=== PATIENT | female | born 1960 | race Caucasian/White ===

== ENCOUNTER → 2017-02-09 | Outpatient (CLI) | payer MEDICARE, OTHER ==
[2017-02-09 14:30] LABS: EKG EKG PERFORMED
[2017-02-09 14:58] LABS: CH 33.2; HCT 47.9 % (34.0-46.0); HDW 2.47; HGB 15.8 gm/dL (11.4-16.0); MCH 32.3 pg (25.0-35.0); Mean Platelet Volume 6.9; RBC 4.88 m/uL (3.80-5.40); WBC 11.9 k/uL (3.8-10.6)
[2017-02-09 15:00] LABS: INR 1.1 (<1.1); Partial Thromboplastin Time 25.8 sec (22.0-30.0)
[2017-02-09 15:01] LABS: ALT 26 U/L (9-52); AST 15 U/L (14-36); Alkaline Phosphatase 93 U/L (38-126); Anion Gap 11 mmol/L; Blood Urea Nitrogen 19 mg/dL (7-17); Calcium 10.4 mg/dL (8.4-10.2); Carbon Dioxide 25 mmol/L (22-30); Chloride 106 mmol/L (98-107); Glucose 104 mg/dL (74-99); Non-African American GFR(MDRD) >60 (>60 ml/min/1.73 sqM); Potassium 4.5 mmol/L (3.5-5.1); Sodium 142 mmol/L (137-145); Total Bilirubin 0.7 mg/dL (0.2-1.3); Total Protein 8.3 g/dL (6.3-8.2)
[2017-02-09 15:14] LABS: Appearance,Urine Cloudy (Clear); Bacteria,Urine Occasional /hpf; Bilirubin,Urine Negative (Negative); Glucose,Urine (UA) Negative (Negative); Ketones,Urine Negative (Negative); Leukocyte Esterase,Urine Large (Negative); Mucus,Urine Rare /hpf; Nitrite,Urine Negative (Negative); Particle Count 5813; Protein,Urine Trace (Negative); Specific Gravity,Urine 1.017 (1.001-1.035); Squamous Epithelial Cell,Urine 8 /hpf (0-4); UA Billing (MACRO vs. MICRO) MICRO; Uric Acid Crystals,Urine Occasional /hpf; Urobilinogen,Urine <2.0 mg/dL (<2.0); WBC,Urine 9 /hpf (0-5)
== END | disposition home or self-care (01) ==
LOC: LABPAT 14:18
PROVIDERS: ATTEND Orthopaedic Surgery
DX: Z01.812 Encounter for preprocedural laboratory examination (principal); Z01.818 Encounter for other preprocedural examination
CPT/HCPCS: 80053; 81001; 85027; 85610; 85730; 86850; 86900; 86901; 87070; 93005

== ENCOUNTER 2017-02-17 09:30 | Inpatient (IN) | payer MEDICARE, OTHER ==
[2017-02-16 09:01] VITALS: BMI 28.3
[~2017-02-17 09:30] MED LIST: ACETAMINOPHEN TAB 500 MG TAB PO ONE; MELOXICAM 7.5 MG TAB PO ONE; TRANEXAMIC ACID 1,000 MG in SODIUM CHLORIDE 0.9% 100 ML IVPB ONE; ceFAZolin 2 GM in SODIUM CHLORIDE 0.9% 100 ML IVPB ONE
[2017-02-17] MEDS ORDERED: LACTATED RINGERS 1,000 ML IV ONE ×3 (10:31→16:41)
[2017-02-17] MEDS ORDERED: ONDANSETRON 4 MG/2 ML VIAL IVP ONE (10:32)
[2017-02-17] MEDS ORDERED: DEXAMETHASONE SOD PHOSPHATE 10 MG/ML 1 ML VIAL IV ONE (10:33)
[2017-02-17] MEDS ORDERED: MIDAZOLAM 2 MG/2 ML VIAL IV ONE (12:38)
[2017-02-17] MEDS ORDERED: fentaNYL (PF) 50 MCG/ML 2 ML AMP IV ONE (13:22)
[2017-02-17] MEDS ORDERED: SUCCINYLCHOLINE CHLORIDE 100 MG/5 ML SYR IV ONE (13:27)
[2017-02-17] MEDS ORDERED: LIDOCAINE 1% INJ 10MG/ML (20 ML MDV) ONE (13:27)
[2017-02-17] MEDS ORDERED: SODIUM CHLORIDE 0.9% 100 ML BAG ONE (13:27)
[2017-02-17] MEDS ORDERED: MIDAZOLAM 2 MG/2 ML VIAL ONE (13:27)
[2017-02-17] MEDS ORDERED: SODIUM CHLORIDE 0.9% IRRIG 1,000 ML BTL IRRIGATION ONE (13:27)
[2017-02-17] MEDS ORDERED: GLYCOPYRROLATE 0.2 MG/ML 2 ML VIAL ONE (13:27)
[2017-02-17] MEDS ORDERED: TRANEXAMIC ACID 1,000 MG/10 ML VIAL ONE (13:27)
[2017-02-17] MEDS ORDERED: HEPARIN SODIUM,PORCINE 10,000 UNIT/ML 1 ML VIAL ONE (13:27)
[2017-02-17] MEDS ORDERED: fentaNYL (PF) 50 MCG/ML 2 ML AMP ONE (13:27)
[2017-02-17] MEDS ORDERED: NEOSTIGMINE 1 MG/ML 10 ML VIAL ONE (13:27)
[2017-02-17] MEDS ORDERED: PROPOFOL 10 MG/ML 20 ML VIAL IV ONE (13:27)
[2017-02-17] MEDS ORDERED: ROCURONIUM BROMIDE 10 MG/ML 10 ML VIAL IV ONE (13:27)
[2017-02-17] MEDS ORDERED: MORPHINE SULFATE 10 MG/ML SYRINGE ONE (13:27)
[2017-02-17] MEDS ORDERED: MAGNESIUM HYDROXIDE 2,400 MG/10 ML CUP PO PRN (13:52)
[2017-02-17] MEDS ORDERED: hydrOXYzine PAMOATE 25 MG CAP PO PRN (13:52)
[2017-02-17] MEDS ORDERED: HYDROcodone/APAP 5-325MG 1 EACH TAB PO PRN (13:52)
[2017-02-17] MEDS ORDERED: HYDROmorphone 1 MG/ML 1 ML SYRINGE IVP PRN ×2 (13:52)
[2017-02-17] MEDS ORDERED: NALOXONE 0.4 MG/ML 1 ML VIAL IV PRN (13:52)
[2017-02-17] MEDS ORDERED: ONDANSETRON 4 MG/2 ML VIAL IVP PRN (13:52)
[2017-02-17] MEDS ORDERED: DIAZEPAM 5 MG TAB PO PRN ×2 (13:52)
[2017-02-17] MEDS: ROPIVACAINE 246.25 MG, EPINEPHrine 0.5 MG, KETOROLAC 30 MG, cloNIDine HCL/PF 80 MCG, WA... MISCELLANE ONE ×10 (14:18→14:58)
[2017-02-17] MEDS ORDERED: ceFAZolin 3,000 MG in SODIUM CHLORIDE 0.9% IRRIGATIO 3,000 ML IRRIGATION ONE (14:19)
--- NOTE | 2017-02-17 15:11 | P.OP ---
Date of Procedure: 02/17/17 Preoperative Diagnosis: Severe osteoarthritis left hip Postoperative Diagnosis: Severe osteoarthritis left hip Procedure(s) Performed: Left total hip arthroplasty with a direct anterior approach Implants: Francois and nephew Polarstem size 2 standard [employer]ois [employer] Nephew R3, 3 hole acetabular shell, 50 mm [employer]ois [employer]hew reflection 6.5 mm cancellus screw, 20 mm 2 [employer]hew R3, XLPE 20 acetabular liner [employer]ois [employer]hew Oxinium femoral head 32 m, +8 All components were press-fit. The articulation is ceramic on polyethylene. Anesthesia: spinal Surgeon: Darwin Garcia Electronics Lead #1: Susi Romero Electronics Lead #2: Elyssa Díaz Estimated Blood Loss (ml): 150 (63cc returned with cell saver) Pathology: other (Femoral head) Condition: stable Disposition: PACU Indications for Procedure: After failure of conservative treatment we discussed the surgical and nonsurgical treatment options at length. Patient wishes to proceed with a total hip arthroplasty with a direct anterior approach. Complications specific to this procedure were discussed at length, including but not limited to infection, leg length discrepancy, dislocation, and nerve injury. Patient is aware of all these complications and informed consent was obtained Operative Findings: The operative findings are consistent with severe osteoarthritis the left hip Description of Procedure: Patient was seen and evaluated in the preoperative area, consent was reviewed, and the surgical site was marked with a skin marker. Patient was then brought to the operating room and given prophylactic antibiotics intravenously. 1 g of Tranexamic acid was also given. A spinal anesthetic was administered by the anesthesia department. The patient was then placed on the [place] table with the bony prominences well-padded. The hip area was then prepped and draped in usual sterile fashion. A universal timeout was then performed, which confirmed the patient's name, surgical site, ALLERGIES, and procedure being performed. Next the incision site was located at 1 cm distal and 1 cm lateral to the anterior superior iliac spine. The skin and subcutaneous tissues were sharply incised. Incision was carefully dissected down to the fascia overlying the tensor fascia romario muscle. This fascia was then incised in line with the incision. Next, using blunt finger dissection, the tensor fascia romario muscle was dissected off its investing fascia. The muscle was then carefully retracted laterally with a cobra retractor over the lateral neck of the femur. Next, the circumflex vessels were identified and cauterized using the AquaMantis device. The anterior hip capsule was then exposed. The capsule was then opened and an inverted T fashion. Retention sutures were placed in the inferior arms of the capsule. Cobra retractors were then placed intracapsularly. The proximal femur was then visualized. The femoral neck was then osteotomized appropriate level above the lesser trochanter. Small amount of traction was placed with the [place] table. A small wedge of bone was then removed from the remaining femoral head. Next, using a corkscrew femoral head was easily removed from the acetabulum. On gross visual inspection, the femoral head had complete loss of articular cartilage in multiple periarticular osteophytes. Attention was then turned to the acetabulum. the acetabulum was exposed and any remaining labrum was excised. Sequential reaming of the acetabulum was performed using fluoroscopic guidance. When the appropriate size was reached, a trial was then placed. The position and fit of the trial was checked with fluoroscopy. The trial was then removed. Then, using fluoroscopic guidance, the final implant was impacted at 20 of anteversion and 40 of abduction, and fully seated in the acetabulum. 2 screws were then placed in the acetabulum. Again fluoroscopy was used to check position of the screws. Next, the liner was then impacted, with a 20 elevated liner located in the anterior superior quadrant. Component locking was confirmed. Attention was then directed to the femur. With the aid of the [place] table, the femur was externally rotated to approximately 130, extended, and abducted under the opposite leg. A side hook was then placed under the proximal femur, and the side hook elevator was used to elevate the proximal femur. Retractors were then placed. A capsular release was performed, as well as a release of the conjoined tendon, which afforded excellent visualization of the proximal femur. Next, a box osteotome was used to lateralize the proximal femur. A hand i thermal cutter was then used to locate the femoral canal. Sequential broaching was then performed with appropriate size which afforded excellent fixation in the proximal femur. A trial was then placed with appropriate head and neck, and the hip was gently reduced with the aid of the [place] table. Fluoroscopy was then used to check position of the components, as well as to ensure equal leg lengths. The hip was then gently dislocated and the trials were then removed. Final implants were then impacted and the hip was again reduced. Final fluoroscopic x-rays confirmed that the components were in anatomic position, as well as equal leg lengths. The hip was also taken through range of motion, and found to be stable. The hip was then copiously irrigated with antibiotic solution with pulsatile lavage. The hip was then irrigated with Irrisept solution. The soft tissues were then injected with a ropivacaine solution, which consisted of 246.25 mg of ropivacaine, 0.5 mg of epinephrine, 30 mg of Toradol, 80 g of clonidine, and 48.45 mL of sterile water, for a total of 100 mL of fluid injected. A second dose of 1 g of Tranexamic acid was also given. the fascia was then closed with 2-0 strata fix suture. The subcutaneous tissue was closed with 3-0 Vicryl. The subcuticular tissue was closed with 3-0 strata fix suture. The skin was then closed with Dermabond tape. The patient was then transferred to the recovery room in stable condition. The sound assistant CAMILA Padilla was required due to the complexity of surgery , and the need for skilled compliance assistant for positioning, draping, exposure , retraction, and closure of the wound.
--- NOTE | 2017-02-17 15:18 | XR ---
Limited left hip HISTORY: Left hip arthroplasty 3 intraoperative C-arm images document the procedure
--- NOTE | 2017-02-17 15:18 | FL ---
Fluoroscopy HISTORY: Hip arthroplasty 48 seconds fluoroscopy time supplied to the referring clinician. 3 intraoperative C-arm images docum ent the procedure. See dictated report from orthopedic surgery.
[2017-02-17] MEDS ORDERED: HYDROmorphone 1 MG/ML 1 ML SYRINGE IVP ONE ×2 (16:20→16:28)
--- NOTE | 2017-02-17 16:41 | XR ---
EXAMINATION TYPE: XR Hip Limited LT DATE OF EXAM: 02/17/2017 4:21 PM COMPARISON: Pelvis x-ray November 12, 2013 HISTORY: Postop TECHNIQUE: Single view FINDINGS: There is a new left hip prosthesis. Components appear in anatomic position. IMPRESSION: Left hip prosthesis without evidence of a complicating process.
[2017-02-17] MEDS: HYDROmorphone 1 MG/ML 1 ML SYRINGE IVP PRN (18:45)
[2017-02-17] MEDS ORDERED: SENNOSIDES-DOCUSATE SODIUM 1 EACH TAB PO SCH (21:00)
[2017-02-17] MEDS ORDERED: amLODIPine 10 MG TAB PO SCH (21:00)
[2017-02-17] MEDS: HYDROcodone/APAP 5-325MG 1 EACH TAB PO PRN (21:01)
[2017-02-17] MEDS: ASPIRIN 325 MG TAB PO SCH (21:05)
[2017-02-17] MEDS: ceFAZolin 2 GM in SODIUM CHLORIDE 0.9% 100 ML IVPB SCH (21:42)
[2017-02-18] MEDS: HYDROcodone/APAP 5-325MG 1 EACH TAB PO PRN ×2 (03:32→10:42)
[2017-02-18] MEDS ORDERED: LEVOTHYROXINE 25 MCG TAB PO SCH (06:30)
[2017-02-18] MEDS: HYDROmorphone 1 MG/ML 1 ML SYRINGE IVP PRN (07:19)
[2017-02-18 07:21] VITALS: BP 130/90; PULSE 66; RESP 16; TEMP 97.7
[2017-02-18 07:36] LABS: Basophils # (A) 0.1 k/uL (0-0.2); Basophils % (A) 1 %; CH 33.7; Eosinophils # (A) 0.1 k/uL (0-0.7); Eosinophils % (A) 0 %; HCT 37.9 % (34.0-46.0); HDW 2.53; HGB 12.9 gm/dL (11.4-16.0); Luc # (Auto) 0.12; Luc % (Auto) 1; Lymphocytes # (A) 2.2 k/uL (1.0-4.8); Lymphocytes % (A) 19 %; MCH 33.8 pg (25.0-35.0); MCV 99.5 fL (80.0-100.0); Monocytes # (A) 0.6 k/uL (0-1.0); Monocytes % (A) 5 %; Neutrophils # (A) 8.8 k/uL (1.3-7.7); Neutrophils % (A) 75 %; RDW 13.2 % (11.5-15.5); WBC 11.7 k/uL (3.8-10.6); WBC (Perox) 11.04
[2017-02-18] MEDS: ASPIRIN 325 MG TAB PO SCH (08:01)
[2017-02-18] MEDS: SODIUM CHLORIDE 0.9% 1,000 ML IV SCH (08:08)
[2017-02-18] MEDS ORDERED: METOPROLOL SUCCINATE (ER) 100 MG TAB.ER.24H PO SCH (09:00)
[2017-02-18] MEDS ORDERED: LISINOPRIL-HCTZ 10-12.5 MG 1 EACH TAB PO SCH (09:00)
[2017-02-18] MEDS ORDERED: MELOXICAM 7.5 MG TAB PO SCH (09:00)
--- NOTE | 2017-02-18 09:03 | P.DS ---
Providers Date of admission: 02/17/17 09:30 Expected date of discharge: 02/18/17 Attending physician: Darwin Garcia Consults: 02/17/17 13:55 Consult Physician Routine Consulting Provider: Petrona Cardenas Consult Reason/Comments: medical management Do you want consulting provider notified?: Yes 02/17/17 17:51 Consult Physician Routine Consulting Provider: Lashonda Pina Consult Reason/Comments: Medical Management Do you want consulting provider notified?: Yes Primary care physician: Warren Garcia, [facility] Hospital Course: This is a 56-year-old female with known history of degenerative arthritis of the left hip. The patient presents for evaluation. After discussion and consideration patient elects to proceed with total hip arthroplasty. The patient is seen preoperatively by Dr. Garcia and cleared for surgery. Patient is admitted to [facility] on 02/17/2017 for total hip arthroplasty. The procedures performed without complication or sequelae. The patient is doing well postoperatively. Labs and vital signs are stable on day of discharge. On day of discharge patient's hip incision is healing well. Patient has been up walking with physical therapy. There is minimal erythema. There is no drainage noted at this time. There is minimal soft tissue swelling to the hip and thigh. Patient has full foot and ankle motion without difficulty or pain. Neurovascular status to the left lower extremity is intact. Patient is discharged home in good condition.Please see med rec for accurate list of home medications. Plan - Discharge Summary New Discharge Prescriptions: Aspirin 325 mg PO BID #60 tab HYDROcodone/APAP 5-325MG [[place] 5-325] 1 - 2 tab PO Q4-6H PRN #90 tab PRN Reason: Pain Sennosides-Docusate Sodium [Senokot-S] 1 tab PO BID #60 tablet Discharge Medication List amLODIPine [Norvasc] 10 mg PO HS 05/16/14 [History] Aspirin 650 mg PO Q8HR PRN 02/16/17 [History] Celecoxib [CeleBREX] 200 mg PO DAILY 02/16/17 [History] HYDROcodone/APAP 10-325MG [[place] 10-325] 1 tab PO BID PRN 02/16/17 [History] Ibuprofen [Motrin] 800 mg PO Q8HR PRN 02/16/17 [History] Levothyroxine Sodium [Synthroid] 25 mcg PO DAILY 02/16/17 [History] Lisinopril-Hctz 10-12.5 mg [Zestoretic 10-12.5] 1 tab PO QAM 02/16/17 [History] Metoprolol Succinate [Toprol XL] 100 mg PO QAM 02/16/17 [History] Aspirin 325 mg PO BID #60 tab 02/18/17 [Rx] HYDROcodone/APAP 5-325MG [[place] 5-325] 1 - 2 tab PO Q4-6H PRN #90 tab 02/18/17 [ Rx] Sennosides-Docusate Sodium [Senokot-S] 1 tab PO BID #60 tablet 02/18/17 [Rx] Follow up Appointment(s)/Referral(s): Darwin Garcia DO [Doctor of Osteopathic Medicine] - 2 Weeks Activity/Diet/Wound Care/Special Instructions: Weightbearing as tolerated with walker May shower after 2 days if no drainage from the incision Follow-up with [facility] in 2 weeks with any questions or concerns, [phone] Discharge Disposition: HOME WITH HOME HEALTH SERVICES
[2017-02-18] MEDS: ceFAZolin 2 GM in SODIUM CHLORIDE 0.9% 100 ML IVPB SCH (09:18)
--- NOTE | 2017-02-18 11:52 | P.CONS ---
History of Present Illness - Reason for Consult Consult date: 02/18/17 Medical management Requesting physician: Sukhwinder Mukherjee - Chief Complaint Left hip pain - History of Present Illness This is a 56-year-old female with past medical history noted below significant for severe osteoarthritis of the left hip who was admitted to the hospital for elective total left hip arthroplasty. Patient is postoperative day #1. She's tolerated the procedure well. She was up with physical therapy earlier with no difficulty. She denies any pain or discomfort at this time. I was asked to see her for medical management. Review of Systems Review of system: 14 points review of systems were obtained and were negative except to what were mentioned in the HPI. Past Medical History Past Medical History: GERD/Reflux, Hypertension, Musculoskeletal Disorder, Osteoarthritis (OA), Thyroid Disorder Additional Past Medical History / Comment(s): Past hx of GERD & Migraines., DDD , chronic back pain, scoliosis. History of Any Multi-Drug Resistant Organisms: None Reported Past Surgical History: Cholecystectomy, Joint Replacement Additional Past Surgical History / Comment(s): ORIF left ankle, exploratory laparotomy, Tear duct surgery, Total right hip. Past Anesthesia/Blood Transfusion Reactions: No Reported Reaction Past Psychological History: No Psychological Hx Reported Smoking Status: Current every day smoker Past Alcohol Use History: None Reported Additional Past Alcohol Use History / Comment(s): SMOKES < PPD. SMOKING SINCE 15 YEARS OLD (41 YEARS) Past Drug Use History: None Reported - Past Family History Mother Family Medical History: No Reported History Father Family Medical History: No Reported History Medications and Allergies Home Medications Medication Instructions Recorded Confirmed Type amLODIPine [Norvasc] 10 mg PO HS 05/16/14 02/17/17 History Aspirin 650 mg PO Q8HR PRN 02/16/17 02/17/17 History Celecoxib [CeleBREX] 200 mg PO DAILY 02/16/17 02/17/17 History HYDROcodone/APAP 10-325MG [[place] 1 tab PO BID PRN 02/16/17 02/17/17 History 10-325] Ibuprofen [Motrin] 800 mg PO Q8HR PRN 02/16/17 02/17/17 History Levothyroxine Sodium [Synthroid] 25 mcg PO DAILY 02/16/17 02/17/17 History Lisinopril-Hctz 10-12.5 mg 1 tab PO QAM 02/16/17 02/17/17 History [Zestoretic 10-12.5] Metoprolol Succinate [Toprol XL] 100 mg PO QAM 02/16/17 02/17/17 History Allergies Allergy/AdvReac Type Severity Reaction Status Date / Time pravastatin Allergy Unknown Short of Verified 02/16/17 08:18 Breath, Anxious codeine Allergy Itching Verified 02/16/17 08:17 sulfamethoxazole Allergy throat Verified 02/16/17 08:17 [From Bactrim] tight trimethoprim [From Bactrim] Allergy throat Verified 02/16/17 08:17 tight Physical Exam Vitals: Vital Signs Temp Pulse Resp BP Pulse Ox 02/18/17 07:00 97.7 F 66 16 130/90 99 02/18/17 01:13 98.2 F 65 17 108/62 93 L 02/18/17 00:00 20 02/17/17 20:00 98.0 F 95 20 121/71 91 L 02/17/17 18:30 70 118/75 02/17/17 18:15 73 125/63 02/17/17 18:00 63 128/82 02/17/17 17:45 78 145/97 02/17/17 17:30 73 122/75 02/17/17 17:15 98.3 F 67 16 119/70 97 02/17/17 16:35 68 16 140/77 96 02/17/17 16:25 67 16 141/84 97 02/17/17 16:05 71 16 140/82 97 02/17/17 15:48 64 16 141/84 98 02/17/17 15:37 97.6 F 79 16 141/73 97 Intake and Output 02/17/17 02/18/17 02/18/17 22:59 06:59 14:59 Intake Total 225 120 Output Total 400 Balance -175 120 Intake: IV 225 Oral 120 Output: Urine 250 Estimated Blood Loss 150 Other: Voiding Method Toilet # Voids 1 Weight 72.575 kg General: The patient is awake and alert, in no distress Eye: there is normal conjunctiva bilaterally. Neck: The neck is supple, there is no JVD. Cardiovascular: Normal S1-S2, no S3-S4, no murmurs. Respiratory: Lungs clear to auscultation bilaterally Gastrointestinal: Abdomen is soft, nontender Musculoskeletal: There is no pedal edema. Neurological:. Speech is normal. Skin: Skin is warm and dry Results CBC & Chem 7: 02/18/17 06:31 Labs: Abnormal Lab Results - Last 24 Hours (Table) 02/18/17 Range/Units 06:31 WBC 11.7 H (3.8-10.6) k/uL Neutrophils # 8.8 H (1.3-7.7) k/uL Assessment and Plan Plan: 1. Severe osteoarthritis of the left hip status post total left hip arthroplasty postoperative day #1 2. DVT prophylaxis currently with full dose aspirin twice daily per orthopedic protocol 3. Essential hypertension: Blood pressure well controlled 4. Hypothyroidism, maintained on Synthroid Today, I reviewed her medication list and lab work results. Continue current regimen. Thank you very much for the consultation. Patient is medically cleared for discharge. Resume home medication as ordered.
== END 2017-02-18 13:38 | disposition home health service (06) | DRG 470 ==
LOC: 2ORMAIN 09:30 → 3SUR 16:11
PROVIDERS: ADMIT Orthopaedic Surgery; ATTEND Orthopaedic Surgery
PROC: 0SRB04A Replacement of Left Hip Joint with Ceramic on Polyethylene Synthetic Substitute, Uncemented, Open Approach (ICD-10-PCS; principal; 2017-02-17 11:45)
DX: M16.12 Unilateral primary osteoarthritis, left hip (principal); M41.9 Scoliosis, unspecified; I10 Essential (primary) hypertension; F17.200 Nicotine dependence, unspecified, uncomplicated; K21.9 Gastro-esophageal reflux disease without esophagitis; M19.91 Primary osteoarthritis, unspecified site; E03.9 Hypothyroidism, unspecified; G89.29 Other chronic pain; M54.9 Dorsalgia, unspecified; Z96.641 Presence of right artificial hip joint; Z90.49 Acquired absence of other specified parts of digestive tract; Z79.82 Long term (current) use of aspirin; Z79.1 Long term (current) use of non-steroidal anti-inflammatories (NSAID); Z79.899 Other long term (current) drug therapy
CPT/HCPCS: 73501; 85025; 86850; 86900; 86901; 88300

== ENCOUNTER 2018-09-23 06:42 | Day surgery (SDC) | payer MEDICARE, OTHER ==
[2018-09-21 15:09] VITALS: BMI 28.3
[~2018-09-23 06:42] MED LIST changes: -ACETAMINOPHEN TAB 500 MG TAB PO ONE; +LACTATED RINGERS 1,000 ML IV SCH; +LIDOCAINE 1% 20 ML VIAL (10MG/ML) FOR IV START INTRADERMA PRN; -MELOXICAM 7.5 MG TAB PO ONE; -TRANEXAMIC ACID 1,000 MG in SODIUM CHLORIDE 0.9% 100 ML IVPB ONE; -ceFAZolin 2 GM in SODIUM CHLORIDE 0.9% 100 ML IVPB ONE
[2018-09-23 07:10] VITALS: TEMP 98.4
[2018-09-23] MEDS ORDERED: LACTATED RINGERS 1,000 ML IV ONE (07:29)
[2018-09-23] MEDS ORDERED: PROPOFOL 10 MG/ML 20 ML VIAL IV ONE (07:42)
[2018-09-23] MEDS ORDERED: LIDOCAINE 1% INJ 10MG/ML (20 ML MDV) ONE (07:42)
--- NOTE | 2018-09-23 07:48 | P.GSHP ---
History of Present Illness H&P Date: 09/23/18 Chief Complaint: Screening colonoscopy This is a 58-year-old female referred from Belem Roth NP,who presents today for screening colonoscopy. Patient denies any significant GI complaints. She' s never had a colonoscopy before. Past Medical History Past Medical History: GERD/Reflux, Hypertension, Osteoarthritis (OA) Additional Past Medical History / Comment(s): DDD, chronic back pain, scoliosis History of Any Multi-Drug Resistant Organisms: None Reported Past Surgical History: Cholecystectomy, Joint Replacement Additional Past Surgical History / Comment(s): ORIF left ankle, exploratory laparotomy,martin hip replacement Past Anesthesia/Blood Transfusion Reactions: No Reported Reaction Smoking Status: Current every day smoker - Past Family History Mother Family Medical History: No Reported History Father Family Medical History: No Reported History Medications and Allergies Home Medications Medication Instructions Recorded Confirmed Type amLODIPine [Norvasc] 10 mg PO QAM 05/16/14 09/23/18 History Lisinopril-Hctz 10-12.5 mg 1 tab PO QAM 02/16/17 09/23/18 History [Zestoretic 10-12.5] Metoprolol Succinate [Toprol XL] 100 mg PO QAM 02/16/17 09/23/18 History HYDROcodone/APAP 7.5-325MG [[place] 1 tab PO DAILY PRN 09/21/18 09/21/18 History 7.5-325] diphenhydrAMINE HCL [Benadryl] 50 mg PO HS 09/21/18 09/23/18 History Nitrofurantoin Monohyd/M-Cryst 100 mg PO Q12HR 09/23/18 09/23/18 History [Macrobid] Allergies Allergy/AdvReac Type Severity Reaction Status Date / Time pravastatin Allergy Unknown Short of Verified 09/21/18 15:02 Breath, Anxious codeine Allergy Itching Verified 09/21/18 15:02 sulfamethoxazole Allergy throat Verified 09/21/18 15:02 [From Bactrim] tight trimethoprim [From Bactrim] Allergy throat Verified 09/21/18 15:02 tight Surgical - Exam Vital Signs Temp Pulse Resp BP Pulse Ox 98.4 F 86 17 169/106 97 09/23/18 07:09 09/23/18 07:09 09/23/18 07:09 09/23/18 07:09 09/23/18 07:09 - General well developed, well nourished, no distress - Eyes PERRL - ENT normal pinna - Neck no masses - Respiratory normal expansion - Cardiovascular Rhythm: regular - Abdomen Abdomen: soft, non tender Assessment and Plan Assessment: We'll perform screening colonoscopy.
--- NOTE | 2018-09-23 08:03 | P.OP ---
Date of Procedure: 09/23/18 Preoperative Diagnosis: Screening colonoscopy Postoperative Diagnosis: Rectal polyp Procedure(s) Performed: Colonoscopy Anesthesia: MAC Surgeon: Silvio Damian Pathology: other (Rectal polyp) Description of Procedure: The patient's placed on the endoscopy table in the lateral position. She received IV sedation. Digital rectal exam was performed which revealed no abnormalities. Flexible colonoscope was then placed patient anus and passed throughout the entire colon. The ileocecal valve was visualized. The cecum, ascending and transverse colon appeared normal. In the descending and sigmoid colon was a few scattered diverticula. The scope was then brought back into the rectum and a polyp was seen was removed the cold forcep. Scope was withdrawn from the patient.
[2018-09-23 08:08] VITALS: PULSE 69; RESP 18
[2018-09-23 08:16] VITALS: BP 148/80
== END 2018-09-23 08:33 | disposition home or self-care (01) ==
LOC: ORWHC2ENDO 06:42
PROVIDERS: ATTEND Surgery
DX: Z12.11 Encounter for screening for malignant neoplasm of colon (principal); K62.1 Rectal polyp; K57.30 Diverticulosis of large intestine without perforation or abscess without bleeding; I10 Essential (primary) hypertension; K21.9 Gastro-esophageal reflux disease without esophagitis; M19.90 Unspecified osteoarthritis, unspecified site; G89.29 Other chronic pain; M54.9 Dorsalgia, unspecified; F17.200 Nicotine dependence, unspecified, uncomplicated; Z79.891 Long term (current) use of opiate analgesic; Z79.899 Other long term (current) drug therapy; Z88.5 Allergy status to narcotic agent; Z88.2 Allergy status to sulfonamides; Z88.8 Allergy status to other drugs, medicaments and biological substances
CPT/HCPCS: 88305; 45380; J2001; J2704

== ENCOUNTER → 2021-04-22 | Outpatient (CLI) | payer MEDICARE, OTHER ==
[2021-04-22 23:16] LABS: Basophils # (A) 0.07 X 10*3/uL (0.00-0.10); Basophils % (A) 0.7 %; Eosinophils # (A) 0.13 X 10*3/uL (0.04-0.35); Eosinophils % (A) 1.4 %; HCT 46.5 % (37.2-46.3); HGB 15.2 g/dL (12.0-15.0); Lymphocytes # (A) 2.95 X 10*3/uL (0.90-5.00); Lymphocytes % (A) 31.4 %; MCH 31.6 pg (27.0-32.0); MCHC 32.7 g/dL (32.0-37.0); MCV 96.7 fL (80.0-97.0); Monocytes # (A) 0.55 X 10*3/uL (0.20-1.00); Monocytes % (A) 5.9 %; Neutrophils # (A) 5.65 X 10*3/uL (1.80-7.70); Neutrophils % (A) 60.3 %; Platelet Count 328 X 10*3/uL (140-440); RBC 4.81 X 10*6/uL (4.10-5.20); RDW 13.3 % (11.5-14.5); WBC 9.38 X 10*3/uL (4.50-10.00)
[2021-04-23 02:55] LABS: ALT <8 U/L (8-44); AST 14 U/L (13-35); African American GFR (CKD) 62.8 (60.0-200.0); Alkaline Phosphatase 124 U/L (41-126); BUN/Creat Ratio 23.64 Ratio (12.00-20.00); Calcium 9.6 mg/dL (8.7-10.3); Carbon Dioxide 19.6 mmol/L (21.6-31.8); Chloride 112 mmol/L (96-109); Glucose 119 mg/dL (70-110); Non-African American GFR(CKD) 54.1 (60.0-200.0); Phosphorus 3.6 mg/dL (2.4-5.1); Potassium 4.3 mmol/L (3.5-5.5); Sodium 140 mmol/L (135-145); Total Bilirubin 0.3 mg/dL (0.3-1.2); Total Protein 7.5 g/dL (6.2-8.2)
== END | disposition home or self-care (01) ==
LOC: LABWHC1 15:57
PROVIDERS: ATTEND Nurse Practitioner Family
DX: N19 Unspecified kidney failure (principal)
CPT/HCPCS: 36415; 80053; 84100; 85025

== ENCOUNTER → 2021-06-03 | Outpatient (CLI) | payer MEDICARE, OTHER ==
[2021-06-03 15:57] LABS: Appearance,Urine Cloudy (Clear); Bilirubin,Urine 1+ (Negative); Blood,Urine Negative (Negative); Color,Urine Yellow; Glucose,Urine (UA) Negative (Negative); Hyaline Casts,Urine 11 /lpf (0-2); Ketones,Urine Trace (Negative); Leukocyte Esterase,Urine Moderate (Negative); Mucus,Urine Few /hpf; Nitrite,Urine Negative (Negative); Protein,Urine 1+ (Negative); RBC,Urine 1 /hpf (0-5); Specific Gravity,Urine 1.033 (1.001-1.035); Squamous Epithelial Cell,Urine 7 /hpf (0-4); WBC,Urine 12 /hpf (0-5)
[2021-06-03 22:43] LABS: HCT 46.5 % (37.2-46.3); HGB 14.8 g/dL (12.0-15.0); MCH 31.8 pg (27.0-32.0); MCHC 31.8 g/dL (32.0-37.0); Mean Platelet Volume 9.8 fL (9.5-12.2); Platelet Count 378 X 10*3/uL (140-440); RBC 4.65 X 10*6/uL (4.10-5.20); RDW 13.6 % (11.5-14.5); WBC 8.93 X 10*3/uL (4.50-10.00)
[2021-06-04 05:26] LABS: Ferritin 48.5 ng/mL (10.0-291.0)
[2021-06-04 05:28] LABS: % Iron Saturation 25.46 (12.00-45.00); African American GFR (CKD) 62.8 (60.0-200.0); Albumin 4.3 g/dL (3.80-4.90); Albumin/Globulin Ratio 1.48 (1.60-3.17); Anion Gap 11.6 mmol/L (4.00-12.00); BUN/Creat Ratio 13.64 Ratio (12.00-20.00); Calcium 9.2 mg/dL (8.7-10.3); Carbon Dioxide 20.4 mmol/L (21.6-31.8); Globulin 2.9 g/dL (1.6-3.3); Magnesium 1.9 mg/dL (1.5-2.4); Non-African American GFR(CKD) 54.1 (60.0-200.0); Phosphorus 3.3 mg/dL (2.4-5.1); Potassium 3.9 mmol/L (3.5-5.5); Total Bilirubin 0.4 mg/dL (0.2-1.2); Total Protein 7.2 g/dL (6.2-8.2); Uric Acid 6.8 mg/dL (2.9-7.7)
== END | disposition home or self-care (01) ==
LOC: LABWHC1 15:21
PROVIDERS: ATTEND Internal Medicine
DX: N18.9 Chronic kidney disease, unspecified (principal); D64.9 Anemia, unspecified; N39.0 Urinary tract infection, site not specified; N25.81 Secondary hyperparathyroidism of renal origin; E55.9 Vitamin D deficiency, unspecified; M10.9 Gout, unspecified
CPT/HCPCS: 36415; 80053; 81001; 82306; 82728; 83540; 83550; 83735; 83970; 84100; 84550; 85027

== ENCOUNTER → 2022-03-21 | Outpatient (CLI) | payer MEDICARE, OTHER ==
--- NOTE | 2022-03-24 09:38 | MM ---
Reason for Exam: Screening (asymptomatic). Last mammogram was performed 22 year(s) and 8 month(s) ago. Patient History: Menarche at age 13. Patient has no children. Postmenopausal. Risk Values: [place] 5 year model risk: 1.5%. NCI Lifetime model risk: 7.0%. Prior Study Comparison: 07/18/1999 Bilateral Screening Mammogram, [facility]. Tissue Density: The breast tissue is heterogeneously dense. This may lower the sensitivity of mammography. Findings: Analyzed By CAD. Retroareolar nodule right breast requires ultrasound workup. There is also an asymmetric area of distortion right cc view centrally zone C. Overall Assessment: Incomplete: need additional imaging evaluation, BI-RAD 0 Management: Diagnostic Mammogram of the right breast. A clinical breast exam by your physician is recommended on an annual basis and results should be correlated with mammographic findings. Electronically signed and approved by: Sachin Miller M.D. Radiologis
== END | disposition home or self-care (01) ==
LOC: RADMAMWWP 16:58
PROVIDERS: ATTEND Family Medicine
DX: Z12.31 Encounter for screening mammogram for malignant neoplasm of breast (principal); Z78.0 Asymptomatic menopausal state
CPT/HCPCS: 77063; 77067

== ENCOUNTER → 2022-05-06 | Outpatient (CLI) | payer MEDICARE, OTHER ==
[2022-05-06 22:35] LABS: Basophils # (A) 0.06 X 10*3/uL (0.00-0.10); Basophils % (A) 0.6 %; Eosinophils # (A) 0.12 X 10*3/uL (0.04-0.35); Eosinophils % (A) 1.2 %; HCT 50.8 % (37.2-46.3); HGB 16.2 g/dL (12.0-15.0); Immature Grans, Automated 0.3 %; Lymphocytes # (A) 2.66 X 10*3/uL (0.90-5.00); Lymphocytes % (A) 25.8 %; MCH 31.5 pg (27.0-32.0); MCHC 31.9 g/dL (32.0-37.0); MCV 98.8 fL (80.0-97.0); Mean Platelet Volume 10.4 fL (9.5-12.2); Monocytes # (A) 0.72 X 10*3/uL (0.20-1.00); NRBC Per 100 WBC 0 /100 WBCS (0.0-0.0); Neutrophils # (A) 6.73 X 10*3/uL (1.80-7.70); Neutrophils % (A) 65.1 %; Platelet Count 374 X 10*3/uL (140-440); RBC 5.14 X 10*6/uL (4.10-5.20); RDW 12.7 % (11.5-14.5); WBC 10.32 X 10*3/uL (4.50-10.00)
[2022-05-06 22:59] LABS: African American GFR (CKD) 47.4 (60.0-200.0); Albumin 4.5 g/dL (3.8-4.9); Albumin/Globulin Ratio 1.3 (1.60-3.17); Anion Gap 14.5 mmol/L (10.00-18.00); BUN/Creat Ratio 18.19 Ratio (12.00-20.00); Blood Urea Nitrogen 25.1 mg/dL (9.0-27.0); Carbon Dioxide 21.8 mmol/L (20.0-27.5); Globulin 3.4 g/dL (1.6-3.3); Non-African American GFR(CKD) 40.9 (60.0-200.0); Potassium 4.2 mmol/L (3.5-5.5); Total Bilirubin 0.5 mg/dL (0.30-1.20); Total Protein 7.9 g/dL (6.2-8.2)
== END | disposition home or self-care (01) ==
LOC: LABWHC1 16:22
PROVIDERS: ATTEND Student in an Organized Health Care Education/Training Program
DX: L29.8 Other pruritus (principal); L53.8 Other specified erythematous conditions; L73.8 Other specified follicular disorders; L82.1 Other seborrheic keratosis; L82.0 Inflamed seborrheic keratosis
CPT/HCPCS: 36415; 80053; 82728; 85025

== ENCOUNTER → 2022-07-11 | Outpatient (CLI) | payer MEDICARE, OTHER ==
[2022-07-11 23:10] LABS: Appearance,Urine Clear (Clear); Bilirubin,Urine Negative (Negative); Blood,Urine Negative (Negative); Color,Urine Yellow (Yellow); Ketones,Urine Negative (Negative); Nitrite,Urine Negative (Negative); Specific Gravity,Urine 1.021 (1.001-1.030)
[2022-07-11 23:20] LABS: Bacteria,Urine Trace /HPF (None Seen)
[2022-07-12 00:50] LABS: African American GFR (CKD) 61.9 (60.0-200.0); Albumin 4.2 g/dL (3.8-4.9); Albumin/Globulin Ratio 1.56 (1.60-3.17); Anion Gap 13.2 mmol/L (10.00-18.00); BUN/Creat Ratio 16.45 Ratio (12.00-20.00); Blood Urea Nitrogen 18.1 mg/dL (9.0-27.0); Calcium 9.7 mg/dL (8.7-10.3); Globulin 2.7 g/dL (1.6-3.3); Non-African American GFR(CKD) 53.4 (60.0-200.0); Potassium 4.9 mmol/L (3.5-5.5); Total Bilirubin 0.3 mg/dL (0.30-1.20); Total Protein 6.8 g/dL (6.2-8.2)
[2022-07-12 00:51] LABS: % Iron Saturation 29.99 (12.00-45.00); Magnesium 2.1 mg/dL (1.5-2.4); Phosphorus 3.1 mg/dL (2.4-5.1); Uric Acid 4.3 mg/dL (2.9-7.7)
[2022-07-12 00:53] LABS: Basophils # (A) 0.06 X 10*3/uL (0.00-0.10); Basophils % (A) 0.6 %; Eosinophils # (A) 0.16 X 10*3/uL (0.04-0.35); Eosinophils % (A) 1.7 %; HCT 47.2 % (37.2-46.3); HGB 15.4 g/dL (12.0-15.0); Immature Grans, Automated 0.3 %; Lymphocytes % (A) 27.2 %; MCH 32.3 pg (27.0-32.0); MCHC 32.6 g/dL (32.0-37.0); Mean Platelet Volume 9.9 fL (9.5-12.2); Monocytes # (A) 0.64 X 10*3/uL (0.20-1.00); Monocytes % (A) 6.7 %; NRBC Per 100 WBC 0 /100 WBCS (0.0-0.0); Neutrophils # (A) 6.06 X 10*3/uL (1.80-7.70); Neutrophils % (A) 63.5 %; Platelet Count 340 X 10*3/uL (140-440); RBC 4.77 X 10*6/uL (4.10-5.20); RDW 12.7 % (11.5-14.5); WBC 9.55 X 10*3/uL (4.50-10.00)
== END | disposition home or self-care (01) ==
LOC: LABWHC1 15:45
PROVIDERS: ATTEND Nurse Practitioner Family
DX: N39.0 Urinary tract infection, site not specified (principal); N18.31 Chronic kidney disease, stage 3a; D63.1 Anemia in chronic kidney disease; N25.81 Secondary hyperparathyroidism of renal origin; E55.9 Vitamin D deficiency, unspecified; M10.9 Gout, unspecified
CPT/HCPCS: 36415; 80053; 81001; 82306; 82728; 83540; 83550; 83735; 83970; 84100; 84550; 85025

== ENCOUNTER → 2022-10-08 | Outpatient (CLI) | payer MEDICARE, OTHER ==
--- NOTE | 2022-10-09 08:06 | XR ---
EXAMINATION TYPE: XR knee 4V RT DATE OF EXAM: 10/08/2022 4:12 PM INDICATION: Patient age:Female; 62 years old; Reason for study: M25.561 PAIN IN RIGHT KNEE, M25.461 EFFUSION, RIGH COMPARISON: None. TECHNIQUE: The Right knee(s) was examined in Frontal, lateral, sunrise patellar and oblique projectio ns. FINDINGS: No evidence of any acute osseous pathology, or soft tissue swelling. Tricompartmental osteophyte formation involving the femoral condyles, tibial plateau and patella. Mi ld joint space narrowing. Small joint effusion. IMPRESSION: 1. No acute osseous pathology. 2. Mild tricompartmental osteoarthritic changes.
== END | disposition home or self-care (01) ==
LOC: RADXRMAIN 15:59
PROVIDERS: ATTEND Nurse Practitioner Family
DX: M17.11 Unilateral primary osteoarthritis, right knee (principal); M25.461 Effusion, right knee

== ENCOUNTER 2023-03-23 17:43 | Emergency (ER) | payer MEDICARE, OTHER ==
[2023-03-23 17:50] VITALS: RESP 20; TEMP 98.5
--- NOTE | 2023-03-23 19:21 | ED ---
Extremity Problem HPI - General Chief complaint: Extremity Problem,Nontraumatic Stated complaint: right foot pain Time Seen by Provider: 03/23/23 19:11 Source: patient, RN notes reviewed Mode of arrival: ambulatory Limitations: no limitations - History of Present Illness Initial comments: 62-year-old female presents emergency Department with chief complaint of right foot pain. Patient states that she's had a sore on fifth digit for a while she states she's been self treating at home she is a was black but that fell off and states that the wound itself is getting better but her pain is increased. Patient denies any fevers chills denies being diabetic denies seen anybody for this infection. - Related Data Home Medications Medication Instructions Recorded Confirmed amLODIPine [Norvasc] 10 mg PO QAM 05/16/14 09/23/18 Lisinopril-Hctz 10-12.5 mg 1 tab PO QAM 02/16/17 09/23/18 [Zestoretic 10-12.5] Metoprolol Succinate [Toprol XL] 100 mg PO QAM 02/16/17 09/23/18 HYDROcodone/APAP 7.5-325MG [[place] 1 tab PO DAILY PRN 09/21/18 09/21/18 7.5-325] diphenhydrAMINE HCL [Benadryl] 50 mg PO HS 09/21/18 09/23/18 Nitrofurantoin Monohyd/M-Cryst 100 mg PO Q12HR 09/23/18 09/23/18 [Macrobid] Previous Rx's Medication Instructions Recorded Ibuprofen [Motrin] 600 mg PO Q8HR PRN #20 tab 03/23/23 clindamycin HCL 300 mg PO QID #40 cap 03/23/23 Allergies Allergy/AdvReac Type Severity Reaction Status Date / Time pravastatin Allergy Unknown Short of Verified 03/23/23 17:49 Breath, Anxious codeine Allergy Itching Verified 03/23/23 17:49 sulfamethoxazole Allergy throat Verified 03/23/23 17:49 [From Bactrim] tight trimethoprim [From Bactrim] Allergy throat Verified 03/23/23 17:49 tight Review of Systems ROS Statement: Those systems with pertinent positive or pertinent negative responses have been documented in the HPI. ROS Other: All systems not noted in ROS Statement are negative. Past Medical History Past Medical History: GERD/Reflux, Hypertension, Osteoarthritis (OA) Additional Past Medical History / Comment(s): DDD, chronic back pain, scoliosis History of Any Multi-Drug Resistant Organisms: None Reported Past Surgical History: Cholecystectomy, Joint Replacement Additional Past Surgical History / Comment(s): ORIF left ankle, exploratory laparotomy,martin hip replacement Past Anesthesia/Blood Transfusion Reactions: No Reported Reaction Past Psychological History: No Psychological Hx Reported Smoking Status: Current every day smoker Past Alcohol Use History: None Reported Past Drug Use History: None Reported - Past Family History Mother Family Medical History: No Reported History Father Family Medical History: No Reported History General Exam Limitations: no limitations General appearance: alert, in no apparent distress Head exam: Present: atraumatic, normocephalic, normal inspection Eye exam: Present: normal appearance, PERRL, EOMI. Absent: scleral icterus, conjunctival injection, periorbital swelling Neck exam: Present: full ROM Respiratory exam: Present: normal lung sounds bilaterally. Absent: respiratory distress, wheezes, rales, rhonchi, stridor Cardiovascular Exam: Present: regular rate, normal rhythm, normal heart sounds. Absent: systolic murmur, diastolic murmur, rubs, gallop, clicks Neurological exam: Present: alert Skin exam: Present: warm, dry, intact, normal color. Absent: rash Course Vital Signs 03/23/23 03/23/23 17:48 20:29 Temperature 98.5 F Pulse Rate 89 80 Respiratory 20 20 Rate Blood Pressure 153/97 162/100 O2 Sat by Pulse 99 97 Oximetry Medical Decision Making - Medical Decision Making Was pt. sent in by a medical professional or institution (Dr. PA, SHIPPING CLERK/ADMIN, urgent care, hospital, or senior care...) When possible be specific @ -No Did you speak to anyone other than the patient for history (EMS, parent, family, police, friend...)? What history was obtained from this source @ -No Did you review nursing and triage notes (agree or disagree)? Why? @ -I reviewed and agree with nursing and triage notes Were old charts reviewed (outside hosp., previous admission, EMS record, old EKG, old radiological studies, urgent care reports/EKG's, senior care records)? Report findings @ -No old charts were reviewed Differential Diagnosis (chest pain, altered mental status, abdominal pain women, abdominal pain men, vaginal bleeding, weakness, fever, dyspnea, syncope, headache, dizziness, GI bleed, back pain, seizure, CVA, palpatations, mental health, musculoskeletal)? @ -Foot ulcer, osteomyelitis, toe fracture, this list is not all-inclusive EKG interpreted by me (3pts min.). @ -None X-rays interpreted by me (1pt min.). @ -X-ray shows no evidence of acute fracture or osteomyelitis, questionable foreign body noted done CT interpreted by me (1pt min.). @ -None done U/S interpreted by me (1pt. min.). @ -None done What testing was considered but not performed or refused? (CT, X-rays, U/S, labs)? Why? @ -None What meds were considered but not given or refused? Why? @ -None Did you discuss the management of the patient with other professionals (professionals i.e. , PA, SHIPPING CLERK/ADMIN, lab, RT, psych nurse, social service worker, hogshead filler, teacher, disability insurance hearing officer, family service caseworker)? Give summary @ -No Was smoking cessation discussed for >3mins.? @ -No Was critical care preformed (if so, how long)? @ -No Were there social determinants of health that impacted care today? How? (Homelessness, low income, unemployed, alcoholism, drug addiction, transportation, low edu. Level, literacy, decrease access to med. care, fdc, rehab)? @ -No Was there de-escalation of care discussed even if they declined (Discuss DNR or withdrawal of care, Hospice)? DNR status @ -No What co-morbidities impacted this encounter? (DM, HTN, Smoking, COPD, CAD, Cancer, CVA, ARF, Chemo, Hep., AIDS, mental health diagnosis, sleep apnea, morbid obesity)? @ -None Was patient admitted / discharged? Hospital course, mention meds given and route, prescriptions, significant lab abnormalities, going to OR and other pertinent info. @ -Discharged patient has no definite osteomyelitis there is questionable foreign body though this appears to be in surface of the wound. Patient has minimal erythema in which patient will be given antibiotics and follow-up with podiatry right topical pain relief as requested. Undiagnosed new problem with uncertain prognosis? @ -No Drug Therapy requiring intensive monitoring for toxicity (Heparin, Nitro, Insulin, Cardizem)? @ -No Were any procedures done? @ -No Diagnosis/symptom? @ -[Toe pain, toe ulceration Acute, or Chronic, or Acute on Chronic? @ -Acute Uncomplicated (without systemic symptoms) or Complicated (systemic symptoms)? @ -Uncomplicated Side effects of treatment? @ -No Exacerbation, Progression, or Severe Exacerbation? @ -No] Poses a threat to life or bodily function? How? (Chest pain, [place], [place], pneumonia, PE, COPD, DKA, ARF, appy, cholecystitis, CVA, Diverticulitis, Homicidal, Suicidal, threat to staff... and all critical care pts) @ -[No] Disposition Clinical Impression: Wound, open, toe Disposition: HOME SELF-CARE Condition: Stable Instructions (If sedation given, give patient instructions): Wound Infection (ED) Additional Instructions: Please return to the Emergency Department if symptoms worsen or any other concerns. Prescriptions: clindamycin HCL 300 mg PO QID #40 cap Ibuprofen [Motrin] 600 mg PO Q8HR PRN #20 tab PRN Reason: Pain Is patient prescribed a controlled substance at d/c from ED?: No Referrals: Francisco Hernandez MD [Primary Care Provider] - 1-2 days Levon Hernandez DPM [STAFF PHYSICIAN] - 1-2 days Time of Disposition: 20:15
--- NOTE | 2023-03-23 19:47 | XR ---
EXAMINATION TYPE: XR foot complete RT DATE OF EXAM: 03/23/2023 7:30 PM INDICATION: Patient age:Female; 62 years old; Reason for study: Foot pain, fifth digit pain, ulceration; COMPARISON: None TECHNIQUE: The right foot was examined in the AP, oblique, and lateral projections. FINDINGS: No evidence of any acute osseous pathology. Mild soft tissue swelling involving the fifth digit. Tamy nts are preserved. Small density in the plantar surface of the fifth digit could represent opaque foreign body. Correlat e with history of trauma. IMPRESSION: 1. No evidence of acute fracture. 2. There may be mild soft tissue swelling along the fifth digit. Consider MRI for further evaluation . 3. Small density in the plantar surface of the fifth digit could represent opaque foreign body. Corre late with history of trauma.
[2023-03-23] MEDS ORDERED: traMADol 50 MG STARTER PACK 3 TAB BTL PO STA (20:11)
[2023-03-23] MEDS ORDERED: BENZOCAINE/MENTHOL SPRAY 1 GM/SPRAY AEROSOL TOPICAL STA (20:11)
[2023-03-23 20:30] VITALS: BP 162/100; PULSE 80
== END 2023-03-23 21:19 | disposition home or self-care (01) ==
LOC: EC 17:43
DX: L97.519 Non-pressure chronic ulcer of other part of right foot with unspecified severity (principal); I10 Essential (primary) hypertension; M19.90 Unspecified osteoarthritis, unspecified site; F17.200 Nicotine dependence, unspecified, uncomplicated; Z88.2 Allergy status to sulfonamides; Z88.5 Allergy status to narcotic agent; Z88.8 Allergy status to other drugs, medicaments and biological substances; Z79.899 Other long term (current) drug therapy
CPT/HCPCS: 99283

== ENCOUNTER 2023-05-19 19:15 | Emergency (ER) | payer MEDICARE, OTHER ==
[2023-05-19 19:24] VITALS: RESP 18
[2023-05-19] MEDS ORDERED: SODIUM CHLORIDE 0.9% 1,000 ML IV ONE (20:54)
--- NOTE | 2023-05-19 21:14 | ED ---
General Adult HPI - General Chief complaint: Fever Stated complaint: dizziness Time Seen by Provider: 05/19/23 19:19 Source: patient, EMS Mode of arrival: EMS Limitations: no limitations - History of Present Illness Initial comments: This is a 62-year-old female with a past medical history including hypertension presents emergency department via EMS for dizziness. The patient stated that since Thursday she experienced room spinning dizziness that was only present when she stood up. The patient stated that she had continued symptoms and was conc erned she came to the emergency department. The patient stated that she had an episode of diarrhea multiple times throughout the week previously but stated that this had resolved. The patient denied any fevers, chills as well as any recent sick contacts. The patient was otherwise resting in bed comfortably without any acute distress. - Related Data Home Medications Medication Instructions Recorded Confirmed amLODIPine [Norvasc] 10 mg PO QAM 05/16/14 09/23/18 Lisinopril-Hctz 10-12.5 mg 1 tab PO QAM 02/16/17 09/23/18 [Zestoretic 10-12.5] Metoprolol Succinate [Toprol XL] 100 mg PO QAM 02/16/17 09/23/18 HYDROcodone/APAP 7.5-325MG [[place] 1 tab PO DAILY PRN 09/21/18 09/21/18 7.5-325] diphenhydrAMINE HCL [Benadryl] 50 mg PO HS 09/21/18 09/23/18 Nitrofurantoin Monohyd/M-Cryst 100 mg PO Q12HR 09/23/18 09/23/18 [Macrobid] Previous Rx's Medication Instructions Recorded Ibuprofen [Motrin] 600 mg PO Q8HR PRN #20 tab 03/23/23 clindamycin HCL 300 mg PO QID #40 cap 03/23/23 Allergies Allergy/AdvReac Type Severity Reaction Status Date / Time pravastatin Allergy Unknown Short of Verified 03/23/23 17:49 Breath, Anxious codeine Allergy Itching Verified 03/23/23 17:49 sulfamethoxazole Allergy throat Verified 03/23/23 17:49 [From Bactrim] tight trimethoprim [From Bactrim] Allergy throat Verified 03/23/23 17:49 tight Review of Systems ROS Statement: Those systems with pertinent positive or pertinent negative responses have been documented in the HPI. ROS Other: All systems not noted in ROS Statement are negative. Past Medical History Past Medical History: GERD/Reflux, Hypertension, Osteoarthritis (OA) Additional Past Medical History / Comment(s): DDD, chronic back pain, scoliosis History of Any Multi-Drug Resistant Organisms: None Reported Past Surgical History: Cholecystectomy, Joint Replacement Additional Past Surgical History / Comment(s): ORIF left ankle, exploratory laparotomy,martin hip replacement Past Anesthesia/Blood Transfusion Reactions: No Reported Reaction Past Psychological History: No Psychological Hx Reported Smoking Status: Current every day smoker Past Alcohol Use History: None Reported Past Drug Use History: None Reported - Past Family History Mother Family Medical History: No Reported History Father Family Medical History: No Reported History General Exam Limitations: no limitations General appearance: alert, in no apparent distress Head exam: Present: atraumatic, normocephalic, normal inspection Eye exam: Present: normal appearance, PERRL Pupils: Present: normal accommodation ENT exam: Present: normal exam, normal oropharynx, mucous membranes moist Neck exam: Present: normal inspection, full ROM Respiratory exam: Present: normal lung sounds bilaterally Cardiovascular Exam: Present: regular rate, normal rhythm, normal heart sounds GI/Abdominal exam: Present: soft, normal bowel sounds Extremities exam: Present: normal inspection, full ROM Back exam: Present: normal inspection, full ROM Neurological exam: Present: alert, oriented X3, CN II-XII intact Psychiatric exam: Present: normal affect, normal mood Skin exam: Present: warm, dry Course Vital Signs 05/19/23 19:20 Temperature 99.9 F H Pulse Rate 69 Respiratory 18 Rate Blood Pressure 129/69 O2 Sat by Pulse 93 L Oximetry EKG Findings - EKG Comments: EKG Findings:: An EKG was obtained and was interpreted by myself showing a rate of 70, LA interval 120, QR amish 96 and QTC of 417. This EKG showed a normal sinus rhythm with no ST segment elevation or depression noted. Medical Decision Making - Medical Decision Making Was pt. sent in by a medical professional or institution (, PA, [employer], urgent care, hospital, or shelter...) When possible be specific @ -No Did you speak to anyone other than the patient for history (EMS, parent, family, police, friend...)? What history was obtained from this source @ -No Did you review nursing and triage notes (agree or disagree)? Why? @ -I reviewed and agree with nursing and triage notes Were old charts reviewed (outside hosp., previous admission, EMS record, old EKG, old radiological studies, urgent care reports/EKG's, shelter records)? Report findings @ -No old charts were reviewed Differential Diagnosis (chest pain, altered mental status, abdominal pain women, abdominal pain men, vaginal bleeding, weakness, fever, dyspnea, syncope, headache, dizziness, GI bleed, back pain, seizure, CVA, palpatations, mental health)? @ -Dehydration, electrolyte abnormality, upper respiratory infection EKG interpreted by me (3pts min.). @ -As above X-rays interpreted by me (1pt min.). @ -Chest x-ray was obtained and was interpreted by myself showing no acute process. CT interpreted by me (1pt min.). @ -None done U/S interpreted by me (1pt. min.). @ -None done What testing was considered but not performed or refused? (CT, X-rays, U/S, labs)? Why? @ -None What meds were considered but not given or refused? Why? @ -None Did you discuss the management of the patient with other professionals (professionals i.e. , PA, [employer], lab, RT, psych nurse, social worker school, estimator printing, teacher, radiological defense officer, keycase assembler)? Give summary @ -No Was smoking cessation discussed for >3mins.? @ -No Was critical care preformed (if so, how long)? @ -No Were there social determinants of health that impacted care today? How? (Homelessness, low income, unemployed, alcoholism, drug addiction, transportation, low edu. Level, literacy, decrease access to med. care, half-way, rehab)? @ -No Was there de-escalation of care discussed even if they declined (Discuss DNR or withdrawal of care, Hospice)? DNR status @ -No What co-morbidities impacted this encounter? (DM, HTN, Smoking, COPD, CAD, Cancer, CVA, ARF, Chemo, Hep., AIDS, mental health diagnosis, sleep apnea, morbi d obesity)? @ -Hypertension, hyperlipidemia Was patient admitted / discharged? Hospital course, mention meds given and route, prescriptions, significant lab abnormalities, going to OR and other pertinent info. @ -The patient was seen and evaluated emergency department. Physical exam, the patient was resting in bed without any acute distress. Vital signs admission were stable. The patient was resting without any acute complaints. All l aboratory workup and imaging was within normal limits and all decided vital signs are negative. The patient was able to emulate around the emergency department without any dizziness or lightheadedness. The patient stated her symptoms. The patient was likely dehydrated as a cause of her symptoms and was stable for discharge home. The patient was told to report back to her primary care physician for further workup and evaluation and to report to the emergency department if her pain became acutely worse. The patient was agreeable to this and all her questions were answered. The patient was discharged home in stable condition. Undiagnosed new problem with uncertain prognosis? @ -No Drug Therapy requiring intensive monitoring for toxicity (Heparin, Nitro, Insulin, Cardizem)? @ -No Were any procedures done? @ -No Diagnosis/symptom? @ -Dizziness, NOS, resolved Acute, or Chronic, or Acute on Chronic? @ -Acute Uncomplicated (without systemic symptoms) or Complicated (systemic symptoms)? @ -Uncomplicated Side effects of treatment? @ -No Exacerbation, Progression, or Severe Exacerbation? @ -No Poses a threat to life or bodily function? How? (Chest pain, [place], [place], pneumonia, PE, COPD, DKA, ARF, appy, cholecystitis, CVA, Diverticulitis, Homicidal, Suicidal, threat to staff... and all critical care pts) @ -No - Lab Data Result diagrams: 05/19/23 20:54 05/19/23 20:54 Lab Results 05/19/23 05/19/23 05/19/23 Range/Units 20:54 20:54 20:54 WBC 12.8 H (3.8-10.6) k/uL RBC 4.23 (3.80-5.40) m/uL Hgb 13.7 (11.4-16.0) gm/dL Hct 41.9 (34.0-46.0) % MCV 99.0 (80.0-100.0) fL MCH 32.4 (25.0-35.0) pg MCHC 32.7 (31.0-37.0) g/dL RDW 12.7 (11.5-15.5) % Plt Count 243 (150-450) k/uL MPV 8.0 Neutrophils % 80 % Lymphocytes % 13 % Monocytes % 6 % Eosinophils % 1 % Basophils % 0 % Neutrophils # 10.2 H (1.3-7.7) k/uL Lymphocytes # 1.6 (1.0-4.8) k/uL Monocytes # 0.7 (0-1.0) k/uL Eosinophils # 0.1 (0-0.7) k/uL Basophils # 0.1 (0-0.2) k/uL PT 11.0 (9.0-12.0) sec INR 1.0 (<1.2) APTT 23.8 (22.0-30.0) sec Sodium 135 L (137-145) mmol/L Potassium 3.4 L (3.5-5.1) mmol/L Chloride 106 (98-107) mmol/L Carbon Dioxide 18 L (22-30) mmol/L Anion Gap 11 mmol/L BUN 12 (7-17) mg/dL Creatinine 0.95 (0.52-1.04) mg/dL Est GFR (CKD-EPI)AfAm 74 (>60 ml/min/1.73 sqM) Est GFR (CKD-EPI)NonAf 64 (>60 ml/min/1.73 sqM) Glucose 109 H (74-99) mg/dL Calcium 7.9 L (8.4-10.2) mg/dL Magnesium 1.5 L (1.6-2.3) mg/dL Total Bilirubin 0.4 (0.2-1.3) mg/dL AST 36 (14-36) U/L ALT 34 (4-34) U/L Alkaline Phosphatase 422 H (38-126) U/L Troponin I (0.000-0.034) ng/mL NT-Pro-B Natriuret Pep 776 pg/mL Total Protein 5.5 L (6.3-8.2) g/dL Albumin 2.7 L (3.5-5.0) g/dL Lipase 22 L (23-300) U/L Influenza Type A (PCR) (Not Detectd) Influenza Type B (PCR) (Not Detectd) RSV (PCR) (Not Detectd) SARS-CoV-2 (PCR) (Not Detectd) 05/19/23 05/19/23 Range/Units 20:54 20:54 WBC (3.8-10.6) k/uL RBC (3.80-5.40) m/uL Hgb (11.4-16.0) gm/dL Hct (34.0-46.0) % MCV (80.0-100.0) fL MCH (25.0-35.0) pg MCHC (31.0-37.0) g/dL RDW (11.5-15.5) % Plt Count (150-450) k/uL MPV Neutrophils % % Lymphocytes % % Monocytes % % Eosinophils % % Basophils % % Neutrophils # (1.3-7.7) k/uL Lymphocytes # (1.0-4.8) k/uL Monocytes # (0-1.0) k/uL Eosinophils # (0-0.7) k/uL Basophils # (0-0.2) k/uL PT (9.0-12.0) sec INR (<1.2) APTT (22.0-30.0) sec Sodium (137-145) mmol/L Potassium (3.5-5.1) mmol/L Chloride (98-107) mmol/L Carbon Dioxide (22-30) mmol/L Anion Gap mmol/L BUN (7-17) mg/dL Creatinine (0.52-1.04) mg/dL Est GFR (CKD-EPI)AfAm (>60 ml/min/1.73 sqM) Est GFR (CKD-EPI)NonAf (>60 ml/min/1.73 sqM) Glucose (74-99) mg/dL Calcium (8.4-10.2) mg/dL Magnesium (1.6-2.3) mg/dL Total Bilirubin (0.2-1.3) mg/dL AST (14-36) U/L ALT (4-34) U/L Alkaline Phosphatase (38-126) U/L Troponin I <0.012 (0.000-0.034) ng/mL NT-Pro-B Natriuret Pep pg/mL Total Protein (6.3-8.2) g/dL Albumin (3.5-5.0) g/dL Lipase (23-300) U/L Influenza Type A (PCR) Not Detected (Not Detectd) Influenza Type B (PCR) Not Detected (Not Detectd) RSV (PCR) Not Detected (Not Detectd) SARS-CoV-2 (PCR) Not Detected (Not Detectd) Disposition Clinical Impression: Dizziness, Dehydration Disposition: HOME SELF-CARE Condition: Stable Instructions (If sedation given, give patient instructions): Dizziness (ED) Is patient prescribed a controlled substance at d/c from ED?: No Referrals: Francisco Hernandez MD [Primary Care Provider] - 1-2 days Time of Disposition: 22:00
[2023-05-19 21:21] LABS: Basophils # (A) 0.1 k/uL (0-0.2); Basophils % (A) 0 %; Eosinophils # (A) 0.1 k/uL (0-0.7); Eosinophils % (A) 1 %; HCT 41.9 % (34.0-46.0); HGB 13.7 gm/dL (11.4-16.0); Lymphocytes # (A) 1.6 k/uL (1.0-4.8); Lymphocytes % (A) 13 %; MCH 32.4 pg (25.0-35.0); MCHC 32.7 g/dL (31.0-37.0); Monocytes # (A) 0.7 k/uL (0-1.0); Monocytes % (A) 6 %; Neutrophils # (A) 10.2 k/uL (1.3-7.7); Neutrophils % (A) 80 %; Platelet Count 243 k/uL (150-450); RBC 4.23 m/uL (3.80-5.40); RDW 12.7 % (11.5-15.5); WBC 12.8 k/uL (3.8-10.6)
[2023-05-19 21:29] LABS: Partial Thromboplastin Time 23.8 sec (22.0-30.0)
[2023-05-19 21:33] LABS: ALT 34 U/L (4-34); AST 36 U/L (14-36); African American GFR (CKD) 74 (>60 ml/min/1.73 sqM); Albumin 2.7 g/dL (3.5-5.0); Alkaline Phosphatase 422 U/L (38-126); Anion Gap 11 mmol/L; Blood Urea Nitrogen 12 mg/dL (7-17); Calcium 7.9 mg/dL (8.4-10.2); Carbon Dioxide 18 mmol/L (22-30); Chloride 106 mmol/L (98-107); Glucose 109 mg/dL (74-99); Lipase 22 U/L (23-300); Magnesium 1.5 mg/dL (1.6-2.3); Non-African American GFR(CKD) 64 (>60 ml/min/1.73 sqM); Potassium 3.4 mmol/L (3.5-5.1); Sodium 135 mmol/L (137-145); Total Bilirubin 0.4 mg/dL (0.2-1.3); Total Protein 5.5 g/dL (6.3-8.2)
[2023-05-19 21:41] LABS: NT-Pro-B-Type Natriuretic Pept 776 pg/mL
--- NOTE | 2023-05-19 21:57 | XR ---
EXAMINATION TYPE: XR chest 2V DATE OF EXAM: 05/19/2023 9:50 PM COMPARISON: 11/12/2013 TECHNIQUE: XR chest 2V Frontal and lateral views of the chest. CLINICAL INDICATION:Female, 62 years old with history of Fever, SOB; FINDINGS: Lungs/Pleura: There is no evidence of pleural effusion, focal consolidation, or pneumothorax. Pulmonary vascularity: Unremarkable. Heart/mediastinum: Cardiomediastinal silhouette is unremarkable. Musculoskeletal: No acute osseous pathology. IMPRESSION: No acute cardiopulmonary disease/process.
[2023-05-19 23:25] VITALS: BP 137/79; PULSE 81; TEMP 98.6
== END 2023-05-19 23:29 | disposition home or self-care (01) ==
LOC: EC 19:15
DX: R42 Dizziness and giddiness (principal); E86.0 Dehydration; I10 Essential (primary) hypertension; M19.90 Unspecified osteoarthritis, unspecified site; F17.200 Nicotine dependence, unspecified, uncomplicated; Z79.899 Other long term (current) drug therapy; Z20.822 Contact with and (suspected) exposure to COVID-19; Z88.2 Allergy status to sulfonamides; Z88.8 Allergy status to other drugs, medicaments and biological substances; Z90.49 Acquired absence of other specified parts of digestive tract
CPT/HCPCS: 36415; 71046; 80053; 83690; 83735; 83880; 84484; 85025; 85610; 85730; 87636; 93005; 96360; 99285

== ENCOUNTER 2024-03-26 18:21 | Inpatient (IN) | payer MEDICARE, OTHER ==
--- NOTE | 2024-03-26 19:44 | ED ---
SOB HPI - General Chief Complaint: Shortness of Breath Stated Complaint: SOB Time Seen by Provider: 03/26/24 19:09 Source: patient, family, RN notes reviewed Mode of arrival: ambulatory Limitations: no limitations - History of Present Illness Initial Comments: 63-year-old female who is a smoker but has no history of COPD or asthma but states she been having shortness of breath for the past several days worse today. She also states has been having peripheral edema to her lower extremities over the same period of time. No fevers chills or sweats she states she feels very anxious has exertional dyspnea has had a cough but no production and also no fevers chills or sweats. Also no chest pain no prior history of CHF. MD Complaint: shortness of breath, anxiety - Related Data Home Medications Medication Instructions Recorded Confirmed amLODIPine [Norvasc] 10 mg PO QAM 05/16/14 09/23/18 Lisinopril-Hctz 10-12.5 mg 1 tab PO QAM 02/16/17 09/23/18 [Zestoretic 10-12.5] Metoprolol Succinate [Toprol XL] 100 mg PO QAM 02/16/17 09/23/18 HYDROcodone/APAP 7.5-325MG [[place] 1 tab PO DAILY PRN 09/21/18 09/21/18 7.5-325] diphenhydrAMINE HCL [Benadryl] 50 mg PO HS 09/21/18 09/23/18 Nitrofurantoin Monohyd/M-Cryst 100 mg PO Q12HR 09/23/18 09/23/18 [Macrobid] Previous Rx's Medication Instructions Recorded Ibuprofen [Motrin] 600 mg PO Q8HR PRN #20 tab 03/23/23 clindamycin HCL 300 mg PO QID #40 cap 03/23/23 Allergies Allergy/AdvReac Type Severity Reaction Status Date / Time pravastatin Allergy Unknown Short of Verified 03/26/24 18:41 Breath, Anxious codeine Allergy Itching Verified 03/26/24 18:41 sulfamethoxazole Allergy throat Verified 03/26/24 18:41 [From Bactrim] tight trimethoprim [From Bactrim] Allergy throat Verified 03/26/24 18:41 tight Review of Systems ROS Statement: Those systems with pertinent positive or pertinent negative responses have been documented in the HPI. ROS Other: All systems not noted in ROS Statement are negative. Past Medical History Past Medical History: GERD/Reflux, Hypertension, Osteoarthritis (OA) Additional Past Medical History / Comment(s): DDD, chronic back pain, scoliosis History of Any Multi-Drug Resistant Organisms: None Reported Past Surgical History: Cholecystectomy, Joint Replacement Additional Past Surgical History / Comment(s): ORIF left ankle, exploratory laparotomy,martin hip replacement Past Anesthesia/Blood Transfusion Reactions: No Reported Reaction Past Psychological History: No Psychological Hx Reported Smoking Status: Current every day smoker Past Alcohol Use History: None Reported Past Drug Use History: None Reported - Past Family History Mother Family Medical History: No Reported History Father Family Medical History: No Reported History General Exam - General Exam Comments Initial Comments: Is a well-developed well-nourished awake alert anxious appearing female who does demonstrate some audible wheezing Limitations: no limitations General appearance: alert, anxious, in distress Head exam: Present: atraumatic, normocephalic, normal inspection Eye exam: Present: normal appearance, PERRL, EOMI. Absent: scleral icterus, conjunctival injection, periorbital swelling ENT exam: Present: mucous membranes dry Neck exam: Present: normal inspection, full ROM, other Respiratory exam: Present: wheezes, rales, decreased breath sounds ([place] JVD or bruits) Cardiovascular Exam: Present: regular rate, normal rhythm, normal heart sounds. Absent: systolic murmur, diastolic murmur, rubs, gallop, clicks GI/Abdominal exam: Present: soft, normal bowel sounds. Absent: distended, tende rness, guarding, rebound, rigid Extremities exam: Present: full ROM, normal capillary refill, pedal edema Back exam: Present: normal inspection Neurological exam: Present: alert, oriented X3, CN II-XII intact Psychiatric exam: Present: normal affect, normal mood Skin exam: Present: warm, dry, intact, normal color. Absent: rash Course Vital Signs 03/26/24 03/26/24 03/26/24 18:39 19:37 20:00 Temperature 97.5 F L Pulse Rate 85 81 84 Respiratory 24 18 18 Rate Blood Pressure 128/81 178/94 148/108 O2 Sat by Pulse 91 L 90 L 96 Oximetry 03/26/24 03/26/24 03/26/24 20:13 20:26 20:55 Temperature Pulse Rate 84 85 87 Respiratory 20 Rate Blood Pressure 177/113 O2 Sat by Pulse 98 Oximetry Medical Decision Making - Medical Decision Making Date of onset this with the patient and her family regarding the findings patie nt does demonstrate evidence of CHF as well as bronchospasm. Her BNP is markedly elevated. X-ray does evidence show evidence of increased pulmonary vascular markings consistent with CHF and cardiomegaly. She will be admitted. I did discuss case with Dr. Castro. Was pt. sent in by a medical professional or institution (, PA, POCKET MAKER, urgent care, hospital, or penitentiary...) When possible be specific @ -No Did you speak to anyone other than the patient for history (EMS, parent, family, police, friend...)? What history was obtained from this source @ -Family Did you review nursing and triage notes (agree or disagree)? Why? @ -I reviewed and agree with nursing and triage notes Were old charts reviewed (outside hosp., previous admission, EMS record, old EKG, old radiological studies, urgent care reports/EKG's, penitentiary records)? Report findings @ -Old charts were reviewed Differential Diagnosis (chest pain, altered mental status, abdominal pain women, abdominal pain men, vaginal bleeding, weakness, fever, dyspnea, syncope, headache, dizziness, GI bleed, back pain, seizure, CVA, palpatations, mental health, musculoskeletal)? @ -Not applicable EKG interpreted by me (3pts min.). @ -As above EKG interpreted by me sinus rhythm with occasional PVCs rate 86 AZ interval 141 QRS duration 100 QT/QTc 419/463 low voltage nonspecific T wave configuration X-rays interpreted by me (1pt min.). @ -'s x-ray interpreted by me evidence of increased pulmonary vascular markings and cardiomegaly consistent with CHF CT interpreted by me (1pt min.). @ -None done U/S interpreted by me (1pt. min.). @ -None done What testing was considered but not performed or refused? (CT, X-rays, U/S, labs)? Why? @ -None What meds were considered but not given or refused? Why? @ -None Did you discuss the management of the patient with other professionals (professionals i.e. , CAMILA, POCKET MAKER, lab, RT, psych nurse, social insurance adviser, it applications developer, teacher, logistics supply officer, counseling case manager)? Give summary @ -Dr. Castro Was smoking cessation discussed for >3mins.? @ -No Was critical care preformed (if so, how long)? @ -39 minutes Were there social determinants of health that impacted care today? How? (Li elessness, low income, unemployed, alcoholism, drug addiction, transportation, low edu. Level, literacy, decrease access to med. care, [facility], rehab)? @ -No Was there de-escalation of care discussed even if they declined (Discuss DNR or withdrawal of care, Hospice)? DNR status @ -No What co-morbidities impacted this encounter? (DM, HTN, Smoking, COPD, CAD, Cancer, CVA, ARF, Chemo, Hep., AIDS, mental health diagnosis, sleep apnea, morbid obesity)? @ -Patient is a smoker Was patient admitted / discharged? Hospital course, mention meds given and route, prescriptions, significant lab abnormalities, going to OR and other pertinent info. @ -Hospital course patient was admitted to the hospital for inpatient evaluation and treatment CHF bronchospasm peripheral edema Undiagnosed new problem with uncertain prognosis? @ -No Drug Therapy requiring intensive monitoring for toxicity (Heparin, Nitro, Insulin, Cardizem)? @ -No Were any procedures done? @ -No Diagnosis/symptom? @ -Acute pulmonary edema, acute bronchospasm, peripheral edema, elevated BNP, elevated troponin, elevated D-dimer Acute, or Chronic, or Acute on Chronic? @ -Acute Uncomplicated (without systemic symptoms) or Complicated (systemic symptoms)? @ -Default Side effects of treatment? @ -No Exacerbation, Progression, or Severe Exacerbation? @ -No Poses a threat to life or bodily function? How? (Chest pain, [place], [place], pneumonia, PE, COPD, DKA, ARF, appy, cholecystitis, CVA, Diverticulitis, Homicidal, Suicidal, threat to staff... and all critical care pts) @ -Potential, CHF, bronchospasm, elevated troponin - Lab Data Result diagrams: 03/26/24 19:50 03/26/24 19:50 Lab Results 03/26/24 03/26/24 03/26/24 Range/Units 19:50 19:50 19:50 WBC 7.9 (3.8-10.6) k/uL RBC 4.49 (3.80-5.40) m/uL Hgb 13.7 (11.4-16.0) gm/dL Hct 44.8 (34.0-46.0) % MCV 99.8 (80.0-100.0) fL MCH 30.5 (25.0-35.0) pg MCHC 30.6 L (31.0-37.0) g/dL RDW 14.5 (11.5-15.5) % Plt Count 222 (150-450) k/uL MPV 8.2 Neutrophils % 69 % Lymphocytes % 20 % Monocytes % 6 % Eosinophils % 3 % Basophils % 1 % Neutrophils # 5.5 (1.3-7.7) k/uL Lymphocytes # 1.6 (1.0-4.8) k/uL Monocytes # 0.4 (0-1.0) k/uL Eosinophils # 0.2 (0-0.7) k/uL Basophils # 0.0 (0-0.2) k/uL Hypochromasia Slight Macrocytosis Slight PT 11.0 (10.0-12.5) sec INR 1.0 (<1.2) APTT 25.4 (22.0-30.0) sec D-Dimer 1.40 H (<0.60) mg/L FEU Sodium 140 (137-145) mmol/L Potassium 4.3 (3.5-5.1) mmol/L Chloride 110 H (98-107) mmol/L Carbon Dioxide 21 L (22-30) mmol/L Anion Gap 9 mmol/L BUN 16 (7-17) mg/dL Creatinine 0.62 (0.52-1.04) mg/dL Est GFR (CKD-EPI)AfAm >90 (>60 ml/min/1.73 sqM) Est GFR (CKD-EPI)NonAf >90 (>60 ml/min/1.73 sqM) Glucose 87 (74-99) mg/dL Plasma Lactic Acid John (0.7-2.0) mmol/L Calcium 9.1 (8.4-10.2) mg/dL Magnesium 2.1 (1.6-2.3) mg/dL Total Bilirubin 1.3 (0.2-1.3) mg/dL AST 36 (14-36) U/L ALT 29 (4-34) U/L Alkaline Phosphatase 150 H (38-126) U/L Troponin I (0.000-0.034) ng/mL NT-Pro-B Natriuret Pep 35175 pg/mL Total Protein 7.1 (6.3-8.2) g/dL Albumin 4.1 (3.5-5.0) g/dL 03/26/24 03/26/24 Range/Units 19:50 19:50 WBC (3.8-10.6) k/uL RBC (3.80-5.40) m/uL Hgb (11.4-16.0) gm/dL Hct (34.0-46.0) % MCV (80.0-100.0) fL MCH (25.0-35.0) pg MCHC (31.0-37.0) g/dL RDW (11.5-15.5) % Plt Count (150-450) k/uL MPV Neutrophils % % Lymphocytes % % Monocytes % % Eosinophils % % Basophils % % Neutrophils # (1.3-7.7) k/uL Lymphocytes # (1.0-4.8) k/uL Monocytes # (0-1.0) k/uL Eosinophils # (0-0.7) k/uL Basophils # (0-0.2) k/uL Hypochromasia Macrocytosis PT (10.0-12.5) sec INR (<1.2) APTT (22.0-30.0) sec D-Dimer (<0.60) mg/L FEU Sodium (137-145) mmol/L Potassium (3.5-5.1) mmol/L Chloride (98-107) mmol/L Carbon Dioxide (22-30) mmol/L Anion Gap mmol/L BUN (7-17) mg/dL Creatinine (0.52-1.04) mg/dL Est GFR (CKD-EPI)AfAm (>60 ml/min/1.73 sqM) Est GFR (CKD-EPI)NonAf (>60 ml/min/1.73 sqM) Glucose (74-99) mg/dL Plasma Lactic Acid John 1.7 (0.7-2.0) mmol/L Calcium (8.4-10.2) mg/dL Magnesium (1.6-2.3) mg/dL Total Bilirubin (0.2-1.3) mg/dL AST (14-36) U/L ALT (4-34) U/L Alkaline Phosphatase (38-126) U/L Troponin I 0.052 H* (0.000-0.034) ng/mL NT-Pro-B Natriuret Pep pg/mL Total Protein (6.3-8.2) g/dL Albumin (3.5-5.0) g/dL Critical Care Time Critical Care Time: Yes Total Critical Care Time: 39 Disposition Clinical Impression: Congestive heart failure, Elevated troponin, Acute bronchospasm, Elevated d- dimer, Elevated brain natriuretic peptide (BNP) level Disposition: ADMITTED IP TO THIS HOSP Condition: Fair Referrals: Francisco Hernandez MD [Primary Care Provider] - 1-2 days Time of Disposition: 22:38 Decision Date: 03/26/24 Decision Time: 22:38
[2024-03-26 20:04] LABS: Basophils % (A) 1 %; Eosinophils # (A) 0.2 k/uL (0-0.7); Eosinophils % (A) 3 %; HCT 44.8 % (34.0-46.0); HGB 13.7 gm/dL (11.4-16.0); Hypochromasia Slight; Lymphocytes # (A) 1.6 k/uL (1.0-4.8); Lymphocytes % (A) 20 %; MCH 30.5 pg (25.0-35.0); MCHC 30.6 g/dL (31.0-37.0); MCV 99.8 fL (80.0-100.0); Macrocytosis Slight; Mean Platelet Volume 8.2; Monocytes # (A) 0.4 k/uL (0-1.0); Monocytes % (A) 6 %; Neutrophils # (A) 5.5 k/uL (1.3-7.7); Neutrophils % (A) 69 %; Platelet Count 222 k/uL (150-450); RBC 4.49 m/uL (3.80-5.40); RDW 14.5 % (11.5-15.5); WBC 7.9 k/uL (3.8-10.6)
--- NOTE | 2024-03-26 20:05 | XR ---
EXAMINATION TYPE: XR chest 2V DATE OF EXAM: 03/26/2024 7:49 PM CLINICAL INDICATION:Female, 63 years old with history of difficulty breathing; COMPARISON: Chest radiographs from 05/19/2023 TECHNIQUE: XR chest 2V Frontal and lateral views of the chest. FINDINGS: Lungs/Pleura: Bibasilar atelectasis. No evidence for pneumothorax, pleural effusion or focal consolid ation. Pulmonary vascularity: Pulmonary vascular congestion. Heart/mediastinum: Cardiomediastinal silhouette is enlarged and stable. Musculoskeletal: No acute osseous pathology. IMPRESSION: Cardiomegaly and mild pulmonary vascular congestion. Correlate with BNP for congestive heart failure.
[2024-03-26] MEDS: IPRATROPIUM-ALBUTEROL 3 ML NEB INHALATION STA (20:13)
[2024-03-26 20:21] LABS: ALT 29 U/L (4-34); African American GFR (CKD) >90 (>60 ml/min/1.73 sqM); Albumin 4.1 g/dL (3.5-5.0); Anion Gap 9 mmol/L; Blood Urea Nitrogen 16 mg/dL (7-17); Calcium 9.1 mg/dL (8.4-10.2); Carbon Dioxide 21 mmol/L (22-30); Chloride 110 mmol/L (98-107); Glucose 87 mg/dL (74-99); Non-African American GFR(CKD) >90 (>60 ml/min/1.73 sqM); Sodium 140 mmol/L (137-145); Total Bilirubin 1.3 mg/dL (0.2-1.3); Total Protein 7.1 g/dL (6.3-8.2)
[2024-03-26 20:22] LABS: Partial Thromboplastin Time 25.4 sec (22.0-30.0)
[2024-03-26 20:26] LABS: NT-Pro-B-Type Natriuretic Pept 22500 pg/mL
[2024-03-26 20:30] LABS: AST 36 U/L (14-36); Alkaline Phosphatase 150 U/L (38-126); Magnesium 2.1 mg/dL (1.6-2.3); Potassium 4.3 mmol/L (3.5-5.1)
[2024-03-26] MEDS: FUROSEMIDE 10 MG/ML 4 ML VIAL IV STA (20:53)
[2024-03-26] MEDS ORDERED: HYDROcodone/APAP 7.5-325MG 1 EACH TAB PO PRN (22:42)
[2024-03-26] MEDS ORDERED: IBUPROFEN 600 MG TAB PO PRN (22:42)
[2024-03-26] MEDS: NITROGLYCERIN OINT 1 INCH/GM PACKET TOPICAL STA (22:56)
[2024-03-26] MEDS: HEPARIN SOD,PORK IN 0.45% NACL 25,000 UNIT in 0.45% NACL 1 250ML.BAG IV SCH (23:26)
[2024-03-26] MEDS: HEPARIN SODIUM 1,000 UN/ML (10ML VL) IV ONE (23:27)
[2024-03-26] MEDS: NITROGLYCERIN OINT 1 INCH/GM PACKET TOPICAL SCH (23:31)
[2024-03-26] MEDS: FUROSEMIDE 10 MG/ML 4 ML VIAL IV SCH (23:31)
[2024-03-27] MEDS: IPRATROPIUM-ALBUTEROL 3 ML NEB INHALATION SCH ×2 (03:08→15:37)
[2024-03-27 04:03] LABS: INR 1.1 (<1.2); Partial Thromboplastin Time 38.5 sec (22.0-30.0); Prothrombin Time 11.6 sec (10.0-12.5)
[2024-03-27] MEDS: HEPARIN SODIUM 1,000 UN/ML (10ML VL) IV PRN (05:47)
[2024-03-27] MEDS ORDERED: IPRATROPIUM-ALBUTEROL 3 ML NEB INHALATION PRN (07:48)
[2024-03-27] MEDS: METOPROLOL SUCCINATE (ER) 100 MG TAB.ER.24H PO SCH (09:25)
[2024-03-27] MEDS: LISINOPRIL-HCTZ 10-12.5 MG 1 EACH TAB PO SCH (09:25)
[2024-03-27] MEDS: amLODIPine 10 MG TAB PO SCH (09:25)
[2024-03-27 10:53] LABS: Basophils # (A) 0.1 k/uL (0-0.2); Basophils % (A) 1 %; Eosinophils # (A) 0.2 k/uL (0-0.7); Eosinophils % (A) 2 %; HCT 43.9 % (34.0-46.0); HGB 14.4 gm/dL (11.4-16.0); Hypochromasia Marked; Lymphocytes # (A) 1.3 k/uL (1.0-4.8); Lymphocytes % (A) 15 %; MCHC 32.9 g/dL (31.0-37.0); MCV 97.4 fL (80.0-100.0); Mean Platelet Volume 14.3; Monocytes # (A) 0.5 k/uL (0-1.0); Monocytes % (A) 5 %; Neutrophils # (A) 6.7 k/uL (1.3-7.7); Neutrophils % (A) 75 %; Platelet Count 332 k/uL (150-450); Poikilocytosis Moderate; RDW 15.2 % (11.5-15.5); WBC 8.9 k/uL (3.8-10.6)
--- NOTE | 2024-03-27 10:57 | P.HPIM ---
History of Present Illness 63-year-old pleasant female with known history of COPD no known history of congestive heart failure came in with complaints of shortness of breath orthopnea. Found to be in CHF with pulm edema on the chest x-ray bilateral pleural effusions, elevated BNP of around 22,500. Patient dyspnea is exertional. Patient denies any chest pain EKG here showed some new nonspecific T wave abnormality in the anterolateral leads. Patient troponins are slightly elevated to 0.05-0.064 and 0.064. Patient was started on IV Lasix with improvement in her symptoms and good urine output patient continues to smoke, denies any history of coronary artery disease. Patient had an elevated NM D- dimer because of which ER obtain a CT of the chest to rule out pulmonary embolism other results are pending at this time. Pretest probably for PE is low. REVIEW OF SYSTEMS: CONSTITUTIONAL: No fever, no malaise, no fatigue. HEENT: No recent visual problems or hearing problems. Denied any sore throat. CARDIOVASCULAR: No chest pain, PND, no palpitations, no syncope. PULMONARY: , no hemoptysis. GASTROINTESTINAL: No diarrhea, no nausea, no vomiting, no abdominal pain. NEUROLOGICAL: No headaches, no weakness, no numbness. HEMATOLOGICAL: Denies any bleeding or petechiae. GENITOURINARY: Denies any burning micturition, frequency, or urgency. MUSCULOSKELETAL/RHEUMATOLOGICAL: Denies any joint pain, swelling, or any muscle pain. ENDOCRINE: Denies any polyuria or polydipsia. The rest of the 14-point review of systems is negative. PHYSICAL EXAMINATION: GENERAL: The patient is alert and oriented x3, not in any acute distress. Well developed, well nourished. HEENT: Pupils are round and equally reacting to light. EOMI. No scleral icterus. No conjunctival pallor. Normocephalic, atraumatic. No pharyngeal erythema. No thyromegaly. CARDIOVASCULAR: S1 and S2 present. No murmurs, rubs, or gallops. Patient does have elevated JVD PULMONARY: Bibasilar crackles. ABDOMEN: Soft, nontender, nondistended, normoactive bowel sounds. No palpable organomegaly. MUSCULOSKELETAL: No joint swelling or deformity. EXTREMITIES: No cyanosis, clubbing, or pedal edema. NEUROLOGICAL: Gross neurological examination did not reveal any focal deficits. SKIN: No rashes. Assessment and plan -Congestive heart failure unknown ejection fraction patient does not have any previous echocardiograms in the system unknown whether it systolic or diastolic dysfunction echocardiogram will be obtained patient will be continued on IV Lasix hydrochlorothiazide will be discontinued, increase lisinopril to 20 mg daily discontinue amlodipine. Monitor input and output electrolytes and kidney function. Troponin elevation: Can be secondary to congestive heart failure although type I non-ST elevation cannot be ruled out, cardiology will evaluate the patient echo cardiogram as mentioned above. Patient was started on IV heparin -Gastroesophageal flux disease -Hypertension -COPD without any acute exacerbation continues to smoke DVT prophylaxis: Patient is on IV heparin for possible non-ST elevation NM : Past Medical History Past Medical History: GERD/Reflux, Hypertension, Osteoarthritis (OA) Additional Past Medical History / Comment(s): DDD, chronic back pain, scoliosis History of Any Multi-Drug Resistant Organisms: None Reported Past Surgical History: Cholecystectomy, Joint Replacement Additional Past Surgical History / Comment(s): ORIF left ankle, exploratory laparotomy,martin hip replacement Past Anesthesia/Blood Transfusion Reactions: No Reported Reaction Past Psychological History: No Psychological Hx Reported Smoking Status: Current every day smoker Past Alcohol Use History: None Reported Past Drug Use History: None Reported - Past Family History Mother Family Medical History: No Reported History Father Family Medical History: No Reported History Medications and Allergies Home Medications Medication Instructions Recorded Confirmed Type amLODIPine [Norvasc] 10 mg PO DAILY 05/16/14 03/27/24 History Albuterol Inhaler [Ventolin Hfa 1 - 2 puff INHALATION RT-Q6H PRN 03/27/24 03/27/24 History Inhaler] Escitalopram [Lexapro] 10 mg PO DAILY 03/27/24 03/27/24 History Spironolactone [Aldactone] 50 mg PO DAILY 03/27/24 03/27/24 History Allergies Allergy/AdvReac Type Severity Reaction Status Date / Time pravastatin Allergy Unknown Panic Verified 03/27/24 10:42 attacks codeine Allergy Itching, Verified 03/27/24 10:42 rash sulfamethoxazole Allergy throat Verified 03/27/24 10:42 [From Bactrim] tight trimethoprim [From Bactrim] Allergy throat Verified 03/27/24 10:42 tight Physical Exam Vitals: Vital Signs Temp Pulse Pulse Resp BP BP Pulse Ox 03/27/24 07:57 94 19 03/27/24 07:56 98.4 F 94 19 127/66 03/27/24 03:16 88 03/27/24 03:08 87 03/27/24 03:00 78 18 146/95 97 03/27/24 00:00 85 20 163/103 97 03/26/24 22:00 89 20 156/126 97 03/26/24 20:55 87 20 177/113 98 03/26/24 20:26 85 03/26/24 20:13 84 03/26/24 20:00 84 18 148/108 96 03/26/24 19:37 81 18 178/94 90 L 03/26/24 18:39 97.5 F L 85 24 128/81 91 L Intake and Output 03/26/24 03/27/24 03/27/24 22:59 06:59 14:59 Intake Total 52.835 Output Total 750 700 Balance -750 -647.165 Intake: Intake, IV Titration 52.835 Amount Heparin Sod,Pork in 0.45% 52.835 NaCl 25,000 unit In 0.45 % NaCl 1 250ml.bag @ 12 UNITS/KG/HR 8.709 mls/hr IV .Q24H [facility] Rx#: [id number] Output: Urine 750 700 Female - External 750 700 Other: Voiding Method External Catheter Weight 72.575 kg Results CBC & Chem 7: 03/26/24 19:50 03/26/24 19:50 Labs: Abnormal Lab Results - Last 24 Hours (Table) 03/26/24 03/26/24 03/26/24 Range/Units 19:50 19:50 19:50 MCHC 30.6 L (31.0-37.0) g/dL APTT (22.0-30.0) sec D-Dimer 1.40 H (<0.60) mg/L FEU Chloride 110 H (98-107) mmol/L Carbon Dioxide 21 L (22-30) mmol/L Alkaline Phosphatase 150 H (38-126) U/L Troponin I (0.000-0.034) ng/mL 03/26/24 03/26/24 03/27/24 Range/Units 19:50 23:26 01:55 MCHC (31.0-37.0) g/dL APTT (22.0-30.0) sec D-Dimer (<0.60) mg/L FEU Chloride (98-107) mmol/L Carbon Dioxide (22-30) mmol/L Alkaline Phosphatase (38-126) U/L Troponin I 0.052 H* 0.064 H* 0.064 H* (0.000-0.034) ng/mL 03/27/24 Range/Units 03:03 MCHC (31.0-37.0) g/dL APTT 38.5 H (22.0-30.0) sec D-Dimer (<0.60) mg/L FEU Chloride (98-107) mmol/L Carbon Dioxide (22-30) mmol/L Alkaline Phosphatase (38-126) U/L Troponin I (0.000-0.034) ng/mL
[2024-03-27] MEDS ORDERED: ALBUTEROL NEBULIZED 2.5 MG/3 ML INHALATION PRN (10:58)
[2024-03-27 11:18] LABS: Large Platelets Present
[2024-03-27] MEDS: guaiFENesin SYRUP 100MG/5ML 200 MG/10 ML CUP PO PRN (11:20)
--- NOTE | 2024-03-27 11:27 | CT ---
EXAMINATION TYPE: CT chest angio for PE CT DLP: 250.7 mGycm, Automated exposure control for dose reduction was used. DATE OF EXAM: 03/27/2024 10:48 AM COMPARISON: 03/26/2024. CLINICAL INDICATION:Female, 63 years old with history of Elevated D- dimer; Elevated d-dimer, SANDY TECHNIQUE/CONTRAST: CTA scan of the thorax is performed with IV Contrast, patient injected with 100 mL of Isovue 370, MIP images are created and reviewed these are created on a separate workstation.. FINDINGS: Pulmonary Artery: There is no evidence for a filling defect within the pulmonary vasculature to sugge st acute pulmonary embolism. The pulmonary artery is of normal size. Lungs/Pleura: No evidence of focal consolidation or pneumothorax. Small bilateral pleural effusions. Intralobular septal thickening. Mild centrilobular and paraseptal emphysema. Airway: Large airways are patent. Heart: The heart is mildly enlarged for size with mild coronary artery calcifications. Vasculature: Mild atherosclerotic calcifications are present throughout the aorta and its branches. R eflux of contrast into the IVC. Mediastinum: No gross evidence of adenopathy. Musculoskeletal: No acute osseous abnormalities Soft Tissues/lymph nodes: Unremarkable. Lower neck: No significant findings. Upper Abdomen: No significant findings. IMPRESSION: 1. No evidence of pulmonary embolism. 2. Congestive heart failure with cardiomegaly, small bilateral pleural effusions and pulmonary vascul ar congestion.
[2024-03-27 12:27] LABS: African American GFR (CKD) 82 (>60 ml/min/1.73 sqM); Anion Gap 6 mmol/L; Blood Urea Nitrogen 15 mg/dL (7-17); Calcium 8.8 mg/dL (8.4-10.2); Carbon Dioxide 27 mmol/L (22-30); Chloride 105 mmol/L (98-107); Glucose 94 mg/dL (74-99); Non-African American GFR(CKD) 71 (>60 ml/min/1.73 sqM); Sodium 138 mmol/L (137-145)
[2024-03-27 12:29] LABS: Potassium 4.7 mmol/L (3.5-5.1)
[2024-03-27] MEDS: SPIRONOLACTONE 25 MG TAB PO SCH (13:09)
--- NOTE | 2024-03-27 14:28 | P.CRDCN ---
History of Present Illness Consult date: 03/27/24 History of present illness: HISTORY OF PRESENTING ILLNESS Patient is a 63-year-old -Citizen Of [place] female with past medical history of multiple sclerosis, TIA COPD, smoker 1 pack/day. She reports that she had a heart cath in the past but no interventions were done for her. She presented to the hospital because of worsening shortness of breath and increased cough with mild sputum production. She denies any fevers or chills. She denies any chest pressure. She does report on and off symptoms of palpitation. On admission her ECG shows sinus rhythm with PVC and nonspecific ST changes in lateral leads. Chest x-ray showed pulmonary congestion. Her CTA chest did not show any PE but did show bilateral pulmonary congestion along with small bilateral pleural effu beena. BP 178/94 on admission. Repeat 146/95 REVIEW OF SYSTEMS 14 point review of system is negative except what is mentioned above in HPI. PHYSICAL EXAMINATION Vital signs reviewed. Head: Normocephalic. Eyes: Sclerae nonicteric. Neck: Brisk carotid upstroke, no jugular venous distention. Lungs: Reduced air entry at lung bases. Mild crackles audible Heart: Regular rate and rhythm, S1-S2, no S3, no murmur or rub. Abdomen: Soft nontender, positive bowel sounds. Extremities: No edema, intact distal pulses. Neuro: Alert, oritented, no focal deficits. Detailed neuro exam was not performed. ASSESSMENT Acute CHF exacerbation Mild elevation of troponins flat pattern, likely due to CHF exacerbation. Tobacco smoker History of multiple sclerosis Obesity Essential hypertension Prediabetes PLAN Start aspirin, Lipitor 40 mg Lasix 40 mg IV twice daily. Aldactone 25 mg daily Losartan 25 mg daily Metoprolol succinate 50 mg daily. Check HbA1c, echocardiogram Further recommendations to follow Zachery Mathew MD, FACC, RPVI Thank you for allowing [facility] to participate in this patient's care. Feel free to reach out in case of any followup questions. Past Medical History Past Medical History: GERD/Reflux, Hypertension, Osteoarthritis (OA) Additional Past Medical History / Comment(s): DDD, chronic back pain, scoliosis History of Any Multi-Drug Resistant Organisms: None Reported Past Surgical History: Cholecystectomy, Joint Replacement Additional Past Surgical History / Comment(s): ORIF left ankle, exploratory laparotomy,martin hip replacement Past Anesthesia/Blood Transfusion Reactions: No Reported Reaction Past Psychological History: No Psychological Hx Reported Smoking Status: Current every day smoker Past Alcohol Use History: None Reported Additional Past Alcohol Use History / Comment(s): SMOKES PPD. SMOKING SINCE 15 YEARS OLD Past Drug Use History: None Reported - Past Family History Mother History Unknown: Yes Family Medical History: No Reported History Father History Unknown: Yes Family Medical History: No Reported History Medications and Allergies Home Medications Medication Instructions Recorded Confirmed Type amLODIPine [Norvasc] 10 mg PO DAILY 05/16/14 03/27/24 History Albuterol Inhaler [Ventolin Hfa 1 - 2 puff INHALATION RT-Q6H PRN 03/27/24 03/27/24 History Inhaler] Escitalopram [Lexapro] 10 mg PO DAILY 03/27/24 03/27/24 History Spironolactone [Aldactone] 50 mg PO DAILY 03/27/24 03/27/24 History Allergies Allergy/AdvReac Type Severity Reaction Status Date / Time pravastatin Allergy Unknown Panic Verified 03/27/24 10:42 attacks codeine Allergy Itching, Verified 03/27/24 10:42 rash sulfamethoxazole Allergy throat Verified 03/27/24 10:42 [From Bactrim] tight trimethoprim [From Bactrim] Allergy throat Verified 03/27/24 10:42 tight Physical Exam Vitals: Vital Signs Temp Pulse Pulse Resp BP BP Pulse Ox 03/27/24 13:11 98.0 F 74 18 107/42 03/27/24 11:18 98.0 F 74 18 03/27/24 07:57 94 19 03/27/24 07:56 98.4 F 94 19 127/66 03/27/24 03:16 88 03/27/24 03:08 87 03/27/24 03:00 78 18 146/95 97 03/27/24 00:00 85 20 163/103 97 03/26/24 22:00 89 20 156/126 97 03/26/24 20:55 87 20 177/113 98 03/26/24 20:26 85 03/26/24 20:13 84 03/26/24 20:00 84 18 148/108 96 03/26/24 19:37 81 18 178/94 90 L 03/26/24 18:39 97.5 F L 85 24 128/81 91 L Intake and Output 03/26/24 03/27/24 03/27/24 22:59 06:59 14:59 Intake Total 52.835 76.885 Output Total 750 700 Balance -750 -647.165 76.885 Intake: Intake, IV Titration 52.835 76.885 Amount Heparin Sod,Pork in 0.45% 52.835 76.885 NaCl 25,000 unit In 0.45 % NaCl 1 250ml.bag @ 12 UNITS/KG/HR 8.709 mls/hr IV .Q24H [facility] Rx#: [id number] Output: Urine 750 700 Female - External 750 700 Other: Voiding Method External Catheter Weight 72.575 kg 72.575 kg Results 03/27/24 10:27 03/27/24 11:56 Cardiac Enzymes 03/26/24 03/26/24 03/26/24 Range/Units 19:50 19:50 23:26 AST 36 (14-36) U/L Troponin I 0.052 H* 0.064 H* (0.000-0.034) ng/mL 03/27/24 Range/Units 01:55 AST (14-36) U/L Troponin I 0.064 H* (0.000-0.034) ng/mL Coagulation 03/26/24 03/27/24 03/27/24 Range/Units 19:50 03:03 11:56 PT 11.0 11.6 (10.0-12.5) sec APTT 25.4 38.5 H 31.1 H (22.0-30.0) sec CBC 03/26/24 03/27/24 Range/Units 19:50 10:27 WBC 7.9 8.9 (3.8-10.6) k/uL RBC 4.49 4.50 (3.80-5.40) m/uL Hgb 13.7 14.4 (11.4-16.0) gm/dL Hct 44.8 43.9 (34.0-46.0) % Plt Count 222 332 (150-450) k/uL Comprehensive Metabolic Panel 03/26/24 03/27/24 Range/Units 19:50 11:56 Sodium 140 138 (137-145) mmol/L Potassium 4.3 4.7 (3.5-5.1) mmol/L Chloride 110 H 105 (98-107) mmol/L Carbon Dioxide 21 L 27 (22-30) mmol/L BUN 16 15 (7-17) mg/dL Creatinine 0.62 0.87 (0.52-1.04) mg/dL Glucose 87 94 (74-99) mg/dL Calcium 9.1 8.8 (8.4-10.2) mg/dL AST 36 (14-36) U/L ALT 29 (4-34) U/L Alkaline Phosphatase 150 H (38-126) U/L Total Protein 7.1 (6.3-8.2) g/dL Albumin 4.1 (3.5-5.0) g/dL Current Medications Generic Name Dose Route Start Last Admin Trade Name Freq PRN Reason Stop Dose Admin Hydrocodone Bitart/Acetaminophen 1 each 03/26/24 22:42 Hydrocodone/Apap 7.5-325mg 1 Each Tab PO DAILY PRN Pain Albuterol Sulfate 2.5 mg 03/27/24 10:58 Albuterol Nebulized 2.5 Mg/3 Ml INHALATION RT-Q6H PRN Shortness Of Breath Albuterol/Ipratropium 3 ml 03/27/24 07:48 Ipratropium-Albuterol 3 Ml Neb INHALATION RT-TID PRN Shortness Of Breath Or Wheezing Aspirin 81 mg 03/27/24 14:30 Aspirin 81 Mg PO DAILY [facility] Atorvastatin Calcium 40 mg 03/27/24 21:00 Atorvastatin 40 Mg Tab PO HS [facility] Diphenhydramine HCl 50 mg 03/27/24 21:00 Diphenhydramine 25 Mg Cap PO HS [facility] Escitalopram Oxalate 10 mg 03/28/24 09:00 Escitalopram 10 Mg Tab PO DAILY [facility] Furosemide 40 mg 03/27/24 14:30 Furosemide 10 Mg/Ml 4 Ml Vial IV Q12HR [facility] Guaifenesin 200 mg 03/27/24 09:26 03/27/24 11:20 Guaifenesin Syrup 100mg/5ml 200 Mg/10 Ml Cup PO 200 mg Q6HR PRN Administration Cough Heparin Sodium (Porcine) 0 unit 03/26/24 22:41 03/27/24 05:47 Heparin Sodium 1,000 Un/Ml (10ml Vl) IV 1,814 unit PER PROTOCOL PRN Administration Low PTT Protocol Heparin Sodium/Sodium Chloride 250 mls @ 8.709 mls/hr 03/26/24 22:45 03/27/24 13:04 25,000 unit/ Sodium Chloride IV 17 units/kg/hr .Q24H [facility] 12.338 mls/hr Titration Protocol 12 UNITS/KG/HR Losartan Potassium 25 mg 03/27/24 14:30 Losartan 25 Mg Tab PO DAILY [facility] Metoprolol Succinate 50 mg 03/28/24 09:00 Metoprolol Succinate (Er) 50 Mg Tab.Er.24h PO DAILY [facility] Nitroglycerin 0.5 inch 03/27/24 00:00 03/27/24 11:20 Nitroglycerin Oint 1 Inch/Gm Packet TOPICAL 03/28/24 00:01 0.5 inch Q6HR [facility] Administration Spironolactone 25 mg 03/28/24 09:00 Spironolactone 25 Mg Tab PO DAILY [facility] Intake and Output 03/26/24 03/27/24 03/27/24 22:59 06:59 14:59 Intake Total 52.835 76.885 Output Total 750 700 Balance -750 -647.165 76.885 Intake: Intake, IV Titration 52.835 76.885 Amount Heparin Sod,Pork in 0.45% 52.835 76.885 NaCl 25,000 unit In 0.45 % NaCl 1 250ml.bag @ 12 UNITS/KG/HR 8.709 mls/hr IV .Q24H [facility] Rx#: [id number] Output: Urine 750 700 Female - External 750 700 Other: Voiding Method External Catheter Weight 72.575 kg 72.575 kg Patient Weight 03/28/24 06:59 Weight 72.575 kg 03/27/24 10:27 03/27/24 11:56
--- NOTE | 2024-03-27 14:48 | P.CRDCN ---
History of Present Illness Consult date: 03/27/24 History of present illness: HISTORY OF PRESENTING ILLNESS Patient is a 63-year-old female with no prior cardiovascular history. She does report that she smokes approximately 1 pack a day. She denies any prior history of strokes or diabetes. She does report history of hypertension. This time she presented to the hospital because of increased worsening shortness of breath along with cough. She denies any fever or chills. Her admission ECG shows sinus rhythm with nonspecific ST changes in inferolateral leads. Labs showed a troponin elevation of 0.06 with a flat pattern. Her BNP was elevated at 22,[address] chest shows diffuse bilateral pulmonary congestion along with small bilateral pleural effusion. BP 178/94 on admission. Repeat 146/95 REVIEW OF SYSTEMS 14 point review of system is negative except what is mentioned above in HPI. PHYSICAL EXAMINATION Vital signs reviewed. Head: Normocephalic. Eyes: Sclerae nonicteric. Neck: Brisk carotid upstroke, elevated jugular venous distention. Lungs: Reduced air entry bilateral lung chu along with significant wheezing in bilateral lung chu. Heart: Regular rate and rhythm, S1-S2, no S3, no murmur or rub. Abdomen: Soft nontender, positive bowel sounds. Extremities: 2+ pitting edema in bilateral lower extremity, intact distal pulses. Neuro: Alert, oritented, no focal deficits. Detailed neuro exam was not performed. ASSESSMENT Acute CHF exacerbation Acute severe COPD exacerbation Acute hypoxic respiratory failure Mild elevation of troponins flat pattern, likely due to CHF , and hypoxia from COPD exacerbation. Tobacco smoker History of multiple sclerosis Obesity Essential hypertension Prediabetes PLAN Start aspirin, Lipitor 40 mg Lasix 40 mg IV twice daily. Aldactone 25 mg daily Losartan 25 mg daily Metoprolol succinate 50 mg daily. Continue IV heparin drip for next 24 hours. Discontinue tomorrow Check HbA1c, echocardiogram, procalcitonin. Start breathing treatment DuoNeb, Pulmicort, 1 dose of steroid. Consider consulting pulmonary team Further recommendations to follow Zachery Mathew MD, FACC, RPVI Thank you for allowing [facility] to participate in this patient's care. Feel free to reach out in case of any followup questions. Past Medical History Past Medical History: GERD/Reflux, Hypertension, Osteoarthritis (OA) Additional Past Medical History / Comment(s): DDD, chronic back pain, scoliosis History of Any Multi-Drug Resistant Organisms: None Reported Past Surgical History: Cholecystectomy, Joint Replacement Additional Past Surgical History / Comment(s): ORIF left ankle, exploratory l aparotomy,martin hip replacement Past Anesthesia/Blood Transfusion Reactions: No Reported Reaction Past Psychological History: No Psychological Hx Reported Smoking Status: Current every day smoker Past Alcohol Use History: None Reported Additional Past Alcohol Use History / Comment(s): SMOKES PPD. SMOKING SINCE 15 YEARS OLD Past Drug Use History: None Reported - Past Family History Mother History Unknown: Yes Family Medical History: No Reported History Father History Unknown: Yes Family Medical History: No Reported History Medications and Allergies Home Medications Medication Instructions Recorded Confirmed Type amLODIPine [Norvasc] 10 mg PO DAILY 05/16/14 03/27/24 History Albuterol Inhaler [Ventolin Hfa 1 - 2 puff INHALATION RT-Q6H PRN 03/27/24 03/27/24 History Inhaler] Escitalopram [Lexapro] 10 mg PO DAILY 03/27/24 03/27/24 History Spironolactone [Aldactone] 50 mg PO DAILY 03/27/24 03/27/24 History Allergies Allergy/AdvReac Type Severity Reaction Status Date / Time pravastatin Allergy Unknown Panic Verified 03/27/24 10:42 attacks codeine Allergy Itching, Verified 03/27/24 10:42 rash sulfamethoxazole Allergy throat Verified 03/27/24 10:42 [From Bactrim] tight trimethoprim [From Bactrim] Allergy throat Verified 03/27/24 10:42 tight Physical Exam Vitals: Vital Signs Temp Pulse Pulse Resp BP BP Pulse Ox 03/27/24 13:11 98.0 F 74 18 107/42 03/27/24 11:18 98.0 F 74 18 03/27/24 07:57 94 19 03/27/24 07:56 98.4 F 94 19 127/66 03/27/24 03:16 88 03/27/24 03:08 87 03/27/24 03:00 78 18 146/95 97 03/27/24 00:00 85 20 163/103 97 03/26/24 22:00 89 20 156/126 97 03/26/24 20:55 87 20 177/113 98 03/26/24 20:26 85 03/26/24 20:13 84 03/26/24 20:00 84 18 148/108 96 03/26/24 19:37 81 18 178/94 90 L 03/26/24 18:39 97.5 F L 85 24 128/81 91 L Intake and Output 03/26/24 03/27/24 03/27/24 22:59 06:59 14:59 Intake Total 52.835 76.885 Output Total 750 700 Balance -750 -647.165 76.885 Intake: Intake, IV Titration 52.835 76.885 Amount Heparin Sod,Pork in 0.45% 52.835 76.885 NaCl 25,000 unit In 0.45 % NaCl 1 250ml.bag @ 12 UNITS/KG/HR 8.709 mls/hr IV .Q24H [facility] Rx#: [id number] Output: Urine 750 700 Female - External 750 700 Other: Voiding Method Bedside Commode Weight 72.575 kg 72.575 kg Results 03/27/24 10:27 03/27/24 11:56 Cardiac Enzymes 03/26/24 03/26/24 03/26/24 Range/Units 19:50 19:50 23:26 AST 36 (14-36) U/L Troponin I 0.052 H* 0.064 H* (0.000-0.034) ng/mL 03/27/24 Range/Units 01:55 AST (14-36) U/L Troponin I 0.064 H* (0.000-0.034) ng/mL Coagulation 03/26/24 03/27/24 03/27/24 Range/Units 19:50 03:03 11:56 PT 11.0 11.6 (10.0-12.5) sec APTT 25.4 38.5 H 31.1 H (22.0-30.0) sec CBC 03/26/24 03/27/24 Range/Units 19:50 10:27 WBC 7.9 8.9 (3.8-10.6) k/uL RBC 4.49 4.50 (3.80-5.40) m/uL Hgb 13.7 14.4 (11.4-16.0) gm/dL Hct 44.8 43.9 (34.0-46.0) % Plt Count 222 332 (150-450) k/uL Comprehensive Metabolic Panel 03/26/24 03/27/24 Range/Units 19:50 11:56 Sodium 140 138 (137-145) mmol/L Potassium 4.3 4.7 (3.5-5.1) mmol/L Chloride 110 H 105 (98-107) mmol/L Carbon Dioxide 21 L 27 (22-30) mmol/L BUN 16 15 (7-17) mg/dL Creatinine 0.62 0.87 (0.52-1.04) mg/dL Glucose 87 94 (74-99) mg/dL Calcium 9.1 8.8 (8.4-10.2) mg/dL AST 36 (14-36) U/L ALT 29 (4-34) U/L Alkaline Phosphatase 150 H (38-126) U/L Total Protein 7.1 (6.3-8.2) g/dL Albumin 4.1 (3.5-5.0) g/dL Current Medications Generic Name Dose Route Start Last Admin Trade Name Freq PRN Reason Stop Dose Admin Hydrocodone Bitart/Acetaminophen 1 each 03/26/24 22:42 Hydrocodone/Apap 7.5-325mg 1 Each Tab PO DAILY PRN Pain Albuterol Sulfate 2.5 mg 03/27/24 10:58 Albuterol Nebulized 2.5 Mg/3 Ml INHALATION RT-Q6H PRN Shortness Of Breath Albuterol/Ipratropium 3 ml 03/27/24 14:45 Ipratropium-Albuterol 3 Ml Neb INHALATION RT-TID [facility] Aspirin 81 mg 03/27/24 14:30 Aspirin 81 Mg PO DAILY [facility] Atorvastatin Calcium 40 mg 03/27/24 21:00 Atorvastatin 40 Mg Tab PO HS [facility] Budesonide 0.5 mg 03/27/24 20:00 Budesonide 0.5 Mg/2 Ml Nebu INHALATION RT-BID [facility] Diphenhydramine HCl 50 mg 03/27/24 21:00 Diphenhydramine 25 Mg Cap PO HS [facility] Escitalopram Oxalate 10 mg 03/28/24 09:00 Escitalopram 10 Mg Tab PO DAILY [facility] Furosemide 40 mg 03/27/24 14:30 Furosemide 10 Mg/Ml 4 Ml Vial IV Q12HR [facility] Guaifenesin 200 mg 03/27/24 09:26 03/27/24 11:20 Guaifenesin Syrup 100mg/5ml 200 Mg/10 Ml Cup PO 200 mg Q6HR PRN Administration Cough Heparin Sodium (Porcine) 0 unit 03/26/24 22:41 03/27/24 05:47 Heparin Sodium 1,000 Un/Ml (10ml Vl) IV 1,814 unit PER PROTOCOL PRN Administration Low PTT Protocol Heparin Sodium/Sodium Chloride 250 mls @ 8.709 mls/hr 03/26/24 22:45 03/27/24 13:04 25,000 unit/ Sodium Chloride IV 17 units/kg/hr .Q24H [facility] 12.338 mls/hr Titration Protocol 12 UNITS/KG/HR Losartan Potassium 25 mg 03/27/24 14:30 Losartan 25 Mg Tab PO DAILY [facility] Metoprolol Succinate 50 mg 03/28/24 09:00 Metoprolol Succinate (Er) 50 Mg Tab.Er.24h PO DAILY [facility] Nitroglycerin 0.5 inch 03/27/24 00:00 03/27/24 11:20 Nitroglycerin Oint 1 Inch/Gm Packet TOPICAL 03/28/24 00:01 0.5 inch Q6HR [facility] Administration Spironolactone 25 mg 03/28/24 09:00 Spironolactone 25 Mg Tab PO DAILY [facility] Intake and Output 03/26/24 03/27/24 03/27/24 22:59 06:59 14:59 Intake Total 52.835 76.885 Output Total 750 700 Balance -750 -647.165 76.885 Intake: Intake, IV Titration 52.835 76.885 Amount Heparin Sod,Pork in 0.45% 52.835 76.885 NaCl 25,000 unit In 0.45 % NaCl 1 250ml.bag @ 12 UNITS/KG/HR 8.709 mls/hr IV .Q24H [facility] Rx#: [id number] Output: Urine 750 700 Female - External 750 700 Other: Voiding Method Bedside Commode Weight 72.575 kg 72.575 kg Patient Weight 03/28/24 06:59 Weight 72.575 kg 03/27/24 10:27 03/27/24 11:56
[2024-03-27] MEDS: methylPREDNISolone SOD SUCCI 40 MG/ML 1 ML VIAL IV STA (15:12)
[2024-03-27] MEDS: ASPIRIN 81 MG PO SCH (15:12)
[2024-03-27] MEDS: LOSARTAN 25 MG TAB PO SCH (15:13)
[2024-03-27] MEDS: FUROSEMIDE 10 MG/ML 4 ML VIAL IV SCH (15:13)
[2024-03-27] MEDS: BUDESONIDE 0.5 MG/2 ML NEBU INHALATION SCH (20:12)
[2024-03-27] MEDS: ATORVASTATIN 40 MG TAB PO SCH (21:00)
[2024-03-28] MEDS: diphenhydrAMINE 25 MG CAP PO SCH (01:00)
[2024-03-28 08:20] LABS: African American GFR (CKD) 74 (>60 ml/min/1.73 sqM); Anion Gap 7 mmol/L; Blood Urea Nitrogen 26 mg/dL (7-17); Carbon Dioxide 25 mmol/L (22-30); Chloride 106 mmol/L (98-107); Glucose 98 mg/dL (74-99); Non-African American GFR(CKD) 64 (>60 ml/min/1.73 sqM); Potassium 4.1 mmol/L (3.5-5.1); Sodium 138 mmol/L (137-145)
[2024-03-28] MEDS ORDERED: lisinopriL 20 MG TAB PO SCH (09:00)
[2024-03-28] MEDS: METOPROLOL SUCCINATE (ER) 50 MG TAB.ER.24H PO SCH (09:20)
[2024-03-28] MEDS: SPIRONOLACTONE 25 MG TAB PO SCH (09:20)
[2024-03-28] MEDS: ESCITALOPRAM 10 MG TAB PO SCH (09:20)
--- NOTE | 2024-03-28 13:03 | CA ---
Transthoracic Echo Report Name: Pamela Castro Age: 63 Gender: F : 1960 Exam Date: 03/28/2024 11:33 Exam Location: [facility] Ht (in): 63 Wt (lb): 160 Ordering Physician: Zachery Mathew MD ([email or web address]) Attending/Referring Phys: Pattern Carrier Eufemia Resendez RDCS Procedure CPT: Indications: chf Cardiac Hx: Technical Quality: Good Contrast 1: Total Dose (mL): Contrast 2: Total Dose (mL): MEASUREMENTS (Male / Female) Normal Values 2D ECHO LV Diastolic Diameter PLAX 5.6 cm 4.2 - 5.9 / 3.9 - 5.3 cm LV Systolic Diameter PLAX 5.0 cm IVS Diastolic Thickness 1.3 cm 0.6 - 1.0 / 0.6 - 0.9 cm LVPW Diastolic Thickness 1.3 cm 0.6 - 1.0 / 0.6 - 0.9 cm LV Relative Wall Thickness 0.5 RV Internal Dim ED PLAX 2.8 cm LA Systolic Diameter LX 4.1 cm 3.0 - 4.0 / 2.7 - 3.8 cm LV Diastolic Volume MOD BP 147.0 cm??? 67 - 155 / 56 - 104 cm??? LV Systolic Volume MOD BP 97.8 cm??? 22 - 58 / 19 - 49 cm??? LV Ejection Fraction MOD BP 33.5 % >= 55 % LV Cardiac Index MOD BP 1488.1 cm???/min???m??? LV Diastolic Volume MOD 4C 144.6 cm??? LV Systolic Volume MOD 4C 107.5 cm??? LV Ejection Fraction MOD 4C 25.6 % LV Cardiac Index MOD 4C 1121.6 cm???/min???m??? LV Diastolic Length 4C 8.2 cm LV Systolic Length 4C 7.5 cm LV Diastolic Volume MOD 2C 147.6 cm??? LV Systolic Volume MOD 2C 88.2 cm??? LV Ejection Fraction MOD 2C 40.3 % LV Cardiac Index MOD 2C 1798.5 cm???/min???m??? LV Diastolic Length 2C 8.1 cm LV Systolic Length 2C 7.6 cm DOPPLER MV E' Velocity 4.5 cm/s FINDINGS Left Ventricle Left ventricular ejection fraction is estimated at 25-30%. Moderately increased septal wall thickness. Mildly increased posterior wall thickness. Mildly increased left ventricular diastolic diameter. Severely increased left ventricular diastolic volume. Severely increased left ventricular systolic volume. Severely reduced global left ventricular systolic function. Right Ventricle Mild right ventricular dilatation. Right ventricular systolic pressure within normal limits. Right Atrium Moderate right atrial dilatation. Left Atrium Severe left atrial dilatation. Mitral Valve Structurally normal mitral valve. Moderate mitral regurgitation. Aortic Valve Trileaflet aortic valve. No aortic valve stenosis or regurgitation. Tricuspid Valve Structurally normal tricuspid valve. Trace to mild tricuspid regurgitation. Pulmonic Valve Structurally normal pulmonic valve. Trace pulmonic regurgitation. Pericardium No pericardial or pleural effusion. Aorta Normal size aortic root and proximal ascending aorta. CONCLUSIONS Severe LV systolic dysfunction with EF between 25 to 30% Moderate mitral regurgitation Normal pulmonary artery systolic pressure Previewed by: Dr. David Shankar MD (Electronically Signed) Final Date: 28 March 2024 13:02
--- NOTE | 2024-03-28 13:56 | P.PN ---
Subjective Progress Note Date: 03/28/24 HISTORY OF PRESENTING ILLNESS Patient is a 63-year-old female with no prior cardiovascular history. She does report that she smokes approximately 1 pack a day. She denies any prior history of strokes or diabetes. She does report history of hypertension. This time she presented to the hospital because of increased worsening shortness of breath along with cough. She denies any fever or chills. Her admission ECG shows sinus rhythm with nonspecific ST changes in inferolateral leads. Labs showed a troponin elevation of 0.06 with a flat pattern. Her BNP was elevated at 22,[address] chest shows diffuse bilateral pulmonary congestion along with small bilateral pleural effusion. BP 178/94 on admission. Repeat 146/95 03/28 Patient states that his breathing is better today. He is on IV Lasix 40 mg every 12 hours. Blood pressure 82/52, heart rate 62, pulse ox 92% on room air. Repeat blood work reveals sodium 138, potassium 4.1, creatinine 0.94. BUN 26. A1c 5.7 echocardiogram reveals EF of 25 to 30%, moderate mitral regurgitation, normal pulmonary artery systolic pressure. Heparin drip was discontinued yesterday. Patient is maintained on IV Lasix 40 mg every 12 hours PHYSICAL EXAMINATION Vital signs reviewed. Head: Normocephalic. Eyes: Sclerae nonicteric. Neck: Brisk carotid upstroke, elevated jugular venous distention. Lungs: Reduced air entry bilateral lung chu along with significant wheezing in bilateral lung chu. Heart: Regular rate and rhythm, S1-S2, no S3, no murmur or rub. Abdomen: Soft nontender, positive bowel sounds. Extremities: 2+ pitting edema in bilateral lower extremity, intact distal pulses. Neuro: Alert, oritented, no focal deficits. Detailed neuro exam was not performed. ASSESSMENT Acute systolic heart failure exacerbation Acute severe COPD exacerbation Acute hypoxic respiratory failure Mild elevation of troponins flat pattern, likely due to CHF , and hypoxia from COPD exacerbation. New cardiomyopathy of unclear etiology Tobacco smoker History of multiple sclerosis Obesity Essential hypertension Prediabetes PLAN Continue aspirin, Lipitor 40 mg Lasix 40 mg IV twice daily for another 24 hours Continue Aldactone 25 mg daily Losartan decreased to 12.5 mg daily Metoprolol succinate 50 mg daily. IV heparin drip discontinued Patient may require cardiac catheterization to evaluate cardiomyopathy. Further recommendations to follow Nurse practitioner note has been reviewed, I agree with documented findings and plan of care. Patient was seen and examined. Objective - Vital Signs Vital signs: Vital Signs Temp 98.1 F 03/28/24 08:00 Pulse 110 H 03/28/24 09:17 Resp 18 03/28/24 09:17 BP 93/58 03/28/24 08:00 Pulse Ox 95 03/28/24 08:00 FiO2 Intake & Output 03/27/24 03/28/24 03/28/24 18:59 06:59 18:59 Intake Total 76.885 460.28 118 Output Total 1100 Balance -1023.115 460.28 118 Weight 72.575 kg 62.3 kg Intake: Intake, IV Titration 76.885 120.28 Amount Heparin Sod,Pork in 0.45% 76.885 120.28 NaCl 25,000 unit In 0.45 % NaCl 1 250ml.bag @ 12 UNITS/KG/HR 8.709 mls/hr IV .Q24H [facility] Rx#: [id number] Oral 340 118 Output: Urine 1100 Other: Voiding Method Bedside Commode Bedside Commode # Voids 2 1 - Labs CBC & Chem 7: 03/27/24 10:27 03/28/24 06:52 Labs: Abnormal Lab Results - Last 24 Hours (Table) 03/27/24 03/27/24 03/28/24 Range/Units 11:56 19:03 06:52 APTT 31.1 H 45.5 H (22.0-30.0) sec BUN 26 H (7-17) mg/dL 03/28/24 Range/Units 06:52 APTT 60.8 H (22.0-30.0) sec BUN (7-17) mg/dL
[2024-03-28 14:02] VITALS: BMI 24.3
--- NOTE | 2024-03-28 18:58 | P.PN ---
Subjective Progress Note Date: 03/28/24 63-year-old pleasant female with known history of COPD no known history of congestive heart failure came in with complaints of shortness of breath orthopnea. Found to be in CHF with pulm edema on the chest x-ray bilateral pleural effusions, elevated BNP of around 22,500. Patient dyspnea is exertional. Patient denies any chest pain EKG here showed some new nonspecific T wave abnormality in the anterolateral leads. Patient troponins are slightly elevated to 0.05-0.064 and 0.064. Patient was started on IV Lasix with improvement in her symptoms and good urine output patient continues to smoke, denies any history of coronary artery disease. Patient had an elevated ID D- dimer because of which ER obtain a CT of the chest to rule out pulmonary embolism other results are pending at this time. Pretest probably for PE is low. 03/28/2024 Patient is evaluated today in follow up on the medical floor. Patient remains on IV lasix 40 mg Q12. Has improvement in her shortness of breath. Patient has been weaned to room air with oxygen saturations of 90% Blood pressure on the lower side. Losartan has been decreased to 12.5 mg daily. Cardiology following. Echocardiogram comes back with Severe LV systolic dysfunction of 25-30% with moderate MR, normal pulmonary artery systolic pressure. There is moderate mitral regurgitation. Blood work reveals sodium of 138, potassium of 4.1, BUN 26, creatinine 0.94. Review of Systems Constitutional: Denied any fatigue denied any fever. Cardio vascular: denied any chest pain, palpitations Gastrointestinal: denied any nausea, vomiting, diarrhea Pulmonary: Denied any shortness of breath cough Neurologic denied any new focal deficits All inpatient medications were reviewed and appropriate changes in these medications as dictated in the interval history and assessment and plan PHYSICAL EXAMINATION: GENERAL: The patient is alert and oriented x3, not in any acute distress. Well developed, well nourished. HEENT: Pupils are round and equally reacting to light. EOMI. No scleral icterus. No conjunctival pallor. Normocephalic, atraumatic. No pharyngeal erythema. No thyromegaly. CARDIOVASCULAR: S1 and S2 present. No murmurs, rubs, or gallops. PULMONARY: Chest is clear to auscultation, no wheezing or crackles. ABDOMEN: Soft, nontender, nondistended, normoactive bowel sounds. No palpable organomegaly. MUSCULOSKELETAL: No joint swelling or deformity. EXTREMITIES: No cyanosis, clubbing. Mild non pitting edema. NEUROLOGICAL: Gross neurological examination did not reveal any focal deficits. SKIN: No rashes. Assessment and plan -Acute systolic heart failure with ejection fracture of 25-30% -New cardiomyopathy unknown etiology at this time patient needs further work up -Troponin elevation due to congestive heart failure; pattern not suggestive of ACS -Acute hypoxemic respiratory failure due to CHF and COPD. Has improved with IV lasix and patient weaned to room air. -Gastroesophageal flux disease -Hypertension -Hx of MS -Hypertension losartan has been decreased and hydrochlorothiazide has been discontinued -COPD without any acute exacerbation -Chronic daily nicotine use DVT prophylaxis: Patient is on IV heparin for possible non-ST elevation ID Plan Patient continues on IV lasix 40 mg Q12 hour and strict intake and output monit oring, monitor renal function Cardiology has decreased the dose of losartan Continues on aldactone and metoprolol. IV heparin has been discontinued Cardiology recommending possible cardiac catheterization BMP in the AM PT and OT consultation The impression and plan of care has been dictated by Joelle Vernon, Nurse Practitioner as directed. Dr. Ludin MD I have performed a history and physical examination and medical decision making of this patient, discussed the same with the dictator, and agree with the dictators assessment and plan as written, documented as a scribe. Based on total visit time, I have performed more than 50% of this visit. Objective - Vital Signs Vital signs: Vital Signs Temp 98.1 F 03/28/24 08:00 Pulse 62 03/28/24 12:00 Resp 18 03/28/24 09:17 BP 82/52 03/28/24 12:00 Pulse Ox 92 L 03/28/24 12:00 FiO2 Intake & Output 03/27/24 03/28/24 03/28/24 18:59 06:59 18:59 Intake Total 76.885 460.28 474 Output Total 1100 Balance -1023.115 460.28 474 Weight 72.575 kg 62.3 kg 62.3 kg Intake: Intake, IV Titration 76.885 120.28 Amount Heparin Sod,Pork in 0.45% 76.885 120.28 NaCl 25,000 unit In 0.45 % NaCl 1 250ml.bag @ 12 UNITS/KG/HR 8.709 mls/hr IV .Q24H [facility] Rx#: [id number] Oral 340 474 Output: Urine 1100 Other: Voiding Method Bedside Commode Bedside Commode Bedside Commode # Voids 2 1 - Labs CBC & Chem 7: 03/27/24 10:27 03/28/24 06:52 Labs: Abnormal Lab Results - Last 24 Hours (Table) 03/27/24 03/28/24 03/28/24 Range/Units 19:03 06:52 06:52 APTT 45.5 H 60.8 H (22.0-30.0) sec BUN 26 H (7-17) mg/dL Assessment and Plan Time with Patient: Less than 30
[2024-03-29] MEDS: LOSARTAN 25 MG TAB PO SCH (09:12)
[2024-03-29 11:18] LABS: African American GFR (CKD) 62 (>60 ml/min/1.73 sqM); Anion Gap 7 mmol/L; Blood Urea Nitrogen 33 mg/dL (7-17); Calcium 9.1 mg/dL (8.4-10.2); Carbon Dioxide 28 mmol/L (22-30); Chloride 105 mmol/L (98-107); Glucose 93 mg/dL (74-99); Non-African American GFR(CKD) 54 (>60 ml/min/1.73 sqM); Potassium 3.5 mmol/L (3.5-5.1); Sodium 140 mmol/L (137-145)
[2024-03-29 11:25] LABS: NT-Pro-B-Type Natriuretic Pept 12000 pg/mL
[2024-03-29] MEDS ORDERED: NITROGLYCERIN SL TABS 0.4 MG TAB SUBLINGUAL PRN (12:04)
[2024-03-29] MEDS ORDERED: ALPRAZolam 0.25 MG TAB PO PRN (12:04)
--- NOTE | 2024-03-29 13:03 | P.PN ---
Subjective Progress Note Date: 03/29/24 HISTORY OF PRESENTING ILLNESS Patient is a 63-year-old female with no prior cardiovascular history. She does report that she smokes approximately 1 pack a day. She denies any prior history of strokes or diabetes. She does report history of hypertension. This time she presented to the hospital because of increased worsening shortness of breath along with cough. She denies any fever or chills. Her admission ECG shows sinus rhythm with nonspecific ST changes in inferolateral leads. Labs showed a troponin elevation of 0.06 with a flat pattern. Her BNP was elevated at 22,[address] chest shows diffuse bilateral pulmonary congestion along with small bilateral pleural effusion. BP 178/94 on admission. Repeat 146/95 03/28 Patient states that his breathing is better today. He is on IV Lasix 40 mg every 12 hours. Blood pressure 82/52, heart rate 62, pulse ox 92% on room air. Repeat blood work reveals sodium 138, potassium 4.1, creatinine 0.94. BUN 26. A1c 5.7 echocardiogram reveals EF of 25 to 30%, moderate mitral regurgitation, normal pulmonary artery systolic pressure. Heparin drip was discontinued yesterday. Patient is maintained on IV Lasix 40 mg every 12 hours 03/29 Patient states her breathing is better. She does have a cough that is dry and nonproductive. She denies having any chest pain. No lower extremity edema. Discussed echocardiogram results with the patient and she is agreeable to move forward with cardiac catheterization tomorrow. She is currently on IV Lasix 40 mg twice daily which we will transition to oral Lasix. Blood pressure 100/61, heart rate 76, pulse ox 93% on room air. Repeat blood work reveals sodium 140, potassium 3.5, BUN 33 creatinine 1.09. proBNP 12,000. Echocardiogram reveals EF of 25 to 30%, moderate mitral regurgitation, normal pulmonary artery systolic pressure. PHYSICAL EXAMINATION Vital signs reviewed. Head: Normocephalic. Eyes: Sclerae nonicteric. Lungs: Reduced air entry bilateral lung chu along with no wheezing. Heart: Regular rate and rhythm, S1-S2, no S3, no murmur or rub. Abdomen: Soft nontender, positive bowel sounds. Extremities: No pitting edema in bilateral lower extremity, intact distal pulses. Neuro: Alert, oriented, no focal deficits. ASSESSMENT Acute systolic heart failure exacerbation Acute severe COPD exacerbation Acute hypoxic respiratory failure Mild elevation of troponins flat pattern, likely due to CHF, and hypoxia from COPD exacerbation. New cardiomyopathy of unclear etiology Tobacco smoker History of multiple sclerosis Obesity Essential hypertension Prediabetes PLAN Continue aspirin 81 mg daily, Lipitor 40 mg, metoprolol succinate 50 mg daily Transition IV Lasix to oral 40 mg daily Start patient on Farxiga 10 mg daily Continue Aldactone 25 mg daily Continue reduced dose of losartan 12.5 mg daily Schedule patient for cardiac catheterization tomorrow with Dr. Mathew Further recommendations to follow Nurse practitioner note has been reviewed, I agree with documented findings and plan of care. Patient was seen and examined. Objective - Vital Signs Vital signs: Vital Signs Temp 98.5 F 03/29/24 08:00 Pulse 76 03/29/24 08:00 Resp 18 03/29/24 08:00 BP 100/61 03/29/24 08:00 Pulse Ox 93 L 03/29/24 08:00 FiO2 Intake & Output 03/28/24 03/29/24 03/29/24 18:59 06:59 18:59 Intake Total 832 120 236 Output Total 800 900 Balance 790 -355 -981 Weight 62.3 kg 68.4 kg Intake: Oral 832 120 236 Output: Urine 800 900 Other: Voiding Method Bedside Commode Bedside Commode Bedside Commode # Voids 1 - Labs CBC & Chem 7: 03/27/24 10:27 03/29/24 10:46
[2024-03-29] MEDS: DAPAGLIFLOZIN PROPANEDIOL 10 MG TABLET PO SCH (13:18)
--- NOTE | 2024-03-29 14:04 | P.PN ---
Subjective Progress Note Date: 03/29/24 63-year-old pleasant female with known history of COPD no known history of congestive heart failure came in with complaints of shortness of breath orthopnea. Found to be in CHF with pulm edema on the chest x-ray bilateral pleural effusions, elevated BNP of around 22,500. Patient dyspnea is exertional. Patient denies any chest pain EKG here showed some new nonspecific T wave abnormality in the anterolateral leads. Patient troponins are slightly elevated to 0.05-0.064 and 0.064. Patient was started on IV Lasix with improvement in her symptoms and good urine output patient continues to smoke, denies any history of coronary artery disease. Patient had an elevated NE D- dimer because of which ER obtain a CT of the chest to rule out pulmonary embolism other results are pending at this time. Pretest probably for PE is low. 03/28/2024 Patient is evaluated today in follow up on the medical floor. Patient remains on IV lasix 40 mg Q12. Has improvement in her shortness of breath. Patient has been weaned to room air with oxygen saturations of 90% Blood pressure on the lower side. Losartan has been decreased to 12.5 mg daily. Cardiology following. Echocardiogram comes back with Severe LV systolic dysfunction of 25-30% with moderate MR, normal pulmonary artery systolic pressure. There is moderate mitral regurgitation. Blood work reveals sodium of 138, potassium of 4.1, BUN 26, creatinine 0.94. 03/29/2024 Patient is evaluated today on the medical floor in follow-up. Patient was continued on IV Lasix 40 mg every 12 hours. Patient was found to have an EF of 25 to 30%. Cardiology is recommending to undergo cardiac catheterization. Patient is continued on a decreased dose of losartan secondary to decreased blood pressures. Patient will go to go cardiac catheterization tomorrow with Dr. Mathew. Bun is 33, creatinine is 1.09. [place] [address]. Review of Systems Constitutional: Denied any fatigue denied any fever. Cardio vascular: denied any chest pain, palpitations Gastrointestinal: denied any nausea, vomiting, diarrhea Pulmonary: Denied any shortness of breath cough Neurologic denied any new focal deficits All inpatient medications were reviewed and appropriate changes in these medications as dictated in the interval history and assessment and plan PHYSICAL EXAMINATION: GENERAL: The patient is alert and oriented x3, not in any acute distress. Well developed, well nourished. HEENT: Pupils are round and equally reacting to light. EOMI. No scleral icterus. No conjunctival pallor. Normocephalic, atraumatic. No pharyngeal erythema. No thyromegaly. CARDIOVASCULAR: S1 and S2 present. No murmurs, rubs, or gallops. PULMONARY: Chest is clear to auscultation, no wheezing or crackles. ABDOMEN: Soft, nontender, nondistended, normoactive bowel sounds. No palpable organomegaly. MUSCULOSKELETAL: No joint swelling or deformity. EXTREMITIES: No cyanosis, clubbing. Mild non pitting edema. NEUROLOGICAL: Gross neurological examination did not reveal any focal deficits. SKIN: No rashes. Assessment and plan -Acute systolic heart failure with ejection fracture of 25-30% -New cardiomyopathy unknown etiology at this time patient needs further work up -Troponin elevation due to congestive heart failure; pattern not suggestive of ACS -Acute hypoxemic respiratory failure due to CHF and COPD. Has improved with IV lasix and patient weaned to room air. -Gastroesophageal flux disease -Hypertension -Hx of MS -Hypertension losartan has been decreased and hydrochlorothiazide has been discontinued -COPD without any acute exacerbation -Chronic daily nicotine use DVT prophylaxis: Patient is on IV heparin for possible non-ST elevation [place] Plan Patient continues on IV lasix 40 mg Q12 hour and strict intake and output monitoring, monitor renal function Cardiology has decreased the dose of losartan Continues on aldactone and metoprolol. IV heparin has been discontinued Cardiology recommending cardiac catheterization tomorrow BMP in the AM PT and OT consultation The impression and plan of care has been dictated by Joelle Vernon, Nurse Practitioner as directed. Dr. Ludin MD I have performed a history and physical examination and medical decision making of this patient, discussed the same with the dictator, and agree with the dictators assessment and plan as written, documented as a scribe. Based on total visit time, I have performed more than 50% of this visit. Objective - Vital Signs Vital signs: Vital Signs Temp 97.8 F 03/28/24 21:01 Pulse 62 03/29/24 03:18 Resp 19 03/29/24 03:18 BP 93/61 03/29/24 03:18 Pulse Ox 90 L 03/29/24 03:18 FiO2 Intake & Output 06/17/24 06/18/24 06/18/24 18:59 06:59 18:59 Intake Total 832 120 236 Output Total 800 Balance 832 -680 236 Weight 62.3 kg 68.4 kg Intake: Oral 832 120 236 Output: Urine 800 Other: Voiding Method Bedside Commode Bedside Commode # Voids 1 - Labs CBC & Chem 7: 03/27/24 10:27 03/29/24 10:46 Assessment and Plan Time with Patient: Less than 30
[2024-03-30] MEDS: SODIUM CHLORIDE 0.9% 1,000 ML in EMPTY BAG 1 BAG IV SCH ×2 (04:13→20:20)
[2024-03-30] MEDS: FUROSEMIDE 40 MG TAB PO SCH (06:01)
[2024-03-30] MEDS ORDERED: HEPARIN SODIUM,PORCINE 10,000 UNIT in SODIUM CHLORIDE 0.9% 1,000 ML IRRIGATION PRN (07:00)
[2024-03-30] MEDS ORDERED: HEPARIN SODIUM,PORCINE (1 ML) 2,500 UNIT in SODIUM CHLORIDE 0.9% 250 ML IRRIGATION PRN (07:00)
[2024-03-30 07:56] LABS: African American GFR (CKD) 58 (>60 ml/min/1.73 sqM); Anion Gap 7 mmol/L; Blood Urea Nitrogen 33 mg/dL (7-17); Calcium 8.8 mg/dL (8.4-10.2); Carbon Dioxide 26 mmol/L (22-30); Chloride 105 mmol/L (98-107); Glucose 92 mg/dL (74-99); Non-African American GFR(CKD) 50 (>60 ml/min/1.73 sqM); Potassium 3.6 mmol/L (3.5-5.1); Sodium 138 mmol/L (137-145)
[2024-03-30] MEDS: ASPIRIN 81 MG PO SCH (08:50)
--- NOTE | 2024-03-30 10:51 | CDI ---
Documentation Clarification Form Date: 03/30/2024 10:28:39 AM From: Chayo Stinson RN CCDS Phone: [phone] Admit Date: 03/26/2024 10:43:00 PM Patient Name: Pamela Castro Visit Number: [id number] Discharge Date: ATTENTION: The Clinical Documentation Specialists (CDI) and [facility] Coding Staff appreciate your assistance in clarifying documentation. Please respond to the clarification below the line at the bottom and electronically sign. The CDI & [facility] Coding staff will review the response and follow-up if needed. Please note: Queries are made part of the Legal Health Record. If you have any questions, please contact the author of this message via ITS. TAWNYA [place] Your patient has troponin level(s) of: 03/26 0.052; 0.064; 03/27 0.064. Please clarify if there is an additional diagnosis and/or clinical significance related to this value. Patient history/risk factors: 63-year-old female presents to the ED with shortness of breath and orthopnea. Medical History: CHF, GERD and HTN. 03/27, HP. Clinical indicators: Cardiology note, 03/29: Mild elevation of troponins flat pattern, likely due to CHF and hypoxia from COPD exacerbation. EKG, 03/26: Sinus rhythm with occasional ventricular premature complexes. Possible left atrial enlargement. Low QRS Voltage in Extremity Leads. Moderate T-wave abnormality, consider anterior ischemia. CXR, 03/26: Cardiomegaly and mild pulmonary vascular congestion. Troponins, 03/26: 0.052; 0.064; 0.064 PBNP, 03/26: 35480 ECHO 03/28: EF 25-30% moderate mitral regurgitation, normal pulmonary artery systolic pressure. Treatment: 03/26 Lasix iv x 1; Heparin iv d/c 03/27; 03/27 Lasix iv q 8 hr d/c 03/27; 03/27 Aldactone po x 1; 03/27 Lasix iv q 12hr; 03/28 Toprol Xl po daily; 03/28 Aldactone po daily; 03/29 Farxiga po daily. Is there an additional diagnosis and/or clinical significance related to the above lab result/information: [ xx ] Type 2 DC due to CHF [ ] No additional diagnosis/Not clinically significant [ X ] Other, please specify ___chronic myocardial injury [ ] Unable to determine Reference: [employer] [address] [place] Definition of Myocardial Infraction Elevated Cardiac Troponin >99th percentile with Troponin rise and/or fall With Acute ischemia Acute Myocardial Infarction Atherosclerosis thrombosis Type I DC Oxygen supply and demand imbalance Type II DC (Please indicate etiology) Without acute ischemia Acute Myocardial Injury (Template Last Reviewed: April 2023) MTDD
[2024-03-30 11:41] LABS: Glucose,Whole Blood 99 mg/dL (70-110)
[2024-03-30] MEDS: SODIUM CHLORIDE 0.9% 1,000 ML IV ONE (12:05)
[2024-03-30] MEDS: fentaNYL (PF) 50 MCG/ML 2 ML AMP IVP ONE (12:11)
[2024-03-30] MEDS: MIDAZOLAM 2 MG/2 ML VIAL IVP ONE ×2 (12:11→12:45)
[2024-03-30] MEDS ORDERED: VERAPAMIL 2.5 MG/ML 2 ML AMP ONE (12:12)
[2024-03-30] MEDS ORDERED: LIDOCAINE 1% INJ 10MG/ML (20 ML MDV) ONE (12:12)
[2024-03-30] MEDS: LIDOCAINE 1% INJ 10MG/ML (20 ML MDV) SQ ONE (12:12)
[2024-03-30] MEDS: VERAPAMIL SYRINGE (5 MG/10 ML) INTRAARTER ONE (12:15)
[2024-03-30] MEDS ORDERED: fentaNYL (PF) 50 MCG/ML 2 ML AMP ONE (12:16)
[2024-03-30] MEDS: HEPARIN SODIUM 1,000 UN/ML (10ML VL) IVP ONE (12:22)
[2024-03-30] MEDS ORDERED: HEPARIN SODIUM 1,000 UN/ML (10ML VL) ONE (12:43)
[2024-03-30] MEDS ORDERED: CLOPIDOGREL 75 MG TAB ONE (12:44)
[2024-03-30] MEDS: CLOPIDOGREL 75 MG TAB PO ONE (12:46)
--- NOTE | 2024-03-30 13:28 | P.PN ---
Subjective Progress Note Date: 03/30/24 HISTORY OF PRESENTING ILLNESS Patient is a 63-year-old female with no prior cardiovascular history. She does report that she smokes approximately 1 pack a day. She denies any prior history of strokes or diabetes. She does report history of hypertension. This time she presented to the hospital because of increased worsening shortness of breath along with cough. She denies any fever or chills. Her admission ECG shows sinus rhythm with nonspecific ST changes in inferolateral leads. Labs showed a troponin elevation of 0.06 with a flat pattern. Her BNP was elevated at 22,[address] chest shows diffuse bilateral pulmonary congestion along with small bilateral pleural effusion. BP 178/94 on admission. Repeat 146/95 03/28 Patient states that his breathing is better today. He is on IV Lasix 40 mg every 12 hours. Blood pressure 82/52, heart rate 62, pulse ox 92% on room air. Repeat blood work reveals sodium 138, potassium 4.1, creatinine 0.94. BUN 26. A1c 5.7 echocardiogram reveals EF of 25 to 30%, moderate mitral regurgitation, normal pulmonary artery systolic pressure. Heparin drip was discontinued yesterday. Patient is maintained on IV Lasix 40 mg every 12 hours 03/29 Patient states her breathing is better. She does have a cough that is dry and nonproductive. She denies having any chest pain. No lower extremity edema. Discussed echocardiogram results with the patient and she is agreeable to move forward with cardiac catheterization tomorrow. She is currently on IV Lasix 40 mg twice daily which we will transition to oral Lasix. Blood pressure 100/61, heart rate 76, pulse ox 93% on room air. Repeat blood work reveals sodium 140, potassium 3.5, BUN 33 creatinine 1.09. proBNP 12,000. Echocardiogram reveals EF of 25 to 30%, moderate mitral regurgitation, normal pulmonary artery systolic pressure. 03/30 Patient denies having any chest pain or shortness of breath today. No significant cough. She states she slept well last night. No events overnight. She is scheduled for cardiac cath today with Dr. Mathew. Blood pressure 105/65, heart rate 65, pulse ox 99% on room air. Yesterday, IV Lasix was transitioned to oral and patient was started on Farxiga. PHYSICAL EXAMINATION Vital signs reviewed. Head: Normocephalic. Eyes: Sclerae nonicteric. Lungs: Reduced air entry bilateral lung chu along with no wheezing. Heart: Regular rate and rhythm, S1-S2, no S3, no murmur or rub. Abdomen: Soft nontender, positive bowel sounds. Extremities: No pitting edema in bilateral lower extremity, intact distal pulses. Neuro: Alert, oriented, no focal deficits. ASSESSMENT Acute systolic heart failure exacerbation Acute severe COPD exacerbation Acute hypoxic respiratory failure Mild elevation of troponins flat pattern, likely due to CHF, and hypoxia from C OPD exacerbation, chronic myocardial injury New cardiomyopathy of unclear etiology, rule out ischemia Tobacco smoker History of multiple sclerosis Obesity Essential hypertension Prediabetes PLAN Continue aspirin 81 mg daily, Lipitor 40 mg, metoprolol succinate 50 mg daily Continue Lasix oral 40 mg daily Continue patient on Farxiga 10 mg daily Continue Aldactone 25 mg daily Continue reduced dose of losartan 12.5 mg daily Schedule patient for cardiac catheterization today with Dr. Mathew Further recommendations to follow Nurse practitioner note has been reviewed, I agree with documented findings and plan of care. Patient was seen and examined. Objective - Vital Signs Vital signs: Vital Signs Temp 97.9 F 03/30/24 04:00 Pulse 68 03/30/24 08:22 Resp 16 03/30/24 04:00 BP 101/58 03/30/24 04:00 Pulse Ox 94 L 03/30/24 08:09 FiO2 Intake & Output 03/29/24 03/30/24 03/30/24 18:59 06:59 18:59 Intake Total 696 Output Total 1999 Balance -1304 Weight 68.1 kg Intake: Oral 696 Output: Urine 1999 Other: Voiding Method Bedside Commode Bedside Commode # Voids 1 - Labs CBC & Chem 7: 03/27/24 10:27 03/30/24 07:17 Labs: Abnormal Lab Results - Last 24 Hours (Table) 03/29/24 03/30/24 Range/Units 10:46 07:17 BUN 33 H 33 H (7-17) mg/dL Creatinine 1.09 H 1.16 H (0.52-1.04) mg/dL
[2024-03-30] MEDS: IOPAMIDOL-370 200ML BTL INJ ONE (13:42)
--- NOTE | 2024-03-30 14:05 | P.CARDCATH ---
Date of Procedure: 03/30/24 Description of Procedure: DIAGNOSTIC CORONARY ANGIOGRAPHY and LEFT HEART CATH REPORT PROCEDURES PERFORMED: Left heart catheterization Selective coronary angiography Moderate conscious sedation 22 mins Right radial access INDICATION: Newly diagnosed cardiomyopathy 63-year-old female presented to the hospital with elevated troponin, type II NSTEMI, CHF exacerbation COPD exacerbation acute hypoxic respiratory failure. Her echo showed a new finding of cardiomyopathy with a EF 20%. For this she was scheduled for heart catheterization. CONSENT: I have explained the procedural steps of above-mentioned procedures in layman's terms to the patient. I discussed the risks (including but not limited to stroke, emergent vascular or cardiac surgery or ), benefits and alternative therapies for the above-mentioned procedure. I discussed the risks of sedation/analgesia and blood product administration (if indicated). The patient has indicated understanding and acceptance of these risks. Conscious Sedation: Patient's ECG, heart rate, blood pressure, pulse oximetry were monitored throughout the duration of procedure under my direct supervision. [2] mg Versed and [50] mg Fentanyl were used for induction of moderate conscious sedation. Total duration of moderate concious sedation [22] minutes. PROCEDURE: After explaining the risks, benefits and alternatives of the above mentioned procedures in detail to the patient, informed consent was obtained. Patient was taken to the catheterization lab, prepped and draped in usual sterile fashion using universal precuations. Barbow and steve test were performed to confirm adequate perfusion to fingers. 1% lidocaine was infiltrated over the right radial artery. A 6-Swedish sheath was placed and secured in the right radial artery using modified Seldinger technique. The sheath was flushed and 5 mg verapamil was administered intra-arterially. J tipped wire was advanced under fluoroscopic guidance. Once the wire tip reached aortic root [4000] units of IV heparin was given. Over the wire JR4 diagnostic catheter was advanced. The wire in place the catheter was manipulated to cross the aortic valve and entered into LV under fluoroscopy guidance. The wire was removed and the catheter was flushed. LV pressures were obtained and pullback was performed under fluoroscopy. Catheter was manipulated to selectively engage the right coronary ostium. Right coronary angiography was performed in different angiographic projections. The JR4 diagnostic catheter was exchanged for a JL 3.5 diagnostic catheter over the J-wire. The wire was removed, catheter was flushed and manipulated under fluoroscopy to selectively engaged the left coronary ostium. Left coronary angioplasty was performed in different angiographic projections. Catheter was removed over the wire. Radial sheath was flushed. The wire was left in place. Decision was made to proceed with cardiac intervention to LCx and LAD. HEMODYNAMICS: Aortic Pressure: 100/52 mmHg. LV pressure: 100/10 mmHg. LVEDP 15 mmHg. There was no significant gradient across the aortic valve. SELECTIVE CORONARY ARTERIOGRAPHY: LEFT MAIN: The left main is a short, tortuous large caliber vessel which bifurcates into the LAD and circumflex. Distal LAD has 10% disease. LEFT ANTERIOR DESCENDING CORONARY ARTERY: LAD is a large caliber vessel which wraps around to the apex. Proximal LAD has mild luminal irregularities. Mid LAD just after giving diagonal branch has 80 to 90% calcific disease. Origin of diagonal artery has 80 to 90% ostial disease. Bifurcation disease Noel class I, 1, 1 . Distal LAD has mild irregularities. LEFT CIRCUMFLEX CORONARY ARTERY: It is nondominant vessel. RIGHT CORONARY ARTERY: Dominant vessel. The right coronary artery is a large caliber vessel which gives PDA and PLV branch. Proximal and mid RCA has mild to moderate parities IMPRESSION: 95% OM 2 stenosis with CARLOS ALBERTO I flow 80 to 90% mid LAD stenosis and ostial diagonal disease. Normal LVEDP PLAN: Plan for intervention of LCx and LAD with Dr Chang. Further recommendations to follow Performing Physician Zachery Mathew MD, FACC, RPVI Thank you for allowing [facility] to participate in this patient's care. Feel free to reach out in case of any followup questions.
[2024-03-30] MEDS ORDERED: ZOLPIDEM 5 MG TAB PO PRN (14:09)
[2024-03-30] MEDS ORDERED: RX INFO: IV CONTRAST WAS GIVEN 1 EACH MISC MISCELLANE PRN (14:09)
[2024-03-30] MEDS ORDERED: MAG HYDROX/AL HYDROX/SIMETH 30 ML CUP PO PRN (14:09)
[2024-03-30] MEDS ORDERED: NITROGLYCERIN SL TABS 0.4 MG TAB SUBLINGUAL PRN (14:09)
[2024-03-30] MEDS ORDERED: ATROPINE SULFATE 0.1 MG/ML 10ML SYRINGE IV PRN (14:09)
--- NOTE | 2024-03-30 14:18 | P.CARDCATH ---
Date of Procedure: 03/30/24 Description of Procedure: PERCUTANEOUS TRANSLUMINAL CORONARY ANGIOPLASTY CLINICAL INFORMATION: The patient is a 63-year-old female with history of hypertension, hyperlipidemia and chronic tobacco use who presented with progressive dyspnea and mild troponin elevation. She had evidence of CHF and her left ventricle systolic function revealed severe impairment. She underwent coronary angiography by Dr. Mathew and was found to have severe obstructive disease in the LAD and left circumflex.. Recommendations were made regarding angioplasty and stenting. The procedure as well as the risks and the complications were discussed with the patient who was in full understanding and agreement. PROCEDURE: A 6 Vincentian 6 Vincentian CLS 3.5 guiding catheter was introduced into the system. After cannulating the left main, a 0.014 BMW J-wire was advanced across the lesion and positioned distally in the OM. Following that a 2.5 x 12 mm trek balloon was advanced and inflated at 8 atmosphere. After removing the balloon a [employer] eye IVUS catheter was introduced and images were obtained that revealed moderately calcified lesion with a distal lumen of 2.5 mm. Following that a 2.75 x 23 mm Xience amy point stent was deployed. It was dilated at 16 mary. After removing the balloon repeat IVUS imaging was performed and subsequently 3.25 x 15 mm NC trek balloon was advanced and 2 inflations at 12 mary were done. Subsequently the wire was removed and images were obtained and revealed stable successful stenting. At that time the wire was introduced in the LAD. Attempt to advanced the IVUS catheter were unsuccessful because of the right lesion. A 2.5 x 12 mm trek balloon was advanced and multiple inflation at 8 mary were done. Subsequently IVUS imaging was performed and revealed a calcified lesion with a distal lumen measuring between 2.75 and 3.0 mm. A 2.75 x 23 mm Xience amy point stent was advanced and deployed at 16 mary. Repeat IVUS imaging was performed and subsequently a 3.25 x 15 mm NC trek balloon was advanced and inflations in the proximal segment were done at 10 mary. After the last inflation, after appropriate wait, the balloon and the guidewire were withdrawn back into the guiding catheter. Images were obtained and repeated. Those images reveal stable successful stenting. At that point, the guiding catheter, the balloon, and guidewire were removed. The sheath was removed. Hemostasis was obtained with deployment of a TR band. There were no immediate complications. The patient was returned to the room in stable condition. Of note, the patient received a total of 1100 units of heparin as well as Plavix. Her ACT was followed. There was no immediate complications. She had no chest discomfort but she had EKG changes that resolved at the end of the procedure RESULTS: Successful stenting of the mid left circumflex with reduction of stenosis from 99% to 0% with adjunctive IVUS imaging and CARLOS ALBERTO-3 flow. Successful stenting of the mid LAD with reduction of stenosis from 80% to 0% with adjunctive IVUS imaging and CARLOS ALBERTO-3 flow postprocedure. RECOMMENDATIONS: The patient will continue on aspirin and clopidogrel without any interruption for 1 year in addition to aggressive coronary risks modification, maintaining LDL below 70 mg/dL. She was given instruction regarding smoking cessation. Aggressive coronary risks modification will be continued with close follow-up of her left ventricle systolic function. The findings and recommendations were discussed with the patient and was in full understanding and agreement. Duration of sedation: 67 minutes
--- NOTE | 2024-03-30 14:33 | P.PN ---
Subjective Progress Note Date: 03/30/24 63-year-old pleasant female with known history of COPD no known history of congestive heart failure came in with complaints of shortness of breath orthopnea. Found to be in CHF with pulm edema on the chest x-ray bilateral pleural effusions, elevated BNP of around 22,500. Patient dyspnea is exertional. Patient denies any chest pain EKG here showed some new nonspecific T wave abnormality in the anterolateral leads. Patient troponins are slightly elevated to 0.05-0.064 and 0.064. Patient was started on IV Lasix with improvement in her symptoms and good urine output patient continues to smoke, denies any history of coronary artery disease. Patient had an elevated RI D- dimer because of which ER obtain a CT of the chest to rule out pulmonary embolism other results are pending at this time. Pretest probably for PE is low. 03/28/2024 Patient is evaluated today in follow up on the medical floor. Patient remains on IV lasix 40 mg Q12. Has improvement in her shortness of breath. Patient has been weaned to room air with oxygen saturations of 90% Blood pressure on the lower side. Losartan has been decreased to 12.5 mg daily. Cardiology following. Echocardiogram comes back with Severe LV systolic dysfunction of 25-30% with moderate MR, normal pulmonary artery systolic pressure. There is moderate mitral regurgitation. Blood work reveals sodium of 138, potassium of 4.1, BUN 26, creatinine 0.94. 03/29/2024 Patient is evaluated today on the medical floor in follow-up. Patient was continued on IV Lasix 40 mg every 12 hours. Patient was found to have an EF of 25 to 30%. Cardiology is recommending to undergo cardiac catheterization. Patient is continued on a decreased dose of losartan secondary to decreased blood pressures. Patient will go to go cardiac catheterization tomorrow with Dr. Mathew. Bun is 33, creatinine is 1.09. [place] [id number]. 03/30/2024 Patient is evaluated follow-up. Cardiac catheterization today with the findings of severe obstructive disease in the LAD and left circumflex. Patient went back to [facility] with Dr. Chang and had successful stenting of the mid left circumflex and the mid LAD. Patient is on aspirin Plavix time. She reports no episodes of chest discomfort or chest pain overnight. Patient has been continued on IV Lasix which has now been discontinued. Her BUN is up to 33 and a creatinine of 1.16 today. Review of Systems Constitutional: Denied any fatigue denied any fever. Cardio vascular: denied any chest pain, palpitations Gastrointestinal: denied any nausea, vomiting, diarrhea Pulmonary: Denied any shortness of breath cough Neurologic denied any new focal deficits All inpatient medications were reviewed and appropriate changes in these medications as dictated in the interval history and assessment and plan PHYSICAL EXAMINATION: GENERAL: The patient is alert and oriented x3, not in any acute distress. Well developed, well nourished. HEENT: Pupils are round and equally reacting to light. EOMI. No scleral icterus. No conjunctival pallor. Normocephalic, atraumatic. No pharyngeal erythema. No thyromegaly. CARDIOVASCULAR: S1 and S2 present. No murmurs, rubs, or gallops. PULMONARY: Chest is clear to auscultation, no wheezing or crackles. ABDOMEN: Soft, nontender, nondistended, normoactive bowel sounds. No palpable organomegaly. MUSCULOSKELETAL: No joint swelling or deformity. EXTREMITIES: No cyanosis, clubbing. Mild non pitting edema. NEUROLOGICAL: Gross neurological examination did not reveal any focal deficits. SKIN: No rashes. Assessment and plan -Acute systolic heart failure with ejection fracture of 25-30% -New cardiomyopathy ischemic etiology -Tre artery disease with successful stenting of the mid LAD and mid left circumflex -Troponin elevation due to congestive heart failure; pattern not suggestive of ACS -Acute hypoxemic respiratory failure due to CHF and COPD. Has improved with IV lasix and patient weaned to room air. -Gastroesophageal flux disease -Hypertension -Hx of MS -Hypertension losartan has been decreased and hydrochlorothiazide has been discontinued -COPD without any acute exacerbation -Chronic daily nicotine use DVT prophylaxis: Patient is on IV heparin for possible non-ST elevation RI Plan Patient has been taken off lasix Cardiology has decreased the dose of losartan Continues on aldactone and metoprolol. IV heparin has been discontinued Patient will continue on dual antiplatelet therapy with aspirin and Plavix for the next 12 months without interruption and aggressive risk factor modification per cardiology Patient is counseled extensively on the importance of smoking cessation. BMP in the AM PT and OT consultation Possible discharge home in the next 24 hours cardiac telemetry monitoring overnight The impression and plan of care has been dictated by Joelle Vernon, Nurse Practitioner as directed. Dr. Ludin MD I have performed a history and physical examination and medical decision making of this patient, discussed the same with the dictator, and agree with the dictators assessment and plan as written, documented as a scribe. Based on total visit time, I have performed more than 50% of this visit. Objective - Vital Signs Vital signs: Vital Signs Temp 97.8 F 03/30/24 12:00 Pulse 65 03/30/24 12:00 Resp 18 03/30/24 12:00 BP 105/65 03/30/24 12:00 Pulse Ox 99 03/30/24 12:00 FiO2 Intake & Output 03/29/24 03/30/24 03/30/24 18:59 06:59 18:59 Intake Total 696 200 Output Total 1999 Balance -1304 200 Weight 68.1 kg Intake: IV 200 Oral 696 Output: Urine 1999 Other: Voiding Method Bedside Commode Bedside Commode Bedside Commode # Voids 1 - Labs CBC & Chem 7: 03/27/24 10:27 03/30/24 07:17 Labs: Abnormal Lab Results - Last 24 Hours (Table) 03/30/24 Range/Units 07:17 BUN 33 H (7-17) mg/dL Creatinine 1.16 H (0.52-1.04) mg/dL Assessment and Plan Time with Patient: Less than 30
[2024-03-30] MEDS: ATORVASTATIN 80 MG TAB PO SCH (20:20)
[2024-03-31 01:39] VITALS: TEMP 97.9
[2024-03-31 08:44] VITALS: RESP 16
[2024-03-31] MEDS: CLOPIDOGREL 75 MG TAB PO SCH (08:45)
[2024-03-31 09:18] LABS: African American GFR (CKD) 72 (>60 ml/min/1.73 sqM); Anion Gap 5 mmol/L; Blood Urea Nitrogen 25 mg/dL (7-17); Carbon Dioxide 24 mmol/L (22-30); Chloride 111 mmol/L (98-107); Glucose 100 mg/dL (74-99); Non-African American GFR(CKD) 62 (>60 ml/min/1.73 sqM); Potassium 4.4 mmol/L (3.5-5.1); Sodium 140 mmol/L (137-145)
--- NOTE | 2024-03-31 10:32 | P.PN ---
Subjective Progress Note Date: 03/31/24 HISTORY OF PRESENTING ILLNESS Patient is a 63-year-old female with no prior cardiovascular history. She does report that she smokes approximately 1 pack a day. She denies any prior history of strokes or diabetes. She does report history of hypertension. This time she presented to the hospital because of increased worsening shortness of breath along with cough. She denies any fever or chills. Her admission ECG shows sinus rhythm with nonspecific ST changes in inferolateral leads. Labs showed a troponin elevation of 0.06 with a flat pattern. Her BNP was elevated at 22,[address] chest shows diffuse bilateral pulmonary congestion along with small bilateral pleural effusion. BP 178/94 on admission. Repeat 146/95 03/28 Patient states that his breathing is better today. He is on IV Lasix 40 mg every 12 hours. Blood pressure 82/52, heart rate 62, pulse ox 92% on room air. Repeat blood work reveals sodium 138, potassium 4.1, creatinine 0.94. BUN 26. A1c 5.7 echocardiogram reveals EF of 25 to 30%, moderate mitral regurgitation, normal pulmonary artery systolic pressure. Heparin drip was discontinued yesterday. Patient is maintained on IV Lasix 40 mg every 12 hours 03/29 Patient states her breathing is better. She does have a cough that is dry and nonproductive. She denies having any chest pain. No lower extremity edema. Discussed echocardiogram results with the patient and she is agreeable to move forward with cardiac catheterization tomorrow. She is currently on IV Lasix 40 mg twice daily which we will transition to oral Lasix. Blood pressure 100/61, heart rate 76, pulse ox 93% on room air. Repeat blood work reveals sodium 140, potassium 3.5, BUN 33 creatinine 1.09. proBNP 12,000. Echocardiogram reveals EF of 25 to 30%, moderate mitral regurgitation, normal pulmonary artery systolic pressure. 03/30 Patient denies having any chest pain or shortness of breath today. No significant cough. She states she slept well last night. No events overnight. She is scheduled for cardiac cath today with Dr. Mathew. Blood pressure 105/65, heart rate 65, pulse ox 99% on room air. Yesterday, IV Lasix was transitioned to oral and patient was started on Farxiga. 03/31 Yesterday, patient underwent cardiac catheterization with Dr. Mathew which revealed 95% OM 2 stenosis with CARLOS ALBERTO I flow, 80 to 90% mid LAD stenosis and ostial diagonal disease. Normal LVEDP. Subsequently, patient underwent PTCA with Dr. Chang with successful stenting of the mid left circumflex and mid LAD. Patient is seen today in follow-up. She states she is feeling less fatigued with walking. She denies any chest pain. She states she slept okay during the night. Right wrist shows no sign of hematoma. Again discussed patient's need for smoking cessation and she will be provided with the [place] quit line information. Blood pressure 114/67, heart rate 66, pulse ox 94% on room air. BUN 25 creatinine 0.97. PHYSICAL EXAMINATION Vital signs reviewed. Head: Normocephalic. Eyes: Sclerae nonicteric. Lungs: Reduced air entry bilateral lung chu with no wheezing. Heart: Regular rate and rhythm, S1-S2, no S3, no murmur or rub. Abdomen: Soft nontender, positive bowel sounds. Extremities: No pitting edema in bilateral lower extremity, intact distal pulses. Neuro: Alert, oriented, no focal deficits. ASSESSMENT Acute systolic heart failure exacerbation Acute severe COPD exacerbation Acute hypoxic respiratory failure Mild elevation of troponins flat pattern, likely due to CHF, and hypoxia from COPD exacerbation and coronary artery disease, chronic myocardial injury Ischemic cardiomyopathy secondary to coronary artery disease status post stenting of the left circumflex and mid LAD Tobacco smoker History of multiple sclerosis Obesity Essential hypertension Prediabetes PLAN Continue aspirin 81 mg daily, Lipitor increased to 80 mg, metoprolol succinate 50 mg daily, Farxiga 10 mg daily, losartan 12.5 mg daily, Aldactone 25 mg daily Continue patient on Plavix 75 mg daily Patient is cleared from cardiology for discharge and may follow-up with Dr. Mathew in 1 week. New cardiac prescriptions will be sent to her pharmacy. Nurse practitioner note has been reviewed, I agree with documented findings and plan of care. Patient was seen and examined. Objective - Vital Signs Vital signs: Vital Signs Temp 97.9 F 03/31/24 04:00 Pulse 66 03/31/24 04:00 Resp 16 03/31/24 08:43 BP 114/67 03/31/24 08:43 Pulse Ox 94 L 03/31/24 08:43 FiO2 Intake & Output 03/30/24 03/31/24 03/31/24 18:59 06:59 18:59 Intake Total 1310 540 118 Balance 1310 540 118 Intake: IV 200 Intake, IV Titration 150 Amount Sodium Chloride 0.9% 1, 150 000 ml In Empty Bag 1 bag @ 1 ML/KG/HR 68.1 mls/hr IV .[id number] [facility] Rx#: [id number] Oral 960 540 118 Other: Voiding Method Bedside Commode Toilet - Labs CBC & Chem 7: 03/27/24 10:27 03/31/24 08:32
[2024-03-31 11:47] VITALS: BP 113/71; PULSE 68
--- NOTE | 2024-03-31 16:30 | P.DS ---
Providers Date of admission: 03/26/24 22:43 Expected date of discharge: 03/31/24 Attending physician: Marshall Farfan Consults: 03/26/24 22:38 Consult Physician Routine Consulting Provider: Justice Robertson Consult Reason/Comments: CHF, elevated troponin Do you want consulting provider notified?: Yes, Notify in am 03/30/24 14:09 Consult Physician Routine Consulting Provider: [facility] Consult Reason/Comments: Post Interventional Patient Do you want consulting provider notified?: Already Contacted Primary care physician: [facility] Course: 63-year-old pleasant female with known history of COPD no known history of congestive heart failure came in with complaints of shortness of breath orthopnea. Found to be in CHF with pulm edema on the chest x-ray bilateral pleural effusions, elevated BNP of around 22,500. Patient dyspnea is exertional. Patient denies any chest pain EKG here showed some new nonspecific T wave abnormality in the anterolateral leads. Patient troponins are slightly elevated to 0.05-0.064 and 0.064. Patient was started on IV Lasix with improvement in her symptoms and good urine output patient continues to smoke, denies any history of coronary artery disease. Patient had an elevated SC D- dimer because of which ER obtain a CT of the chest to rule out pulmonary embolism other results are pending at this time. Pretest probably for PE is low. 03/28/2024 Patient is evaluated today in follow up on the medical floor. Patient remains on IV lasix 40 mg Q12. Has improvement in her shortness of breath. Patient has been weaned to room air with oxygen saturations of 90% Blood pressure on the lower side. Losartan has been decreased to 12.5 mg daily. Cardiology following. Echocardiogram comes back with Severe LV systolic dysfunction of 25-30% with moderate MR, normal pulmonary artery systolic pressure. There is moderate mitral regurgitation. Blood work reveals sodium of 138, potassium of 4.1, BUN 26, creatinine 0.94. 03/29/2024 Patient is evaluated today on the medical floor in follow-up. Patient was continued on IV Lasix 40 mg every 12 hours. Patient was found to have an EF of 25 to 30%. Cardiology is recommending to undergo cardiac catheterization. Patient is continued on a decreased dose of losartan secondary to decreased blood pressures. Patient will go to go cardiac catheterization tomorrow with Dr. Mathew. Bun is 33, creatinine [place] 1.09. [place] [id number]. 03/30/2024 Patient is evaluated follow-up. Cardiac catheterization today with the findings of severe obstructive disease in the LAD and left circumflex. Patient went back to the Clinical Data Management Director with Dr. Chang and had successful stenting of the mid left circumflex and the mid LAD. Patient is on aspirin Plavix time. She reports no episodes of chest discomfort or chest pain overnight. Patient has been continued on IV Lasix which has now been discontinued. Her BUN is up to 33 and a creatinine of 1.16 today. March 31: Cardiac catheterization by Dr. Mathew/Dr. Chang. Successful stenting of the mid circumflex and mid LAD was carried out. No chest pain or short of breath. Patient is ambulated. at the bedside. Advised about smoking. Cleared by cardiology for discharge. Patient follow-up with Dr. Mathew and PCP. Discussion and discharge planning more than 35 minutes On examination: VITAL SIGNS: [97.9, 66, 15, 112 x 65, 93% room air] GENERAL APPEARANCE: Sitting up, comfortable HEENT: Normal external appearance of nose and ear. Oral cavity normal EYES: Pupils equal. Conjunctiva normal. NECK: JVD not raised. Mass not palpable. RESPIRATORY: Respiratory effort normal. Lungs fair air entry. CARDIOVASCULAR: First and second sounds normal. No edema. ABDOMEN: Soft. Liver and spleen not palpable. No tenderness. No mass palpable. PSYCHIATRY: Alert and oriented x3. Mood and affect normal. INVESTIGATIONS, reviewed in the clinical context: March 31: Potassium 4.4 creatinine 0.97 proBNP [id number] Troponin I 0.052, 0.064, 0.064 2D echocardiogram: EF 25 to 30%. Moderate mitral regurgitation. Assessment and plan -Acute systolic heart failure with ejection fracture of 25-30% -New cardiomyopathy ischemic etiology -Coronary artery disease with successful stenting of the mid LAD and mid left circumflex -Troponin elevation due to congestive heart failure; pattern not suggestive of ACS -Acute hypoxemic respiratory failure due to CHF and COPD. Has improved with IV lasix and patient weaned to room air. -Gastroesophageal flux disease -Hypertension -Hx of MS -Hypertension losartan has been decreased and hydrochlorothiazide has been discontinued -COPD without any acute exacerbation -Chronic daily nicotine use Disposition: Home Plan - Discharge Summary Discharge Rx Participant: No New Discharge Prescriptions: New Spironolactone [Aldactone] 25 mg PO DAILY #90 tab Atorvastatin [Lipitor] 80 mg PO HS #90 tab Nitroglycerin Sl Tabs [Nitrostat] 0.4 mg SUBLINGUAL Q5M PRN #25 tab PRN Reason: Chest Pain Metoprolol Succinate (ER) [Toprol XL] 50 mg PO DAILY #90 tab Nicotine 21Mg/24Hr Patch [Habitrol] 1 each TRANSDERM DAILY #30 patch Aspirin 81 mg PO DAILY tab Losartan [Cozaar] 12.5 mg PO DAILY #45 tab Dapagliflozin Propanediol [Farxiga] 10 mg PO DAILY #90 tab Clopidogrel [Plavix] 75 mg PO DAILY #90 tab Continue Albuterol Inhaler [Ventolin Hfa Inhaler] 1 - 2 puff INHALATION RT-Q6H PRN PRN Reason: Shortness Of Breath Escitalopram [Lexapro] 10 mg PO DAILY Discontinued amLODIPine [Norvasc] 10 mg PO DAILY Spironolactone [Aldactone] 50 mg PO DAILY Discharge Medication List Albuterol Inhaler [Ventolin Hfa Inhaler] 1 - 2 puff INHALATION RT-Q6H PRN 03/27/24 [History] Escitalopram [Lexapro] 10 mg PO DAILY 03/27/24 [History] Aspirin 81 mg PO DAILY tab 03/31/24 [Rx] Atorvastatin [Lipitor] 80 mg PO HS #90 tab 03/31/24 [Rx] Clopidogrel [Plavix] 75 mg PO DAILY #90 tab 03/31/24 [Rx] Dapagliflozin Propanediol [Farxiga] 10 mg PO DAILY #90 tab 03/31/24 [Rx] Losartan [Cozaar] 12.5 mg PO DAILY #45 tab 03/31/24 [Rx] Metoprolol Succinate (ER) [Toprol XL] 50 mg PO DAILY #90 tab 03/31/24 [Rx] Nicotine 21Mg/24Hr Patch [Habitrol] 1 each TRANSDERM DAILY #30 patch 03/31/24 [Rx] Nitroglycerin Sl Tabs [Nitrostat] 0.4 mg SUBLINGUAL Q5M PRN #25 tab 03/31/24 [Rx] Spironolactone [Aldactone] 25 mg PO DAILY #90 tab 03/31/24 [Rx] Follow up Appointment(s)/Referral(s): Zachery Mathew MD [Medical Doctor] - 04/07/24 2:45 pm () Francisco Hernandez MD [Primary Care Provider] - 1-2 days (PLease call to schedule appointment) Patient Instructions/Handouts: *[facility] - After Heart Catheterization - Fine Arts Instructor Instructions Discharge Disposition: HOME SELF-CARE
== END 2024-03-31 13:24 | disposition home or self-care (01) | DRG 321 ==
LOC: EC 18:21 → 3SCARD 22:43
PROVIDERS: ADMIT Hospitalist; ATTEND Hospitalist
PROC: 0271356 Dilation of Coronary Artery, Two Arteries, Bifurcation, with Two Drug-eluting Intraluminal Devices, Percutaneous Approach (ICD-10-PCS; principal; 2024-03-30 08:30)
PROC: 4A023N7 Measurement of Cardiac Sampling and Pressure, Left Heart, Percutaneous Approach (ICD-10-PCS; 2024-03-30 08:30)
PROC: B2111ZZ Fluoroscopy of Multiple Coronary Arteries using Low Osmolar Contrast (ICD-10-PCS; 2024-03-30 08:30)
PROC: B241ZZ3 Ultrasonography of Multiple Coronary Arteries, Intravascular (ICD-10-PCS; 2024-03-30 08:30)
DX: I11.0 Hypertensive heart disease with heart failure (principal); I21.A1 Myocardial infarction type 2; I50.23 Acute on chronic systolic (congestive) heart failure; J96.01 Acute respiratory failure with hypoxia; J44.1 Chronic obstructive pulmonary disease with (acute) exacerbation; G35 Multiple sclerosis; E66.9 Obesity, unspecified; I34.0 Nonrheumatic mitral (valve) insufficiency; K21.9 Gastro-esophageal reflux disease without esophagitis; F17.210 Nicotine dependence, cigarettes, uncomplicated; I25.5 Ischemic cardiomyopathy; R73.03 Prediabetes; I49.3 Ventricular premature depolarization; E78.5 Hyperlipidemia, unspecified; Z96.643 Presence of artificial hip joint, bilateral; Z88.5 Allergy status to narcotic agent; Z88.8 Allergy status to other drugs, medicaments and biological substances; Z79.899 Other long term (current) drug therapy; Z88.2 Allergy status to sulfonamides; Z68.26 Body mass index [BMI] 26.0-26.9, adult
CPT/HCPCS: 36415; 71046; 71275; 80048; 80053; 83036; 83605; 83735; 83880; 84145; 84484; 85025; 85379; 85610; 85730; 92978; 92979; 93005; 93306; 93458; 94640; 94760; 96365; 96366; 96375; 96376; 99291

== ENCOUNTER 2024-04-25 08:47 | Inpatient (IN) | payer MEDICARE, OTHER ==
--- NOTE | 2024-04-25 09:01 | ED ---
SOB HPI - General Chief Complaint: Shortness of Breath Stated Complaint: SOB Time Seen by Provider: 04/25/24 08:51 Source: patient, RN notes reviewed, old records reviewed Mode of arrival: wheelchair Limitations: no limitations - History of Present Illness Initial Comments: This 63-year-old female to the ER for evaluation and presenting today for evalua tion of shortness of breath with persistent shortness of breath here in the emergency room. No travel history no sick contacts recent inpatient hospital admission where she did receive stents. Patient is persistently short of breath here in the ER MD Complaint: shortness of breath, cough, chest pain -: days(s) Severity: moderate Severity scale (1-10): 6 Consistency: constant Improves With: nothing Worsens With: nothing Known History Of: congestive heart failure, other (Stent placed) Context: anxiety, recent illness Associated Symptoms: denies other symptoms - Related Data Home Medications Medication Instructions Recorded Confirmed Albuterol Inhaler [Ventolin Hfa 1 - 2 puff INHALATION RT-Q6H PRN 03/27/24 03/27/24 Inhaler] Escitalopram [Lexapro] 10 mg PO DAILY 03/27/24 03/27/24 Previous Rx's Medication Instructions Recorded Aspirin 81 mg PO DAILY tab 03/31/24 Atorvastatin [Lipitor] 80 mg PO HS #90 tab 03/31/24 Clopidogrel [Plavix] 75 mg PO DAILY #90 tab 03/31/24 Dapagliflozin Propanediol [Farxiga] 10 mg PO DAILY #90 tab 03/31/24 Losartan [Cozaar] 12.5 mg PO DAILY #45 tab 03/31/24 Metoprolol Succinate (ER) [Toprol 50 mg PO DAILY #90 tab 03/31/24 XL] Nicotine 21Mg/24Hr Patch [Habitrol] 1 each TRANSDERM DAILY #30 patch 03/31/24 Nitroglycerin Sl Tabs [Nitrostat] 0.4 mg SUBLINGUAL Q5M PRN #25 tab 03/31/24 Spironolactone [Aldactone] 25 mg PO DAILY #90 tab 03/31/24 Allergies Allergy/AdvReac Type Severity Reaction Status Date / Time pravastatin Allergy Unknown Panic Verified 04/25/24 08:51 attacks codeine Allergy Itching, Verified 04/25/24 08:51 rash sulfamethoxazole Allergy throat Verified 04/25/24 08:51 [From Bactrim] tight trimethoprim [From Bactrim] Allergy throat Verified 04/25/24 08:51 tight Review of Systems ROS Statement: Those systems with pertinent positive or pertinent negative responses have been documented in the HPI. ROS Other: All systems not noted in ROS Statement are negative. Past Medical History Past Medical History: GERD/Reflux, Hypertension, Osteoarthritis (OA) Additional Past Medical History / Comment(s): DDD, chronic back pain, scoliosis History of Any Multi-Drug Resistant Organisms: None Reported Past Surgical History: Cholecystectomy, Joint Replacement Additional Past Surgical History / Comment(s): ORIF left ankle, exploratory laparotomy,martin hip replacement Past Anesthesia/Blood Transfusion Reactions: No Reported Reaction Past Psychological History: No Psychological Hx Reported Smoking Status: Current every day smoker Past Alcohol Use History: None Reported Past Drug Use History: None Reported - Past Family History Mother History Unknown: Yes Family Medical History: No Reported History Father History Unknown: Yes Family Medical History: No Reported History General Exam Limitations: no limitations General appearance: alert, in no apparent distress Head exam: Present: atraumatic, normocephalic, normal inspection Eye exam: Present: normal appearance, PERRL, EOMI. Absent: scleral icterus, conjunctival injection, periorbital swelling ENT exam: Present: normal exam, mucous membranes moist Neck exam: Present: normal inspection. Absent: tenderness, meningismus, lymphadenopathy Respiratory exam: Present: normal lung sounds bilaterally. Absent: respiratory distress, wheezes, rales, rhonchi, stridor Cardiovascular Exam: Present: regular rate, normal rhythm, normal heart sounds. Absent: systolic murmur, diastolic murmur, rubs, gallop, clicks GI/Abdominal exam: Present: soft, normal bowel sounds. Absent: distended, tenderness, guarding, rebound, rigid Extremities exam: Present: normal inspection, full ROM, normal capillary refill. Absent: tenderness, pedal edema, joint swelling, calf tenderness Back exam: Present: normal inspection Neurological exam: Present: alert, oriented X3, CN II-XII intact Psychiatric exam: Present: normal affect, normal mood Skin exam: Present: warm, dry, intact, normal color. Absent: rash Course Vital Signs 04/25/24 04/25/24 04/25/24 08:49 09:40 10:07 Temperature 97.5 F L Pulse Rate 86 64 Respiratory 20 20 16 Rate Blood Pressure 165/122 148/90 O2 Sat by Pulse 96 97 Oximetry 04/25/24 10:32 Temperature Pulse Rate Respiratory Rate Blood Pressure O2 Sat by Pulse 100 Oximetry - Reevaluation(s) Reevaluation #1: 04/25/24 09:01 Medical records reviewed Reevaluation #2: 04/25/24 10:44 Patient symptoms improved and then she did go for a walk with oxygen dropping to the 80s with significant increase in work of breathing Reevaluation #3: 04/25/24 10:45 Informed of results and questions answered Reevaluation #4: Was pt. sent in by a medical professional or institution (, [facility], [facility], urgent care, hospital, or care home...) When possible be specific @ -no Did you speak to anyone other than the patient for history (EMS, parent, family, police, friend...)? What history was obtained from this source @ -no Did you review nursing and triage notes (agree or disagree)? Why? @ -agree Are old charts reviewed (outside hosp., previous admission, EMS record, old EKG, old radiological studies, urgent care reports/EKG's, care home records)? Report findings @ -yes Differential Diagnosis (chest pain, altered mental status, abdominal pain women, abdominal pain men, vaginal bleeding, weakness, fever, dyspnea, syncope, headache, dizziness, GI bleed, back pain, seizure, CVA, palpatations, mental health, musculoskeletal)? @ -prior EKG interpreted by me (3pts min.). @ -yes X-rays interpreted by me (1pt min.). @ -yes negative for acute disease CT interpreted by me (1pt min.). @ -no U/S interpreted by me (1pt. min.). @ -no What testing was considered but not performed or refused? (CT, X-rays, U/S, labs)? Why? @ -none What meds were considered but not given or refused? Why? @ -none Did you discuss the management of the patient with other professionals (professionals i.e. [facility] Buck, [facility], lab, RT, psych nurse, clinical social work therapist, statistical clerk, teacher, chief information security officer, caser shoe parts)? Give summary @ -no Was smoking cessation discussed for >3mins.? @ -no Was critical care preformed (if so, how long)? @ -no Were there social determinants of health that impacted care today? How? (Homelessness, low income, unemployed, alcoholism, drug addiction, transportation, low edu. Level, literacy, decrease access to med. care, retirement, rehab)? @ -none Was there de-escalation of care discussed even if they declined (Discuss DNR or withdrawal of care, Hospice)? DNR status @ -no What co-morbidities impacted this encounter? (DM, HTN, Smoking, COPD, CAD, Cancer, CVA, ARF, Chemo, Hep., AIDS, mental health diagnosis, sleep apnea, morbid obesity)? @ -none Was patient admitted / discharged? Hospital course, mention meds given and route, prescriptions, significant lab abnormalities, going to OR and other pertinent info. @ - Undiagnosed new problem with uncertain prognosis? @ -no Drug Therapy requiring intensive monitoring for toxicity (Heparin, Nitro, Insulin, Cardizem)? @ -no Were any procedures done? @ -no Diagnosis/symptom? @ - Acute, or Chronic, or Acute on Chronic? @ -Acute Uncomplicated (without systemic symptoms) or Complicated (systemic symptoms)? @ -Complicated Side effects of treatment? @ -no Exacerbation, Progression, or Severe Exacerbation? @ -exacerbation Poses a threat to life or bodily function? How? (Chest pain, USA, MT, pneumonia, PE, COPD, DKA, ARF, appy, cholecystitis, CVA, Diverticulitis, Homicidal, Suicidal, threat to staff... and all critical care pts) @ -yes Reevaluation #5: Differential Dyspnea: Coronary syndrome, arrhythmia, tamponade, asthma, COPD, pulmonary embolism, pneumonia, pneumothorax, pulmonary effusion, anaphylaxis, diabetic ketoacidosis, flailed chest, pulmonary contusion, diaphragmatic rupture, anemia, neuromuscular, this is not meant to be an all-inclusive list. - Consultations Consultation #1: spoke jessika adkins for admission Medical Decision Making - Medical Decision Making 63 female to ER for evaluation of severe shortness of breath dyspnea COPD CHF with recent stent placed, patient does have elevated troponin will trend tro ponin placed on anticoagulation. Patient did walk to the bathroom here in the emergency room and he became significantly short of breath with severe hypoxia oxygen in the low 80s - Lab Data Result diagrams: 04/25/24 09:04 04/25/24 09:04 Lab Results 04/25/24 04/25/24 04/25/24 Range/Units 09:04 09:04 09:04 WBC 6.8 (3.8-10.6) k/uL RBC 4.38 (3.80-5.40) m/uL Hgb 13.7 (11.4-16.0) gm/dL Hct 44.1 (34.0-46.0) % MCV 100.6 H (80.0-100.0) fL MCH 31.2 (25.0-35.0) pg MCHC 31.0 (31.0-37.0) g/dL RDW 13.8 (11.5-15.5) % Plt Count 179 (150-450) k/uL MPV 8.6 Neutrophils % 66 % Lymphocytes % 21 % Monocytes % 6 % Eosinophils % 4 % Basophils % 1 % Neutrophils # 4.5 (1.3-7.7) k/uL Lymphocytes # 1.5 (1.0-4.8) k/uL Monocytes # 0.4 (0-1.0) k/uL Eosinophils # 0.3 (0-0.7) k/uL Basophils # 0.0 (0-0.2) k/uL Macrocytosis Slight Sodium 140 (137-145) mmol/L Potassium 4.7 (3.5-5.1) mmol/L Chloride 114 H (98-107) mmol/L Carbon Dioxide 15 L (22-30) mmol/L Anion Gap 11 mmol/L BUN 24 H (7-17) mg/dL Creatinine 0.79 (0.52-1.04) mg/dL Est GFR (CKD-EPI)AfAm >90 (>60 ml/min/1.73 sqM) Est GFR (CKD-EPI)NonAf 80 (>60 ml/min/1.73 sqM) Glucose 92 (74-99) mg/dL Plasma Lactic Acid John 2.4 H* (0.7-2.0) mmol/L Calcium 9.2 (8.4-10.2) mg/dL Total Bilirubin 0.9 (0.2-1.3) mg/dL AST 41 H (14-36) U/L ALT 24 (4-34) U/L Alkaline Phosphatase 108 (38-126) U/L Troponin I (0.000-0.034) ng/mL NT-Pro-B Natriuret Pep pg/mL Total Protein 7.1 (6.3-8.2) g/dL Albumin 3.9 (3.5-5.0) g/dL 04/25/24 04/25/24 Range/Units 09:04 09:04 WBC (3.8-10.6) k/uL RBC (3.80-5.40) m/uL Hgb (11.4-16.0) gm/dL Hct (34.0-46.0) % MCV (80.0-100.0) fL MCH (25.0-35.0) pg MCHC (31.0-37.0) g/dL RDW (11.5-15.5) % Plt Count (150-450) k/uL MPV Neutrophils % % Lymphocytes % % Monocytes % % Eosinophils % % Basophils % % Neutrophils # (1.3-7.7) k/uL Lymphocytes # (1.0-4.8) k/uL Monocytes # (0-1.0) k/uL Eosinophils # (0-0.7) k/uL Basophils # (0-0.2) k/uL Macrocytosis Sodium (137-145) mmol/L Potassium (3.5-5.1) mmol/L Chloride (98-107) mmol/L Carbon Dioxide (22-30) mmol/L Anion Gap mmol/L BUN (7-17) mg/dL Creatinine (0.52-1.04) mg/dL Est GFR (CKD-EPI)AfAm (>60 ml/min/1.73 sqM) Est GFR (CKD-EPI)NonAf (>60 ml/min/1.73 sqM) Glucose (74-99) mg/dL Plasma Lactic Acid John (0.7-2.0) mmol/L Calcium (8.4-10.2) mg/dL Total Bilirubin (0.2-1.3) mg/dL AST (14-36) U/L ALT (4-34) U/L Alkaline Phosphatase (38-126) U/L Troponin I 0.047 H* (0.000-0.034) ng/mL NT-Pro-B Natriuret Pep 83225 pg/mL Total Protein (6.3-8.2) g/dL Albumin (3.5-5.0) g/dL - EKG Data -: EKG Interpreted by Me (EKG is to sinus bradycardia 50 CO 134 QRS 101 QTc 423) - Radiology Data Radiology results: report reviewed (Chest x-rays for CHF), image reviewed Critical Care Time Critical Care Time: Yes Total Critical Care Time: 31 Disposition Clinical Impression: Acute exacerbation of chronic obstructive pulmonary disease, Systolic congestive heart failure, Acute pulmonary edema, Elevated troponin, Acute bronc hospasm, Hypoxia Disposition: ADMITTED IP TO THIS HOSP Condition: Serious Is patient prescribed a controlled substance at d/c from ED?: No Referrals: Francisco Hernandez MD [Primary Care Provider] - 1-2 days Time of Disposition: 10:40
[2024-04-25 09:23] LABS: Basophils % (A) 1 %; Eosinophils # (A) 0.3 k/uL (0-0.7); Eosinophils % (A) 4 %; HCT 44.1 % (34.0-46.0); HGB 13.7 gm/dL (11.4-16.0); Lymphocytes # (A) 1.5 k/uL (1.0-4.8); Lymphocytes % (A) 21 %; MCH 31.2 pg (25.0-35.0); MCV 100.6 fL (80.0-100.0); Macrocytosis Slight; Mean Platelet Volume 8.6; Monocytes # (A) 0.4 k/uL (0-1.0); Monocytes % (A) 6 %; Neutrophils # (A) 4.5 k/uL (1.3-7.7); Neutrophils % (A) 66 %; Platelet Count 179 k/uL (150-450); RBC 4.38 m/uL (3.80-5.40); RDW 13.8 % (11.5-15.5); WBC 6.8 k/uL (3.8-10.6)
[2024-04-25 09:32] LABS: ALT 24 U/L (4-34); African American GFR (CKD) >90 (>60 ml/min/1.73 sqM); Albumin 3.9 g/dL (3.5-5.0); Anion Gap 11 mmol/L; Blood Urea Nitrogen 24 mg/dL (7-17); Calcium 9.2 mg/dL (8.4-10.2); Carbon Dioxide 15 mmol/L (22-30); Chloride 114 mmol/L (98-107); Glucose 92 mg/dL (74-99); Non-African American GFR(CKD) 80 (>60 ml/min/1.73 sqM); Sodium 140 mmol/L (137-145); Total Bilirubin 0.9 mg/dL (0.2-1.3); Total Protein 7.1 g/dL (6.3-8.2)
[2024-04-25 09:33] LABS: AST 41 U/L (14-36); Alkaline Phosphatase 108 U/L (38-126); Potassium 4.7 mmol/L (3.5-5.1)
[2024-04-25] MEDS: FUROSEMIDE 10 MG/ML 4 ML VIAL IV STA (09:36)
--- NOTE | 2024-04-25 09:57 | XR ---
EXAMINATION TYPE: XR chest 2V DATE OF EXAM: 04/25/2024 COMPARISON: 03/26/2024 HISTORY: 63 year-old female shortness of breath, difficulty breathing TECHNIQUE: PA and lateral views FINDINGS: Heart borderline in size. Hyperinflation and interstitial prominence. No yaquelin consolidation or pleur al effusion. IMPRESSION: COPD and borderline heart size. Mild interstitial density. Consider mild CHF with pulmonary vascular congestion. No focal infiltrate or yaqulein pulmonary edema.
[2024-04-25] MEDS ORDERED: NALOXONE 0.4 MG/ML 1 ML VIAL IVP PRN (10:37)
[2024-04-25] MEDS ORDERED: NITROGLYCERIN SL TABS 0.4 MG TAB SUBLINGUAL PRN (10:37)
[2024-04-25] MEDS ORDERED: MORPHINE SULFATE 4 MG/ML SYRINGE IV PRN ×2 (10:37)
[2024-04-25] MEDS: methylPREDNISolone SOD SUCCI 125 MG/2 ML VIAL IV STA (10:59)
[2024-04-25] MEDS: IPRATROPIUM-ALBUTEROL 3 ML NEB INHALATION STA ×2 (10:59→11:31)
[2024-04-25] MEDS: ASPIRIN 81 MG PO STA (10:59)
[2024-04-25] MEDS: ALBUTEROL NEBULIZED 2.5 MG/3 ML INHALATION SCH (11:00)
[2024-04-25] MEDS: HEPARIN SOD,PORK IN 0.45% NACL 25,000 UNIT in 0.45% NACL 1 250ML.BAG IV SCH (11:01)
[2024-04-25] MEDS: HEPARIN SODIUM 1,000 UN/ML (10ML VL) IV ONE (11:05)
[2024-04-25] MEDS: SODIUM CHLORIDE 0.9% 1,000 ML IV SCH (11:39)
[2024-04-25 11:43] LABS: INR 1.1 (<1.2); Prothrombin Time 11.8 sec (10.0-12.5)
--- NOTE | 2024-04-25 14:50 | P.CNPUL ---
History of Present Illness Consult date: 04/25/24 Requesting physician: Francisco Hernandez Reason for consult: dyspnea, cough, COPD, hypoxemia, abnormal CXR/CT, other Chief complaint: Shortness of breath. History of present illness: Pulmonary consult dated April 25, 2024. 63-year-old female who looks much older than her stated age, went to the emergen cy department on April 25, at about 4 to 9 AM. The patient came in with complaints of shortness of breath, which apparently have been going on for few days prior to admission. Her shortness of breath was much worse with exertion. The patient denies any fever or chills. She also denies any chest pain or chest discomfort. She does admit to a dry nonproductive cough. No nausea, vomiting, diarrhea, or abdominal pain. The patient had a very elevated N-terminal proBNP of 12,600. Her troponins were elevated 0.047 and 0.043. The patient was on 2 L of oxygen, and receiving IV heparin as well. She smoked for at least 50 years. The patient has a history of hypertension, osteoarthritis, gastroesophageal reflux disease, chronic back pain, scoliosis, and degenerative disc disease. The patient does continue to smoke cigarettes. Current labs include a white count of 6.8, hemoglobin 13.7, hematocrit 44.1, and a normal platelet count. Coagulation studies are normal. Sodium 140, potassium 4.7, chlorides 114, CO2 15, anion gap 11, BUN 24, creatinine 0.79. Lactic acid was 2.4. AST was 41. Troponins were 0.047 and 0.043. As mentioned above N-terminal proBNP was quite elevated at 12,600. Chest x-ray is consistent with COPD, with mild pulmonary vascular congestion. Review of Systems REVIEW OF SYSTEMS: CONSTITUTIONAL: [Negative.] NEUROLOGIC: [ Negative.] HEENT: [ Negative.] CARDIAC: [Negative.] PULMONARY: Shortness of breath on exertion, but also at rest. GI: [Negative.] : [Negative.] RHEUMATOLOGIC: [ Negative.] IMMUNOLOGIC: [ Negative.] ENDOCRINE: [Negative. ] DERMATOLOGIC: [Negative.] Past Medical History Past Medical History: GERD/Reflux, Hypertension, Osteoarthritis (OA) Additional Past Medical History / Comment(s): DDD, chronic back pain, scoliosis History of Any Multi-Drug Resistant Organisms: None Reported Past Surgical History: Cholecystectomy, Joint Replacement Additional Past Surgical History / Comment(s): ORIF left ankle, exploratory laparotomy,martin hip replacement Past Anesthesia/Blood Transfusion Reactions: No Reported Reaction Past Psychological History: No Psychological Hx Reported Smoking Status: Current every day smoker Past Alcohol Use History: None Reported Past Drug Use History: None Reported - Past Family History Mother History Unknown: Yes Family Medical History: No Reported History Father History Unknown: Yes Family Medical History: No Reported History Medications and Allergies Home Medications Medication Instructions Recorded Confirmed Type Albuterol Inhaler [Ventolin Hfa 1 - 2 puff INHALATION RT-Q6H PRN 03/27/24 04/25/24 History Inhaler] Escitalopram [Lexapro] 10 mg PO DAILY 03/27/24 04/25/24 History Aspirin 81 mg PO DAILY tab 03/31/24 04/25/24 Rx Atorvastatin [Lipitor] 80 mg PO HS #90 tab 03/31/24 04/25/24 Rx Clopidogrel [Plavix] 75 mg PO DAILY #90 tab 03/31/24 04/25/24 Rx Losartan [Cozaar] 12.5 mg PO DAILY #45 tab 03/31/24 04/25/24 Rx Metoprolol Succinate (ER) [Toprol 50 mg PO DAILY #90 tab 03/31/24 04/25/24 Rx XL] Spironolactone [Aldactone] 25 mg PO DAILY #90 tab 03/31/24 04/25/24 Rx Nicotine 21Mg/24Hr Patch [Habitrol] 1 patch TRANSDERM DAILY 04/25/24 04/25/24 History Nitroglycerin Sl Tabs [Nitrostat] 0.4 mg SL Q5M PRN 04/25/24 04/25/24 History Allergies Allergy/AdvReac Type Severity Reaction Status Date / Time pravastatin Allergy Unknown Panic Verified 04/25/24 08:51 attacks codeine Allergy Itching, Verified 04/25/24 08:51 rash sulfamethoxazole Allergy throat Verified 04/25/24 08:51 [From Bactrim] tight trimethoprim [From Bactrim] Allergy throat Verified 04/25/24 08:51 tight Physical Exam Osteopathic Statement: *. No significant issues noted on an osteopathic structural exam other than those noted in the History and Physical/Consult. Vitals: Vital Signs Temp Pulse Resp BP Pulse Ox 04/25/24 12:00 72 18 144/98 95 04/25/24 11:51 58 L 04/25/24 11:33 53 L 99 04/25/24 10:32 100 04/25/24 10:07 64 16 148/90 97 04/25/24 09:40 20 04/25/24 08:49 97.5 F L 86 20 165/122 96 Intake and Output 04/24/24 04/25/24 04/25/24 22:59 06:59 14:59 Other: Weight 74.843 kg Mild respiratory distress, with mild conversational dyspnea. Oriented x 3. HEENT examination is grossly unremarkable. Mucous membranes are moist. No oral lesions. Neck supple. Full range of motion. No adenopathy thyromegaly or neck vein distention. Cardiovascular examination reveals regular rhythm rate. S1-S2 normal. No S3 or S4. No discernible murmur noted. Heart sounds are distant. Heart rate 72 bpm. Lungs reveal bibasilar crackles. No wheezes or rhonchi. 2 L saturation is 95%. Abdomen soft bowel sounds are heard. No masses or tenderness. Extremities are intact. No cyanosis or clubbing. Trace edema. Skin is without rash or lesion. Neurologic examination is brief but nonfocal. Results - Laboratory Findings CBC and BMP: 04/25/24 09:04 04/25/24 09:04 PT/INR, D-dimer PT 11.8 sec (10.0-12.5) 04/25/24 11:26 INR 1.1 (<1.2) 04/25/24 11:26 Abnormal lab findings: Abnormal Labs 04/25/24 04/25/24 04/25/24 09:04 09:04 09:04 MCV 100.6 H Chloride 114 H Carbon Dioxide 15 L BUN 24 H Plasma Lactic Acid John 2.4 H* AST 41 H Troponin I 04/25/24 04/25/24 09:04 11:21 MCV Chloride Carbon Dioxide BUN Plasma Lactic Acid John AST Troponin I 0.047 H* 0.043 H* - Diagnostic Findings Chest x-ray: image reviewed Assessment and Plan Assessment: Acute hypoxemic respiratory failure, likely multifactorial, in part related to fluid overload/CHF, as well as probable COPD exacerbation. Rule out non-ST segment elevation myocardial infarction. Ongoing and heavy tobacco use. History of hyperlipidemia. History of diabetes mellitus. History of hypertension. History of osteoarthritis. History of gastroesophageal reflux disease. History of degenerative disc disease. Plan: Plan dated April 25, 2024. The patient is seen today in the emergency department, room 25. The patient presented with increasing shortness of breath, with an elevated N-terminal proBNP of nearly 13,000, and modestly elevated troponin levels. The patient was seen, and placed on IV heparin. The patient also was placed on 2 L of oxygen. She does not take any inhalers, or home oxygen. She has been smoking for at least 50 years. Labs, x-rays, medications are reviewed. We will make sure that we treat the, pulmonary component of her respiratory difficulty. She is counseled about the importance of smoking cessation. Time with Patient: Greater than 30
[2024-04-25] MEDS: CLOPIDOGREL 75 MG TAB PO SCH (16:28)
[2024-04-25] MEDS: methylPREDNISolone SOD SUCCI 125 MG/2 ML VIAL IV SCH (18:12)
[2024-04-25] MEDS: HEPARIN SODIUM 1,000 UN/ML (10ML VL) IV PRN (18:22)
[2024-04-25] MEDS: ATORVASTATIN 80 MG TAB PO SCH (20:23)
--- NOTE | 2024-04-26 00:24 | P.HPIM ---
History of Present Illness H&P Date: 04/25/24 Chief Complaint: Shortness of breath Patient is a 63-year-old female with known history of hypertension, chronic back pain, scoliosis, GERD, currently everyday smoker and recent cardiac catheterization on 03/30/2024 s/p stenting of mid LAD and mid left circumflex artery. Patient presents to ER due to complaints of shortness of breath and exertional dyspnea. Patient also hypoxic at home. O does have cough without increased production. No chest pain. Denies any fever or chills. No nausea vomiting abdominal pain or diarrhea. On admission chest x-ray showed COPD and borderline heart size. Mild interstitial density. Consider mild CHF with pulmonary vascular congestion. No focal infiltrate or flank pulmonary edema. EKG showed sinus bradycardia with sinus arrhythmia. Laboratory data showed WBC 6.8 hemoglobin 13.7 and platelets 179, MCV 100.6 Sodium 140 potassium 4.7 chloride 114 bicarb is 15 BUN 24 and creatinine 0.79, lactic acid 2.4 troponin 0.047, 0.043 and 0.034 proBNP 12,600. AST 40 ALT 24 and alk phos 108 and albumin 3.9.Patient was given a dose of Lasix 40 mg IV x 1 and also methylprednisolone 1 to 20 mg IV x 1. Review of Systems Constitutional: Patient denies any fever or chills . No generalized weakness or weight loss. Abdomen: Patient denied nausea vomiting and diarrhea and abdominal pain. Cardiovascular: Patient denies any chest pain. Patient does have short of breath and exertional dyspnea. No palpitations. Respiratory: patient does have cough without sputum production. Positive for shortness of breath Neurologic: Patient denied any numbness or tingling. no headache. Musculoskeletal: Patient denies any complaints of joint swelling or deformity. Skin: Negative Psychiatric: Negative Endocrine: No heat or cold intolerance. No recent weight gain. Genitourinary: No dysuria or hematuria. All other 14 point ROS negative except the above Past Medical History Past Medical History: GERD/Reflux, Hypertension, Osteoarthritis (OA) Additional Past Medical History / Comment(s): DDD, chronic back pain, scoliosis History of Any Multi-Drug Resistant Organisms: None Reported Past Surgical History: Cholecystectomy, Joint Replacement Additional Past Surgical History / Comment(s): ORIF left ankle, exploratory laparotomy,martin hip replacement Past Anesthesia/Blood Transfusion Reactions: No Reported Reaction Past Psychological History: No Psychological Hx Reported Smoking Status: Current every day smoker Past Alcohol Use History: None Reported Past Drug Use History: None Reported - Past Family History Mother History Unknown: Yes Family Medical History: No Reported History Father History Unknown: Yes Family Medical History: No Reported History Medications and Allergies Home Medications Medication Instructions Recorded Confirmed Type Albuterol Inhaler [Ventolin Hfa 1 - 2 puff INHALATION RT-Q6H PRN 03/27/24 04/25/24 History Inhaler] Escitalopram [Lexapro] 10 mg PO DAILY 03/27/24 04/25/24 History Aspirin 81 mg PO DAILY tab 03/31/24 04/25/24 Rx Atorvastatin [Lipitor] 80 mg PO HS #90 tab 03/31/24 04/25/24 Rx Clopidogrel [Plavix] 75 mg PO DAILY #90 tab 03/31/24 04/25/24 Rx Losartan [Cozaar] 12.5 mg PO DAILY #45 tab 03/31/24 04/25/24 Rx Metoprolol Succinate (ER) [Toprol 50 mg PO DAILY #90 tab 03/31/24 04/25/24 Rx XL] Spironolactone [Aldactone] 25 mg PO DAILY #90 tab 03/31/24 04/25/24 Rx Nicotine 21Mg/24Hr Patch [Habitrol] 1 patch TRANSDERM DAILY 04/25/24 04/25/24 History Nitroglycerin Sl Tabs [Nitrostat] 0.4 mg SL Q5M PRN 04/25/24 04/25/24 History Sacubitril/Valsartan [Entresto 24 1 each PO BID #60 tablet 04/26/24 Rx mg-26 mg Tablet] Allergies Allergy/AdvReac Type Severity Reaction Status Date / Time pravastatin Allergy Unknown Panic Verified 04/25/24 08:51 attacks codeine Allergy Itching, Verified 04/25/24 08:51 rash sulfamethoxazole Allergy throat Verified 04/25/24 08:51 [From Bactrim] tight trimethoprim [From Bactrim] Allergy throat Verified 04/25/24 08:51 tight Physical Exam Vitals: Vital Signs Temp Pulse Resp BP Pulse Ox 04/25/24 12:00 72 18 144/98 95 04/25/24 11:51 58 L 04/25/24 11:33 53 L 99 04/25/24 10:32 100 04/25/24 10:07 64 16 148/90 97 04/25/24 09:40 20 04/25/24 08:49 97.5 F L 86 20 165/122 96 Intake and Output 04/25/24 04/25/24 04/25/24 06:59 14:59 22:59 Other: Weight 74.843 kg PHYSICAL EXAMINATION: Patient is lying in the bed comfortably, no acute distress, awake alert and oriented. Patient is lethargic and weak.. HEENT: Normocephalic. Neck is supple. Pupils reactive. Nostrils clear. Oral cavity is moist. Neck reveals no JVD, carotid bruits, or thyromegaly. CHEST EXAMINATION: Trachea is central. Symmetrical expansion. Bibasilar crackles. No wheezing or rhonchi. Nonlabored breathing.. CARDIAC: Normal S1, S2 with no gallops. No murmurs ABDOMEN: Soft. Bowel sounds normal. No organomegaly. No abdominal bruits. Extremities: Trace bilateral edema. No clubbing or cyanosis Neurologically awake, alert, oriented x3 with well-coordinated movements. No focal deficits noted Skin: No rash or skin lesions. Psychiatric: Coperative. Nonsuicidal Musculoskeletal: No joint swelling or deformity. Normal range of motion. Results CBC & Chem 7: 04/26/24 03:49 04/26/24 03:49 Labs: Abnormal Lab Results - Last 24 Hours (Table) 04/25/24 04/25/24 04/25/24 Range/Units 09:04 09:04 09:04 MCV 100.6 H (80.0-100.0) fL APTT (22.0-30.0) sec Chloride 114 H (98-107) mmol/L Carbon Dioxide 15 L (22-30) mmol/L BUN 24 H (7-17) mg/dL Plasma Lactic Acid John 2.4 H* (0.7-2.0) mmol/L AST 41 H (14-36) U/L Troponin I (0.000-0.034) ng/mL 04/25/24 04/25/24 04/25/24 Range/Units 09:04 11:21 14:11 MCV (80.0-100.0) fL APTT (22.0-30.0) sec Chloride (98-107) mmol/L Carbon Dioxide (22-30) mmol/L BUN (7-17) mg/dL Plasma Lactic Acid John 2.5 H* (0.7-2.0) mmol/L AST (14-36) U/L Troponin I 0.047 H* 0.043 H* (0.000-0.034) ng/mL 04/25/24 Range/Units 14:35 MCV (80.0-100.0) fL APTT 40.0 H (22.0-30.0) sec Chloride (98-107) mmol/L Carbon Dioxide (22-30) mmol/L BUN (7-17) mg/dL Plasma Lactic Acid John (0.7-2.0) mmol/L AST (14-36) U/L Troponin I (0.000-0.034) ng/mL Thrombosis Risk Factor Assmnt - DVT/VTE Prophylaxis DVT/VTE Prophylaxis: Pharmacologic Prophylaxis ordered Assessment and Plan Assessment: Acute hypoxic respiratory failure secondary to CHF/volume overload. Elevated proBNP and vascular congestion on chest x-ray. Patient is requiring 2 L oxygen via nasal cannula. Acute on chronic CHF with systolic dysfunction ejection fraction 25% Probable acute COPD exacerbation Coronary artery disease history of recent stent placement in March 2024 Elevated troponin level Uncontrolled hypertension Hyperlipidemia Diabetes type 2 [id number] Osteoarthritis GERD Ongoing nicotine addiction GI and DVT prophylaxis Plan: Patient was given Lasix 40 mg x 1. Continue with telemetry. Patient was star fozia on heparin drip. Started back on metoprolol and losartan. Continue with aspirin Plavix and stat ins. Continue the DuoNebs and IV Solu-Medrol. Pulmonary and cardiology was consulted. Continue with oxygen supplementation and follow-up closely. Prognosis guarded. Time with Patient: Greater than 30
[2024-04-26 04:11] LABS: Basophils % (A) 0 %; Eosinophils # (A) 0.1 k/uL (0-0.7); Eosinophils % (A) 1 %; HCT 43.9 % (34.0-46.0); HGB 13.6 gm/dL (11.4-16.0); Lymphocytes # (A) 0.9 k/uL (1.0-4.8); Lymphocytes % (A) 9 %; MCH 30.7 pg (25.0-35.0); MCV 98.9 fL (80.0-100.0); Mean Platelet Volume 8.4; Monocytes # (A) 0.1 k/uL (0-1.0); Monocytes % (A) 1 %; Neutrophils # (A) 8.5 k/uL (1.3-7.7); Neutrophils % (A) 88 %; Platelet Count 229 k/uL (150-450); RBC 4.44 m/uL (3.80-5.40); RDW 13.8 % (11.5-15.5); WBC 9.7 k/uL (3.8-10.6)
[2024-04-26 04:35] LABS: ALT 21 U/L (4-34); AST 23 U/L (14-36); African American GFR (CKD) >90 (>60 ml/min/1.73 sqM); Albumin 3.9 g/dL (3.5-5.0); Alkaline Phosphatase 109 U/L (38-126); Anion Gap 9 mmol/L; Blood Urea Nitrogen 22 mg/dL (7-17); Calcium 9.3 mg/dL (8.4-10.2); Carbon Dioxide 21 mmol/L (22-30); Chloride 113 mmol/L (98-107); Glucose 126 mg/dL (74-99); Magnesium 1.7 mg/dL (1.6-2.3); Non-African American GFR(CKD) 81 (>60 ml/min/1.73 sqM); Phosphorus 1.7 mg/dL (2.5-4.5); Potassium 3.9 mmol/L (3.5-5.1); Sodium 143 mmol/L (137-145); Total Bilirubin 0.6 mg/dL (0.2-1.3); Total Protein 6.9 g/dL (6.3-8.2)
[2024-04-26 05:57] LABS: Glucose,Whole Blood 116 mg/dL (70-110)
[2024-04-26] MEDS: INSULIN ASPART (NovoLOG) 100 UNIT/ML VIAL SQ SCH (06:02)
[2024-04-26] MEDS: methylPREDNISolone SOD SUCCI 40 MG/ML 1 ML VIAL IV SCH (08:41)
[2024-04-26] MEDS: SPIRONOLACTONE 25 MG TAB PO SCH (08:41)
[2024-04-26] MEDS: LOSARTAN 25 MG TAB PO SCH (08:42)
[2024-04-26] MEDS: METOPROLOL SUCCINATE (ER) 50 MG TAB.ER.24H PO SCH (08:42)
[2024-04-26] MEDS: ASPIRIN 81 MG PO SCH (08:42)
[2024-04-26] MEDS ORDERED: ASPIRIN 325 MG TAB PO SCH (09:00)
[2024-04-26] MEDS: SPIRONOLACTONE 25 MG TAB PO STA (10:04)
[2024-04-26 11:38] LABS: Glucose,Whole Blood 132 mg/dL (70-110)
--- NOTE | 2024-04-26 12:10 | P.CRDCN ---
History of Present Illness Consult date: 04/26/24 Consult reason: congestive heart failure History of present illness: This is a 63-year-old female patient of Dr. Mathew with past medical history of chronic systolic heart failure, cardiomyopathy most likely ischemic, NYHA class II CAD status post PCI to the left circumflex and LAD with ABILIO and residual ostial diagonal disease, COPD, tobacco use. We have been asked to evaluate the patient for CHF. Patient states that she has developed orthopnea with significant shortness of breath when laying flat but able to sit up without any shortness of breath. She denies having any wheezing. Blood pressure 152/83, heart rate 71, afebrile, pulse ox 100% on 2 L nasal cannula. Patient has been started on IV Solu-Medrol, IV heparin. Regarding heart failure medications, patient states that she tried to take Farxiga in the past but it was over $500 per month which she could not afford. EKG: Sinus rhythm with no acute ST-T wave changes. Chest x-ray: COPD and borderline heart size. Mild interstitial density. Consider mild CHF with pulmonary vascular congestion. No focal infiltrate or yaquelin pulmonary edema. Laboratory studies: WBC 9.7, hemoglobin 13.6. BUN 22 creatinine 0.78. Initial lactic acid 3.4 now 1.3. Troponin 0.047, 0.043, 0.034, 0.0 2 7. proBNP 12,600. Home cardiac medications: Aspirin 81 mg daily, atorvastatin 80 mg at bedtime, Plavix 75 mg daily, losartan 12.5 mg daily, Toprol-XL 50 mg daily, nitroglycerin as needed, Aldactone 50 mg daily. Cardiac catheterization performed on 03/26/[address] Chang revealed 95% OM 2 stenosis with CARLOS ALBERTO flow, 80 to 90% mid LAD stenosis and ostial diagonal disease. Normal LVEDP. Left circumflex nondominant. Proximal left circumflex has mild luminal irregularities. Small OM1 branch. Mid LCx has 99% subtotal stenosis before it bifurcates into OM 2 and AV groove branch. CARLOS ALBERTO II flow beyond occlusion. Patient subsequently underwent successful stenting of the LAD and mid left circumflex. Echocardiogram performed on 03/27/2024 revealed EF of 25 to 30%, moderate mitral regurgitation, normal pulmonary artery systolic pressure. Review Of Systems: At the time of my exam: CONSTITUTIONAL: Denies fever or chills. HEENT: Denies blurred vision, vision changes, or eye pain. Denies hemoptysis CARDIOVASCULAR: Denies chest pain. Reports orthopnea. Denies PND. Denies palpitations RESPIRATORY: Denies shortness of breath. Denies dyspnea while sitting. GASTROINTESTINAL: Denies abdominal pain. Denies nausea or vomiting. HEMATOLOGIC: Denies bleeding disorders. GENITOURINARY: Denies any blood in urine. SKIN: Denies puritis. Denies rash. Physical examination: Gen: This is a 63-year-old female in no acute distress. No respiratory distress noted. VS: reviewed HEENT: Head is atraumatic, normocephalic. Pupils equal, round. Sclerae is anicteric. NECK: Supple. No JVD. LUNGS: Clear to auscultation. No wheezes or rhonchi. No intercostal retractions. HEART: Regular rate and rhythm. No murmur. ABDOMEN: Soft No tenderness. EXTREMITIES: No pedal edema. No calf tenderness. NEUROLOGICAL: Patient is awake, alert and oriented x3. Assessment: Elevated troponins not indicative of myocardial injury Acute on chronic systolic heart failure Ischemic cardiomyopathy Coronary artery disease with recent stenting of the circumflex and LAD 03/27/2024 COPD Tobacco use and dependence Plan: Resume patient's home cardiac medications with the following changes Discontinue losartan and plan to start Entresto 24-26 mg this evening Discontinue heparin drip Discontinue IV steroids Increase Aldactone to 50 mg daily [place] has been checked on Entresto and patient cannot afford at $4.45 per month Further recommendations to follow based upon clinical course Smoking cessation. Patient will be provided with the [place] quit line information at discharge. Thank you kindly for this consultation. Nurse practitioner note has been reviewed, I agree with documented findings and plan of care. Patient was seen and examined. Past Medical History Past Medical History: GERD/Reflux, Hypertension, Osteoarthritis (OA) Additional Past Medical History / Comment(s): DDD, chronic back pain, scoliosis History of Any Multi-Drug Resistant Organisms: None Reported Past Surgical History: Cholecystectomy, Joint Replacement Additional Past Surgical History / Comment(s): ORIF left ankle, exploratory laparotomy,martin hip replacement Past Anesthesia/Blood Transfusion Reactions: No Reported Reaction Date of Last Stent Placement:: 03/30/2024 Past Psychological History: No Psychological Hx Reported Smoking Status: Current every day smoker Past Alcohol Use History: None Reported Past Drug Use History: None Reported - Past Family History Mother History Unknown: Yes Family Medical History: No Reported History Father History Unknown: Yes Family Medical History: No Reported History Medications and Allergies Home Medications Medication Instructions Recorded Confirmed Type Albuterol Inhaler [Ventolin Hfa 1 - 2 puff INHALATION RT-Q6H PRN 03/27/24 04/25/24 History Inhaler] Escitalopram [Lexapro] 10 mg PO DAILY 03/27/24 04/25/24 History Aspirin 81 mg PO DAILY tab 03/31/24 04/25/24 Rx Atorvastatin [Lipitor] 80 mg PO HS #90 tab 03/31/24 04/25/24 Rx Clopidogrel [Plavix] 75 mg PO DAILY #90 tab 03/31/24 04/25/24 Rx Losartan [Cozaar] 12.5 mg PO DAILY #45 tab 03/31/24 04/25/24 Rx Metoprolol Succinate (ER) [Toprol 50 mg PO DAILY #90 tab 03/31/24 04/25/24 Rx XL] Spironolactone [Aldactone] 25 mg PO DAILY #90 tab 03/31/24 04/25/24 Rx Nicotine 21Mg/24Hr Patch [Habitrol] 1 patch TRANSDERM DAILY 04/25/24 04/25/24 History Nitroglycerin Sl Tabs [Nitrostat] 0.4 mg SL Q5M PRN 04/25/24 04/25/24 History Sacubitril/Valsartan [Entresto 24 1 each PO BID #60 tablet 04/26/24 Rx mg-26 mg Tablet] Allergies Allergy/AdvReac Type Severity Reaction Status Date / Time pravastatin Allergy Unknown Panic Verified 04/25/24 08:51 attacks codeine Allergy Itching, Verified 04/25/24 08:51 rash sulfamethoxazole Allergy throat Verified 04/25/24 08:51 [From Bactrim] tight trimethoprim [From Bactrim] Allergy throat Verified 04/25/24 08:51 tight Physical Exam Vitals: Vital Signs Temp Pulse Pulse Resp BP BP Pulse Ox 04/26/24 08:32 98.1 F 71 16 152/83 100 04/26/24 04:00 97.6 F 68 18 155/87 97 04/26/24 01:50 59 L 18 04/25/24 23:59 97.8 F 59 L 18 143/83 97 04/25/24 22:30 62 18 04/25/24 22:26 97.9 F 62 18 159/76 100 04/25/24 22:07 68 18 137/77 100 04/25/24 19:52 98.6 F 62 18 142/94 99 04/25/24 16:29 64 18 147/95 94 L 04/25/24 12:00 72 18 144/98 95 04/25/24 11:51 58 L 04/25/24 11:33 53 L 99 04/25/24 10:32 100 04/25/24 10:07 64 16 148/90 97 Intake and Output 04/25/24 04/26/24 04/26/24 22:59 06:59 14:59 Intake Total 66.16 10 268.01 Output Total 200 Balance 66.16 -190 268.01 Intake: IV 10 0.9 10 Intake, IV Titration 66.16 150.01 Amount Heparin Sod,Pork in 0.45% 66.16 150.01 NaCl 25,000 unit In 0.45 % NaCl 1 250ml.bag @ 12 UNITS/KG/HR 8.981 mls/hr IV .Q24H [facility] Rx#: [id number] Oral 118 Output: Urine 200 Other: # Voids 1 Weight 74.843 kg 67.6 kg Results 04/26/24 03:49 04/26/24 03:49 Cardiac Enzymes 04/25/24 04/25/24 04/25/24 Range/Units 09:04 11:21 14:11 AST (14-36) U/L Troponin I 0.047 H* 0.043 H* 0.034 (0.000-0.034) ng/mL 04/25/24 04/26/24 Range/Units 17:06 03:49 AST 23 (14-36) U/L Troponin I 0.027 (0.000-0.034) ng/mL Coagulation 04/25/24 04/25/24 04/25/24 Range/Units 11:26 14:35 17:06 PT 11.8 (10.0-12.5) sec APTT 40.0 H 38.5 H (22.0-30.0) sec 04/26/24 04/26/24 Range/Units 00:06 03:49 PT (10.0-12.5) sec APTT 47.3 H 49.1 H (22.0-30.0) sec CBC 04/26/24 Range/Units 03:49 WBC 9.7 (3.8-10.6) k/uL RBC 4.44 (3.80-5.40) m/uL Hgb 13.6 (11.4-16.0) gm/dL Hct 43.9 (34.0-46.0) % Plt Count 229 (150-450) k/uL Comprehensive Metabolic Panel 04/26/24 Range/Units 03:49 Sodium 143 (137-145) mmol/L Potassium 3.9 (3.5-5.1) mmol/L Chloride 113 H (98-107) mmol/L Carbon Dioxide 21 L (22-30) mmol/L BUN 22 H (7-17) mg/dL Creatinine 0.78 (0.52-1.04) mg/dL Glucose 126 H (74-99) mg/dL Calcium 9.3 (8.4-10.2) mg/dL AST 23 (14-36) U/L ALT 21 (4-34) U/L Alkaline Phosphatase 109 (38-126) U/L Total Protein 6.9 (6.3-8.2) g/dL Albumin 3.9 (3.5-5.0) g/dL Current Medications Generic Name Dose Route Start Last Admin Trade Name Freq PRN Reason Stop Dose Admin Albuterol Sulfate 2.5 mg 04/25/24 12:00 04/26/24 08:14 Albuterol Nebulized 2.5 Mg/3 Ml INHALATION Not Given RT-Q4H [facility] Aspirin 81 mg 04/26/24 09:00 04/26/24 08:42 Aspirin 81 Mg PO 81 mg DAILY [facility] Administration Atorvastatin Calcium 80 mg 04/25/24 21:00 04/25/24 20:23 Atorvastatin 80 Mg Tab PO 80 mg HS [facility] Administration Clopidogrel Bisulfate 75 mg 04/25/24 16:00 04/26/24 08:42 Clopidogrel 75 Mg Tab PO 75 mg DAILY [facility] Administration Sodium Chloride 1,000 mls @ 20 mls/hr 04/25/24 10:45 04/26/24 08:47 Saline 0.9% IV Not Given .Q24H [facility] Insulin Aspart 0 unit 07/16/24 07:30 04/26/24 06:02 Insulin Aspart (Novolog) 100 Unit/Ml Vial SQ Not Given ACHS [facility] Protocol Methylprednisolone Sodium Succinate 40 mg 04/26/24 08:00 04/26/24 08:41 Methylprednisolone Sod Succi 40 Mg/Ml 1 Ml Vial IV 40 mg Q8HR [facility] Administration Metoprolol Succinate 50 mg 04/27/24 12:00 Metoprolol Succinate (Er) 50 Mg Tab.Er.24h PO 1200 [facility] Morphine Sulfate 4 mg 04/25/24 10:37 Morphine Sulfate 4 Mg/Ml Syringe IV Q4HR PRN Severe Pain (Scale 7 to 10) &* Naloxone HCl 0.2 mg 04/25/24 10:37 Naloxone 0.4 Mg/Ml 1 Ml Vial IVP Q2M PRN Opioid Reversal Nitroglycerin 0.4 mg 04/25/24 10:37 Nitroglycerin Sl Tabs 0.4 Mg Tab SUBLINGUAL Q5M PRN Chest Pain Sacubitril/Valsartan 1 each 04/26/24 21:00 Sacubitril/Valsartan 24 Mg-26 Mg Tablet PO BID [facility] Spironolactone 25 mg 04/26/24 09:00 04/26/24 08:41 Spironolactone 25 Mg Tab PO 25 mg DAILY [facility] Administration Intake and Output 04/25/24 04/26/24 04/26/24 22:59 06:59 14:59 Intake Total 66.16 10 268.01 Output Total 200 Balance 66.16 -190 268.01 Intake: IV 10 0.9 10 Intake, IV Titration 66.16 150.01 Amount Heparin Sod,Pork in 0.45% 66.16 150.01 NaCl 25,000 unit In 0.45 % NaCl 1 250ml.bag @ 12 UNITS/KG/HR 8.981 mls/hr IV .Q24H [facility] Rx#: [id number] Oral 118 Output: Urine 200 Other: # Voids 1 Weight 74.843 kg 67.6 kg 04/26/24 03:49 04/26/24 03:49
[2024-04-26 12:26] LABS: Chol/HDL Ratio 2.89 Ratio; LDL Cholesterol,Calculated 74.1 mg/dL (0.0-131.0); VLDL Calculation 8.98 mg/dL (5.00-40.00)
--- NOTE | 2024-04-26 13:45 | P.PN ---
Subjective Progress Note Date: 04/26/24 Principal diagnosis: Shortness of breath. Pulmonary consult dated April 25, 2024. 63-year-old female who looks much older than her stated age, went to the emergency department on April 25, at about 4 to 9 AM. The patient came in with complaints of shortness of breath, which apparently have been going on for few days prior to admission. Her shortness of breath was much worse with exertion. The patient denies any fever or chills. She also denies any chest pain or chest discomfort. She does admit to a dry nonproductive cough. No nausea, vomiting, diarrhea, or abdominal pain. The patient had a very elevated N-terminal proBNP of 12,600. Her troponins were elevated 0.047 and 0.043. The patient was on 2 L of oxygen, and receiving IV heparin as well. She smoked for at least 50 years. The patient has a history of hypertension, osteoarthritis, gastroesophageal reflux disease, chronic back pain, scoliosis, and degenerative disc disease. The patient does continue to smoke cigarettes. Current labs include a white count of 6.8, hemoglobin 13.7, hematocrit 44.1, and a normal platelet count. Coagulation studies are normal. Sodium 140, potassium 4.7, chlorides 114, CO2 15, anion gap 11, BUN 24, creatinine 0.79. Lactic acid was 2.4. AST was 41. Troponins were 0.047 and 0.043. As mentioned above N-terminal proBNP was quite elevated at 12,600. Chest x-ray is consistent with COPD, with mild pulmonary vascular congestion. Progress note dated April 26, 2024. 63-year-old female seen in consultation yesterday, in the emergency department. Today, she is seen in room 380. The patient came into the hospital with complaints of increasing shortness of breath for a few days prior to admission. Addition, the patient complained of a dry nonproductive cough. She had a very elevated N-terminal proBNP of 12,600. The patient is currently on 2 L of oxygen. No IV fluids. Current labs include a white count 9.7, hemoglobin 13.6, hematocrit 43.9, platelet count 2 29,000. PTT is 49.1. Sodium 143, potassium 3.9, chlorides 113, CO2 21, BUN 22, creatinine 0.78. Glucose is 132. The rest of the comprehensive metabolic profile, for the most part, is within normal range. Objective - Vital Signs Vital signs: Vital Signs Temp 98.1 F 04/26/24 08:32 Pulse 79 04/26/24 11:11 Resp 16 04/26/24 11:11 BP 156/91 04/26/24 11:11 Pulse Ox 99 04/26/24 11:11 FiO2 Intake & Output 04/25/24 04/26/24 04/26/24 18:59 06:59 18:59 Intake Total 66.16 10 386.01 Output Total 200 Balance 66.16 -190 386.01 Weight 74.843 kg 67.6 kg Intake: IV 10 0.9 10 Intake, IV Titration 66.16 150.01 Amount Heparin Sod,Pork in 0.45% 66.16 150.01 NaCl 25,000 unit In 0.45 % NaCl 1 250ml.bag @ 12 UNITS/KG/HR 8.981 mls/hr IV .Q24H [facility] Rx#: [id number] Oral 236 Output: Urine 200 Other: Voiding Method Toilet # Voids 1 - Exam No respiratory distress, oriented x 3. HEENT examination is grossly unremarkable. Mucous membranes are moist. No oral lesions. Neck supple. Full range of motion. No adenopathy thyromegaly or neck vein distention. Cardiovascular examination reveals regular rhythm rate. S1-S2 normal. No S3 or S4. No discernible murmur noted. Heart sounds are distant. Heart rate 79 bpm. Lungs reveal mostly clear breath sounds. Minimal basilar crackles. No wheezes or rhonchi. Room air saturation is 99%. Abdomen soft bowel sounds are heard. No masses or tenderness. Extremities are intact. No cyanosis or clubbing. Trace edema. Skin is without rash or lesion. Neurologic examination is brief but nonfocal. - Labs CBC & Chem 7: 04/26/24 03:49 04/26/24 03:49 Labs: Abnormal Lab Results - Last 24 Hours (Table) 04/25/24 04/25/24 04/25/24 Range/Units 14:11 14:35 17:06 Neutrophils # (1.3-7.7) k/uL Lymphocytes # (1.0-4.8) k/uL APTT 40.0 H 38.5 H (22.0-30.0) sec Chloride (98-107) mmol/L Carbon Dioxide (22-30) mmol/L BUN (7-17) mg/dL Glucose (74-99) mg/dL POC Glucose (mg/dL) (70-110) mg/dL Plasma Lactic Acid John 2.5 H* (0.7-2.0) mmol/L Phosphorus (2.5-4.5) mg/dL 04/25/24 04/25/24 04/26/24 Range/Units 17:06 20:59 00:06 Neutrophils # (1.3-7.7) k/uL Lymphocytes # (1.0-4.8) k/uL APTT 47.3 H (22.0-30.0) sec Chloride (98-107) mmol/L Carbon Dioxide (22-30) mmol/L BUN (7-17) mg/dL Glucose (74-99) mg/dL POC Glucose (mg/dL) (70-110) mg/dL Plasma Lactic Acid John 2.5 H* 3.4 H* (0.7-2.0) mmol/L Phosphorus (2.5-4.5) mg/dL 04/26/24 04/26/24 04/26/24 Range/Units 00:06 03:49 03:49 Neutrophils # 8.5 H (1.3-7.7) k/uL Lymphocytes # 0.9 L (1.0-4.8) k/uL APTT (22.0-30.0) sec Chloride 113 H (98-107) mmol/L Carbon Dioxide 21 L (22-30) mmol/L BUN 22 H (7-17) mg/dL Glucose 126 H (74-99) mg/dL POC Glucose (mg/dL) (70-110) mg/dL Plasma Lactic Acid John 2.8 H* (0.7-2.0) mmol/L Phosphorus 1.7 L (2.5-4.5) mg/dL 04/26/24 04/26/24 04/26/24 Range/Units 03:49 05:56 11:37 Neutrophils # (1.3-7.7) k/uL Lymphocytes # (1.0-4.8) k/uL APTT 49.1 H (22.0-30.0) sec Chloride (98-107) mmol/L Carbon Dioxide (22-30) mmol/L BUN (7-17) mg/dL Glucose (74-99) mg/dL POC Glucose (mg/dL) 116 H 132 H (70-110) mg/dL Plasma Lactic Acid John (0.7-2.0) mmol/L Phosphorus (2.5-4.5) mg/dL Assessment and Plan Assessment: Acute hypoxemic respiratory failure, likely multifactorial, in part related to fluid overload/CHF, as well as probable COPD exacerbation. Rule out non-ST segment elevation myocardial infarction. Ongoing and heavy tobacco use. History of hyperlipidemia. History of diabetes mellitus. History of hypertension. History of osteoarthritis. History of gastroesophageal reflux disease. History of degenerative disc disease. Plan: Plan dated April 25, 2024. The patient is seen today in the emergency department, room 25. The patient presented with increasing shortness of breath, with an elevated N-terminal proB [employer] of nearly 13,000, and modestly elevated troponin levels. The patient was seen, and placed on IV heparin. The patient also was placed on 2 L of oxygen. She does not take any inhalers, or home oxygen. She has been smoking for at least 50 years. Labs, x-rays, medications are reviewed. We will make sure that we treat the, pulmonary component of her respiratory difficulty. She is counseled about the importance of smoking cessation. Plan dated April 26, 2024. The patient was seen in the emergency room yesterday. Today she is seen in room 380. The patient is currently on room air. She was initially on 2 L. Saturations are nearly 100%. She is not receiving any IV fluids. She william salgado was seen by cardiology. Labs, x-rays, medications are reviewed. The patient's overall prognosis remains guarded. The patient does continue to smoke cigarettes, she is counseled about the importance of smoking cessation. Time with Patient: Less than 30
--- NOTE | 2024-04-26 15:24 | CA ---
Transthoracic Echo Report Name: Pamela Castro Age: 63 Gender: F : 1960 Exam Date: 04/26/2024 07:49 Exam Location: [facility] Ht (in): 63 Wt (lb): 165 Ordering Physician: Elijah Lynn DO Attending/Referring Phys: [id number] [employer] Sandra Hall RDCS Procedure CPT: Indications: chf Cardiac Hx: Technical Quality: Technically difficult study Contrast 1: Definity Total Dose (mL): 2 Contrast 2: Total Dose (mL): MEASUREMENTS (Male / Female) Normal Values 2D ECHO LV Diastolic Volume MOD BP 198.5 cm??? 67 - 155 / 56 - 104 cm??? LV Systolic Volume MOD BP 156.7 cm??? 22 - 58 / 19 - 49 cm??? LV Ejection Fraction MOD BP 21.1 % >= 55 % LV Cardiac Index MOD BP 1878.8 cm???/min???m??? LV Diastolic Volume MOD 4C 188.8 cm??? LV Systolic Volume MOD 4C 145.5 cm??? LV Ejection Fraction MOD 4C 23.0 % LV Cardiac Index MOD 4C 1947.2 cm???/min???m??? LV Diastolic Length 4C 9.2 cm LV Systolic Length 4C 8.3 cm LV Diastolic Volume MOD 2C 204.3 cm??? LV Systolic Volume MOD 2C 158.0 cm??? LV Ejection Fraction MOD 2C 22.7 % LV Cardiac Index MOD 2C 2081.3 cm???/min???m??? LV Diastolic Length 2C 8.9 cm LV Systolic Length 2C 7.7 cm FINDINGS Left Ventricle Left ventricular ejection fraction is estimated at 20-25 %. Severely increased left ventricular diastolic volume. Severely increased left ventricular systolic volume. Severely decreased left ventricular ejection fraction with regional variation. Right Ventricle Normal right ventricular size and function. Unable to estimate the right ventricular systolic pressure. Right Atrium Normal right atrial size. Left Atrium Severe left atrial dilatation. Mitral Valve Mitral valve thickened. No evidence for mitral valve prolapse. No mitral stenosis. Mild mitral regurgitation. Aortic Valve Trileaflet aortic valve. Aortic valve sclerosis. No aortic stenosis. Trace aortic regurgitation. Tricuspid Valve Structurally normal tricuspid valve. Trace tricuspid regurgitation. No tricuspid stenosis. Pulmonic Valve Pulmonic valve not well visualized. Pericardium No pericardial effusion. Aorta Aortic root and proximal ascending aorta not well visualized. CONCLUSIONS Left ventricular ejection fraction 20-25% Mild mitral regurgitation Trace aortic regurgitation Trace tricuspid regurgitation Previewed by: Dr. Dharmesh Christianson DO (Electronically Signed) Final Date: 26 April 2024 15:23
[2024-04-26 16:48] LABS: Glucose,Whole Blood 135 mg/dL (70-110)
[2024-04-26] MEDS: SACUBITRIL/VALSARTAN 24 MG-26 MG TABLET PO SCH (19:55)
[2024-04-26 19:57] LABS: Glucose,Whole Blood 124 mg/dL (70-110)
--- NOTE | 2024-04-27 00:19 | P.PN ---
Subjective Progress Note Date: 04/26/24 Patient is a 63-year-old female with known history of hypertension, chronic back pain, scoliosis, GERD, currently everyday smoker and recent cardiac catheterization on 03/30/2024 s/p stenting of mid LAD and mid left circumflex artery. Patient presents to ER due to complaints of shortness of breath and ex ertional dyspnea. Patient also hypoxic at home. O does have cough without increased production. No chest pain. Denies any fever or chills. No nausea vomiting abdominal pain or diarrhea. On admission chest x-ray showed COPD and borderline heart size. Mild interstitial density. Consider mild CHF with pulmonary vascular congestion. No focal infiltrate or flank pulmonary edema. EKG showed sinus bradycardia with sinus arrhythmia. Laboratory data showed WBC 6.8 hemoglobin 13.7 and platelets 179, MCV 100.6 Sodium 140 potassium 4.7 chloride 114 bicarb is 15 BUN 24 and creatinine 0.79, lactic acid 2.4 troponin 0.047, 0.043 and 0.034 proBNP 12,600. AST 40 ALT 24 and alk phos 108 and albumin 3.9.Patient was given a dose of Lasix 40 mg IV x 1 and also methylprednisolone 1 to 20 mg IV x 1. 04/26/2024 Patient is currently resting in the bed. Awake alert and oriented x 2. Breathing status much improved. No complaints of chest pain. Does have some dry cough. Oxygen titrated down to room air. Patient has been afebrile. Laboratory data showed WBC 9.7 hemoglobin 13.6 and platelets 229 sodium 143 potassium 3.9 chloride 113 bicarb is 21 BUN 22 and creatinine 0.78 and blood sugar is 126. Phosphorus 1.7 liver Pa not elevated. Patient was started on Entresto and Aldactone dose increased. Cardiology and pulmonary is on board.. Current medications reviewed. Objective - Vital Signs Vital signs: Vital Signs Temp 98.1 F 04/26/24 22:29 Pulse 73 04/26/24 22:29 Resp 16 04/26/24 22:29 BP 133/69 04/26/24 22:29 Pulse Ox 96 04/26/24 22:29 FiO2 Intake & Output 04/26/24 04/26/24 04/27/24 06:59 18:59 06:59 Intake Total 10 386.01 Output Total 200 Balance -190 386.01 Weight 67.6 kg Intake: IV 10 0.9 10 Intake, IV Titration 150.01 Amount Heparin Sod,Pork in 0.45% 150.01 NaCl 25,000 unit In 0.45 % NaCl 1 250ml.bag @ 12 UNITS/KG/HR 8.981 mls/hr IV .Q24H [facility] Rx#: [id number] Oral 236 Output: Urine 200 Other: Voiding Method Toilet Toilet # Voids 1 2 1 - Exam PHYSICAL EXAMINATION: Patient is lying in the bed comfortably, no acute distress, awake alert and oriented.. HEENT: Normocephalic. Neck is supple. Pupils reactive. Nostrils clear. Oral cavity is moist. Neck reveals no JVD, carotid bruits, or thyromegaly. CHEST EXAMINATION: Trachea is central. Symmetrical expansion. Minimal left basilar crackles. No wheezing. Lung chu clear to auscultation and percussion. CARDIAC: Normal S1, S2 with no gallops. No murmurs ABDOMEN: Soft. Bowel sounds normal. No organomegaly. No abdominal bruits. Extremities: reveal no edema. No clubbing or cyanosis Neurologically awake, alert, oriented x3 with well-coordinated movements. No focal deficits noted Skin: No rash or skin lesions. Psychiatric: Coperative. Nonsuicidal Musculoskeletal: No joint swelling or deformity. Normal range of motion. - Labs CBC & Chem 7: 04/26/24 03:49 04/26/24 03:49 Labs: Abnormal Lab Results - Last 24 Hours (Table) 04/26/24 04/26/24 04/26/24 Range/Units 00:06 00:06 03:49 Neutrophils # 8.5 H (1.3-7.7) k/uL Lymphocytes # 0.9 L (1.0-4.8) k/uL APTT 47.3 H (22.0-30.0) sec Chloride (98-107) mmol/L Carbon Dioxide (22-30) mmol/L BUN (7-17) mg/dL Glucose (74-99) mg/dL POC Glucose (mg/dL) (70-110) mg/dL Plasma Lactic Acid John 2.8 H* (0.7-2.0) mmol/L Phosphorus (2.5-4.5) mg/dL 07/16/24 07/16/24 07/16/24 Range/Units 03:49 03:49 05:56 Neutrophils # (1.3-7.7) k/uL Lymphocytes # (1.0-4.8) k/uL APTT 49.1 H (22.0-30.0) sec Chloride 113 H (98-107) mmol/L Carbon Dioxide 21 L (22-30) mmol/L BUN 22 H (7-17) mg/dL Glucose 126 H (74-99) mg/dL POC Glucose (mg/dL) 116 H (70-110) mg/dL Plasma Lactic Acid John (0.7-2.0) mmol/L Phosphorus 1.7 L (2.5-4.5) mg/dL 04/26/24 04/26/24 04/26/24 Range/Units 11:37 16:47 19:56 Neutrophils # (1.3-7.7) k/uL Lymphocytes # (1.0-4.8) k/uL APTT (22.0-30.0) sec Chloride (98-107) mmol/L Carbon Dioxide (22-30) mmol/L BUN (7-17) mg/dL Glucose (74-99) mg/dL POC Glucose (mg/dL) 132 H 135 H 124 H (70-110) mg/dL Plasma Lactic Acid John (0.7-2.0) mmol/L Phosphorus (2.5-4.5) mg/dL Assessment and Plan Assessment: Acute hypoxic respiratory failure secondary to CHF/volume overload. Elevated proBNP and vascular congestion on chest x-ray. Patient was requiring 2 L oxygen via nasal cannula. Titrated down to room air. Acute on chronic CHF with systolic dysfunction ejection fraction 25% Probable acute COPD exacerbation Coronary artery disease history of recent stent placement in March 2024 Elevated troponin level Uncontrolled hypertension Hyperlipidemia Diabetes type 2 [id number] Osteoarthritis GERD Ongoing nicotine addiction GI and DVT prophylaxis Plan: Patient was given Lasix 40 mg x 1. Continue with telemetry. Heparin drip has been discontinued. Titrate down oxygen to room air.. Started back on metoprolol and losartan. Losartan changed to Entresto. Aldactone dose increased to 50 mg daily. Continue with aspirin Plavix and statins. Continue albuterol inhalation changed to as needed. IV Solu-Medrol has been discontinued. Pulmonary and cardiology is on board. Anticipate discharge in next 24 hours. Time with Patient: Greater than 30
[2024-04-27] MEDS ORDERED: ALBUTEROL NEBULIZED 2.5 MG/3 ML INHALATION PRN (00:21)
[2024-04-27 06:03] LABS: Glucose,Whole Blood 97 mg/dL (70-110)
[2024-04-27 08:46] LABS: Basophils % (A) 0 %; Eosinophils # (A) 0.1 k/uL (0-0.7); Eosinophils % (A) 0 %; HCT 47.8 % (34.0-46.0); HGB 14.7 gm/dL (11.4-16.0); Lymphocytes # (A) 2.5 k/uL (1.0-4.8); Lymphocytes % (A) 17 %; MCH 31.2 pg (25.0-35.0); MCHC 30.7 g/dL (31.0-37.0); MCV 101.5 fL (80.0-100.0); Macrocytosis Slight; Mean Platelet Volume 8.7; Monocytes # (A) 0.8 k/uL (0-1.0); Monocytes % (A) 5 %; Neutrophils # (A) 11.5 k/uL (1.3-7.7); Neutrophils % (A) 77 %; Platelet Count 244 k/uL (150-450); RBC 4.71 m/uL (3.80-5.40); RDW 13.8 % (11.5-15.5)
[2024-04-27 09:03] VITALS: RESP 18
[2024-04-27] MEDS: SPIRONOLACTONE 25 MG TAB PO SCH (09:04)
[2024-04-27] MEDS: FAMOTIDINE 20 MG/2 ML VIAL IV SCH (09:05)
[2024-04-27] MEDS: HEPARIN SODIUM,PORCINE 5,000 UNIT/ML 1 ML VIAL SQ SCH (09:05)
[2024-04-27 09:14] LABS: African American GFR (CKD) 83 (>60 ml/min/1.73 sqM); Anion Gap 8 mmol/L; Blood Urea Nitrogen 27 mg/dL (7-17); Calcium 9.3 mg/dL (8.4-10.2); Carbon Dioxide 23 mmol/L (22-30); Chloride 112 mmol/L (98-107); Glucose 96 mg/dL (74-99); Non-African American GFR(CKD) 72 (>60 ml/min/1.73 sqM); Potassium 3.6 mmol/L (3.5-5.1); Sodium 143 mmol/L (137-145)
--- NOTE | 2024-04-27 11:44 | P.PN ---
Subjective Progress Note Date: 04/27/24 Consult reason: congestive heart failure History of present illness: This is a 63-year-old female patient of Dr. Mathew with past medical history of chronic systolic heart failure, cardiomyopathy most likely ischemic, NYHA class II CAD status post PCI to the left circumflex and LAD with ABILIO and residual ostial diagonal disease, COPD, tobacco use. We have been asked to evaluate the patient for CHF. Patient states that she has developed orthopnea with significant shortness of breath when laying flat but able to sit up without any shortness of breath. She denies having any wheezing. Blood pressure 152/83, heart rate 71, afebrile, pulse ox 100% on 2 L nasal cannula. Patient has been started on IV Solu-Medrol, IV heparin. Regarding heart failure medications, patient states that she tried to take Farxiga in the past but it was over $500 per month which she could not afford. EKG: Sinus rhythm with no acute ST-T wave changes. Chest x-ray: COPD and borderline heart size. Mild interstitial density. Consider mild CHF with pulmonary vascular congestion. No focal infiltrate or yaquelin pulmonary edema. Laboratory studies: WBC 9.7, hemoglobin 13.6. BUN 22 creatinine 0.78. Initial lactic acid 3.4 now 1.3. Troponin 0.047, 0.043, 0.034, 0.0 2 7. proBNP 12,600. Home cardiac medications: Aspirin 81 mg daily, atorvastatin 80 mg at bedtime, Plavix 75 mg daily, losartan 12.5 mg daily, Toprol-XL 50 mg daily, nitroglycerin as needed, Aldactone 50 mg daily. Cardiac catheterization performed on 03/26/[address] Chang revealed 95% OM 2 stenosis with CARLOS ALBERTO flow, 80 to 90% mid LAD stenosis and ostial diagonal disease. Normal LVEDP. Left circumflex nondominant. Proximal left circumflex has mild luminal irregularities. Small OM1 branch. Mid LCx has 99% subtotal stenosis before it bifurcates into OM 2 and AV groove branch. CARLOS ALBERTO II flow beyond occlusion. Patient subsequently underwent successful stenting of the LAD and mid left circumflex. Echocardiogram performed on 03/27/2024 revealed EF of 25 to 30%, moderate mitral regurgitation, normal pulmonary artery systolic pressure. 04/27 Yesterday, losartan was discontinued and patient was started on Entresto last evening. Heparin drip was also discontinued as well as IV steroids. Aldactone was increased to 50 mg daily. Entresto goodman was checked and is affordable for the patient. Blood pressure 144/86, heart rate 74, pulse ox 96% on room air. Repeat blood work reveals WBC 15, hemoglobin 14.7. Sodium 143, potassium 3.6, BUN 27 creatinine 0.86. Physical examination: Gen: This is a 63-year-old female in no acute distress. No respiratory distress noted. VS: reviewed HEENT: Head is atraumatic, normocephalic. Pupils equal, round. Sclerae is anicteric. NECK: Supple. No JVD. LUNGS: Diminished breath sounds, no wheezing. No intercostal retractions. HEART: Regular rate and rhythm. No murmur. ABDOMEN: Soft No tenderness. EXTREMITIES: No pedal edema. No calf tenderness. NEUROLOGICAL: Patient is awake, alert and oriented x3. Assessment: Elevated troponins not indicative of myocardial injury Acute on chronic systolic heart failure Ischemic cardiomyopathy Coronary artery disease with recent stenting of the circumflex and LAD 03/27/2024 COPD Tobacco use and dependence Plan: Continue patient's home cardiac medications with the following changes Continue Entresto 24-26 mg twice daily Continue increased dose of Aldactone 50 mg daily Goodman has been checked on [employer] and patient can afford at $4.45 per month Further recommendations to follow based upon clinical course Smoking cessation. Patient will be provided with the [place] quit line information at discharge. Plan to monitor patient for 1 more night and discharge home tomorrow. Nurse practitioner note has been reviewed, I agree with documented findings and plan of care. Patient was seen and examined. Objective - Vital Signs Vital signs: Vital Signs Temp 97.7 F 04/27/24 03:08 Pulse 74 04/27/24 09:01 Resp 18 04/27/24 09:01 BP 144/86 04/27/24 09:01 Pulse Ox 96 04/27/24 09:01 FiO2 21 04/27/24 08:20 Intake & Output 04/26/24 04/27/24 04/27/24 18:59 06:59 18:59 Intake Total 386.01 Balance 386.01 Weight 67 kg Intake: Intake, IV Titration 150.01 Amount Heparin Sod,Pork in 0.45% 150.01 NaCl 25,000 unit In 0.45 % NaCl 1 250ml.bag @ 12 UNITS/KG/HR 8.981 mls/hr IV .Q24H [facility] Rx#: [id number] Oral 236 Other: Voiding Method Toilet Toilet # Voids 2 1 - Labs CBC & Chem 7: 04/27/24 07:53 04/27/24 07:53 Labs: Abnormal Lab Results - Last 24 Hours (Table) 04/26/24 04/26/24 04/26/24 Range/Units 11:37 16:47 19:56 WBC (3.8-10.6) k/uL Hct (34.0-46.0) % MCV (80.0-100.0) fL MCHC (31.0-37.0) g/dL Neutrophils # (1.3-7.7) k/uL Chloride (98-107) mmol/L BUN (7-17) mg/dL POC Glucose (mg/dL) 132 H 135 H 124 H (70-110) mg/dL 04/27/24 04/27/24 Range/Units 07:53 07:53 WBC 15.0 H (3.8-10.6) k/uL Hct 47.8 H (34.0-46.0) % MCV 101.5 H (80.0-100.0) fL MCHC 30.7 L (31.0-37.0) g/dL Neutrophils # 11.5 H (1.3-7.7) k/uL Chloride 112 H (98-107) mmol/L BUN 27 H (7-17) mg/dL POC Glucose (mg/dL) (70-110) mg/dL
[2024-04-27 11:54] LABS: Glucose,Whole Blood 79 mg/dL (70-110)
[2024-04-27 12:33] VITALS: BP 145/86; PULSE 94; TEMP 97.6
[2024-04-27] MEDS: METOPROLOL SUCCINATE (ER) 50 MG TAB.ER.24H PO SCH (12:34)
--- NOTE | 2024-04-27 22:06 | PN ---
PROGRESS NOTE DATE OF SERVICE: 04/27/2024 SUBJECTIVE: A 63-year-old female seen in consultation 2 days ago. She was admitted with a diagnosis of increasing shortness of breath, for few days prior to admission. In addition, she had a dry nonproductive cough. Her N-terminal proBNP was quite elevated at 12,600. Currently, the patient is on room air. She is not receiving any IV fluids. The patient feels much better and is hoping to be discharged. She denies any shortness of breath, cough, wheezing, chest tightness, or phlegm production. She also denies any chest pain or pressure. CURRENT LABORATORY DATA: Includes a white count 15, hemoglobin is 14.7, hematocrit 47.8, and a normal platelet count. Sodium 143, potassium 3.6, chloride 112, CO2 of 23, BUN 27, and creatinine 0.86. Glucose is 79. Calcium is 9.3. No recent chest x-ray to report. PHYSICAL EXAMINATION: VITAL SIGNS: Current vital signs include temperature 97.6, heart rate 94, respiratory rate 18, blood pressure 145/86, and room-air saturation 98%. GENERAL: She appears in no acute distress. No respiratory distress. HEENT: Grossly unremarkable. NECK: Supple. Full range of motion. No adenopathy. Neck veins are flat. CARDIOVASCULAR: Reveals regular rhythm and rate. S1, S2 normal. Heart rate 78. No discernible murmur noted. LUNGS: Reveal mostly clear. Minimal rhonchi. No wheezes or crackles. Breath sounds equal. ABDOMEN: Soft. Bowel sounds are heard. No masses or tenderness. EXTREMITIES: Intact. No cyanosis, clubbing, or edema. SKIN: Without rash. NEUROLOGIC: Brief, but nonfocal. ASSESSMENT: 1. Acute hypoxemic respiratory failure, likely multifactorial, in part related to mild fluid overload/congestive heart failure as well as chronic obstructive pulmonary disease exacerbation. 2. Rule out non ST-segment elevation myocardial infarction. 3. Ongoing and heavy tobacco use. 4. History of hyperlipidemia. 5. History of diabetes mellitus. 6. History of hypertension. 7. Osteoarthritis. 8. Gastroesophageal reflux disease. 9. History of degenerative disk disease. PLAN: The patient is doing well. She would like to be discharged home. Her breathing is much improved. She is currently on room air. She is not receiving any IV fluids. Labs, x-rays, and medications are reviewed. She is counseled about the importance of smoking cessation. MMCONSTANCEL / IJN: [id number] /
== END 2024-04-27 13:08 | disposition left against medical advice (07) | DRG 291 ==
LOC: EC 08:47 → 3SCARD 10:37
PROVIDERS: ADMIT Hospitalist; ATTEND Hospitalist
DX: I11.0 Hypertensive heart disease with heart failure (principal); I50.23 Acute on chronic systolic (congestive) heart failure; J96.01 Acute respiratory failure with hypoxia; J44.1 Chronic obstructive pulmonary disease with (acute) exacerbation; I25.10 Atherosclerotic heart disease of native coronary artery without angina pectoris; Z53.29 Procedure and treatment not carried out because of patient's decision for other reasons; I25.5 Ischemic cardiomyopathy; E78.5 Hyperlipidemia, unspecified; E11.9 Type 2 diabetes mellitus without complications; F17.210 Nicotine dependence, cigarettes, uncomplicated; F41.9 Anxiety disorder, unspecified; M19.90 Unspecified osteoarthritis, unspecified site; Z71.6 Tobacco abuse counseling; M41.9 Scoliosis, unspecified; K21.9 Gastro-esophageal reflux disease without esophagitis; Z79.02 Long term (current) use of antithrombotics/antiplatelets; Z79.82 Long term (current) use of aspirin; Z79.84 Long term (current) use of oral hypoglycemic drugs; Z79.899 Other long term (current) drug therapy; G89.29 Other chronic pain; I08.3 Combined rheumatic disorders of mitral, aortic and tricuspid valves; Z95.5 Presence of coronary angioplasty implant and graft; Z88.5 Allergy status to narcotic agent; Z88.2 Allergy status to sulfonamides; Z90.49 Acquired absence of other specified parts of digestive tract; Z96.643 Presence of artificial hip joint, bilateral; Z88.1 Allergy status to other antibiotic agents
CPT/HCPCS: 36415; 71046; 80048; 80053; 80061; 82607; 82747; 83605; 83735; 83880; 84100; 84484; 85025; 85610; 85730; 93005; 93308; 94640; 94760; 96365; 96366; 96375; 99291